=== PATIENT | female | born 1945 | race Hispanic/Latino ===

== ENCOUNTER 2017-09-03 11:21 | Outpatient (CLI) | payer MEDICARE, MEDICAID ==
[2017-09-03 13:32] LABS: Prothrombin Time 16.5 SEC (12.0-14.7)
[2017-09-03 13:33] LABS: Mean Platelet Volume 8.9 fL (7.4-10.4); PTT 37.1 SEC (22.9-36.1); Red Blood Cell (RBC) Count 3.74 mill/uL (4.20-5.40); White Blood Cell (WBC) Count 2.6 thou/uL (4.8-10.8)
[2017-09-03 13:56] LABS: ALT (SGPT) 23 U/L (8-55); AST (SGOT) 38 U/L (5-34); Alkaline Phosphatase 136 U/L (40-150); Anion Gap 8 mmol/L (10-20); BUN (Urea Nitrogen) 19 mg/dL (9.8-20.1); Calc. Creatinine Clearance 0 mL/min (70-130); Calcium 9.1 mg/dL (7.8-10.44); Carbon Dioxide 26 mmol/L (23-31); Chloride 106 mmol/L (98-107); Estimated GFR-MDRD 61; Globulin 4.2 g/dL (2.4-3.5); Protein, Total 7.2 g/dL (6.0-8.3)
== END 2017-09-03 11:22 | disposition home or self-care (01) ==
LOC: LABBT 11:21
PROVIDERS: ATTEND Internal Medicine Cardiovascular Disease
DX: Z01.818 Encounter for other preprocedural examination (principal); R94.39 Abnormal result of other cardiovascular function study
CPT/HCPCS: 80053; 85027; 85610; 85730

== ENCOUNTER 2017-09-06 05:46 | Day surgery (SDC) | payer MEDICARE, MEDICAID ==
[2017-09-03 12:04] VITALS: BMI 40.6
[2017-09-06] MEDS ORDERED: Heparin 1000 UNIT/NS 500ML(OR) 1,000 ML ONE (07:07)
[2017-09-06] MEDS ORDERED: Fentanyl 100 MCG/2 ML VIAL ONE (07:37)
[2017-09-06] MEDS ORDERED: Midazolam HCl 2 mg/2 ml Vial ONE (07:37)
--- NOTE | 2017-09-06 13:09 | CON ---
DATE OF CONSULTATION: 09/06/2017 REASON FOR CONSULTATION: Evaluation for coronary artery bypass surgery. PERTINENT HISTORY: The patient is a 72-year-old female who underwent cardiology evaluation following detection of a heart murmur. Transthoracic echo demonstrated preserved left ventricular function with ejection fraction of 60-65% and mild with peak and mean aortic valve gradients of 21 and 12 mmHg, respectively. Stress test, however, was abnormal with evidence of inferior ischemia. Based on this and complaints of exertional shortness of breath, cardiac catheterization was performed today which demonstrated left main and three-vessel coronary artery disease. At catheterization, ejection fraction was 60% with LVEDP of 16. The patient was subsequently referred for coronary artery bypass surgery. PAST MEDICAL HISTORY: 1. Obesity. 2. Hypertension. 3. Diabetes. 4. Dyslipidemia. 5. Primary biliary sclerosis/cirrhosis. 6. Profound thrombocytopenia. 7. Hypothyroidism. PAST SURGICAL HISTORY: C-sections x5. ALLERGIES: HYDROCODONE. SOCIAL HISTORY: Non-smoker. Nondrinker. FAMILY HISTORY: Noncontributory for premature coronary artery disease. REVIEW OF SYSTEMS: No history of stroke, kidney disease, or claudication. CURRENT MEDICATIONS: Tirosint 25 mcg daily, Ursodiol 300 mg q.i.d., metformin ER 500 mg daily, Lipitor 20 mg daily. LABORATORY AND X-RAY: Hemoglobin 12.0, platelet count 63,000. INR 1.3. Creatinine 0.86. PHYSICAL EXAMINATION: VITAL SIGNS: Height 4 feet 11 inches, weight 203 to 208 pounds. Blood pressure 121/53, heart rate 70. GENERAL: Obese female in no acute distress. She is fully oriented. HEENT: Grossly unremarkable. NECK: Without JVD or adenopathy. LUNGS: Clear with good inspiratory effort. HEART: Regular rate and rhythm with prominent systolic ejection murmur best heard right upper sternal border with transmission to each carotid area. ABDOMEN: Soft and nontender, without palpable mass. EXTREMITIES: Without edema. VASCULAR: Palpable radial, femoral, and dorsalis pedis pulses bilaterally. No distinct carotid bruits were heard. Abdominal aorta is nonpalpable. NEUROLOGIC: No focal deficits. IMPRESSION: Left main and three-vessel coronary artery disease with preserved left ventricular function. RECOMMENDATIONS: Coronary artery bypass surgery to which the patient is in agreement following discussion with her referring hand cutter apprentice and myself. The indications, benefits, alternatives, and risks were explained in detail to the patient and her accompanying family members. All questions were answered. The patient agrees to proceed without reservations. The case will be scheduled for next week allowing time for discussion with the patient's tailor garment fitter in reference to her liver condition. MICKEYD
[2017-09-06] MEDS ORDERED: Iopamidol 370 76% 100 ML VIAL ONE (15:32)
[2017-09-06] MEDS ORDERED: Iopamidol 370 76% 50 ML VIAL FS ONE (15:32)
== END 2017-09-06 13:30 | disposition home or self-care (01) ==
LOC: CCL 05:46
PROVIDERS: ATTEND Internal Medicine Cardiovascular Disease
DX: I25.10 Atherosclerotic heart disease of native coronary artery without angina pectoris (principal); E66.9 Obesity, unspecified; I10 Essential (primary) hypertension; E11.9 Type 2 diabetes mellitus without complications; E78.5 Hyperlipidemia, unspecified; K74.3 Primary biliary cirrhosis; E03.9 Hypothyroidism, unspecified; M19.90 Unspecified osteoarthritis, unspecified site; K21.9 Gastro-esophageal reflux disease without esophagitis; M48.00 Spinal stenosis, site unspecified; Z68.41 Body mass index [BMI] 40.0-44.9, adult; Z79.84 Long term (current) use of oral hypoglycemic drugs; Z79.899 Other long term (current) drug therapy; Z88.5 Allergy status to narcotic agent; Z88.6 Allergy status to analgesic agent; Z91.018 Allergy to other foods; Z98.42 Cataract extraction status, left eye; Z98.41 Cataract extraction status, right eye; Z96.1 Presence of intraocular lens; Z90.49 Acquired absence of other specified parts of digestive tract; Z98.890 Other specified postprocedural states
CPT/HCPCS: 80061; 82962; 93005; 93458; C1760; C1769; 36416; 93010; 99152; 99153; J1644; J2250; J3010

== ENCOUNTER 2017-09-10 08:05 | Inpatient (IN) | payer MEDICARE, MEDICAID ==
[2017-09-10] MEDS ORDERED: Heparin 10,000 UNITS/1 ML VIAL 30,000 UNITS in Sodium Chloride 0.9% 1,000 ML FS SCH (08:15)
--- NOTE | 2017-09-10 08:57 | RAD ---
2 VIEWS CHEST: Date: 09/10/17 HISTORY: Preoperative chest radiograph, 72-year-old female. FINDINGS: PA and lateral views of chest obtained. There is calcification of the aorta. The lungs are well aerat ed. No evidence of active intrathoracic disease seen. No evidence of effusions, pneumonia, or pneumot horax seen. IMPRESSION: Normal 2 views chest. POS: [facility]
[2017-09-10] MEDS ORDERED: CEFAZOLIN/Water 2 GM/20 ML SYRINGE ONE (09:54)
[2017-09-10] MEDS ORDERED: DOPamine 400 MG/D5W 250 ML 0 ML ONE (10:22)
[2017-09-10] MEDS ORDERED: Albumin 5% 0 ML ONE (10:22)
[2017-09-10] MEDS ORDERED: Midazolam HCl 5 mg/5 ml Vial ONE (10:24)
[2017-09-10] MEDS ORDERED: Fentanyl 250 MCG/5 ML VIAL ONE (10:25)
[2017-09-10] MEDS ORDERED: Norepinephrine 8 MG/0.9% NS 250 ML ONE (10:25)
[2017-09-10] MEDS ORDERED: Vecuronium 10 MG VIAL ONE ×2 (10:25→16:11)
[2017-09-10] MEDS ORDERED: Albumin 5% 500 ML ONE (13:24)
[2017-09-10] MEDS ORDERED: Bisacodyl 5 MG TAB PO PRN (15:31)
[2017-09-10] MEDS ORDERED: Nitroglycerin 50 MG/250 ML BOT 250 ML IVPB PRN (15:31)
[2017-09-10] MEDS ORDERED: Fentanyl 100 MCG/2 ML VIAL SLOW IVP PRN ×2 (15:31)
[2017-09-10] MEDS ORDERED: Morphine 2 mg/2ml in 0.9% NaCl PF SYRINGE SLOW IVP PRN (15:31)
[2017-09-10] MEDS ORDERED: Phenylephrine 10 MG/NS 250 ML 250 ML IVPB PRN (15:31)
[2017-09-10] MEDS ORDERED: Ondansetron HCl/PF 4 MG/2 ML Vial IVP PRN (15:31)
[2017-09-10] MEDS ORDERED: niCARdipine HCl 25 MG in Sodium Chloride 0.9% 250 ML 240 ML IVPB PRN (15:31)
[2017-09-10] MEDS ORDERED: Guaifenesin DM 100-10/5 ML UDCUP PO PRN (15:31)
[2017-09-10] MEDS ORDERED: Bisacodyl 10 MG SUPP PR PRN (15:31)
[2017-09-10] MEDS ORDERED: Promethazine HCl 25 MG/ML VIAL IM PRN (15:31)
[2017-09-10] MEDS ORDERED: Mag-Al 1200 mg/1200 mg/30 ML UDCUP PO PRN (15:31)
[2017-09-10] MEDS ORDERED: DOPamine 400 MG/D5W 250 ML 250 ML IVPB PRN (15:31)
[2017-09-10] MEDS ORDERED: Post-Op Insulin Drip Protocol IVPB ONE (15:31)
[2017-09-10] MEDS ORDERED: hydrALAZINE 20 MG/ML VIAL SLOW IVP PRN (15:31)
[2017-09-10] MEDS ORDERED: Dextrose 50% Abboject 50 ML SYRINGE SLOW IVP PRN (15:39)
[2017-09-10] MEDS ORDERED: Dextrose 5% in Water 1,000 ML IV PRN (15:39)
[2017-09-10] MEDS: Sodium Chloride 0.9% 1,000 ML IV SCH (15:45)
[2017-09-10 15:49] LABS: #Eosinphils 0.1 thou/uL (0.0-0.7); #Lymphocytes 0.6 thou/uL (1.20-3.40); #Monocytes 0.3 thou/uL (0.11-0.59); #Neutrophils 2.9 thou/uL (1.40-6.50); %Eosinophils 1.6 % (0.0-10.0); %Lymphocytes 14.9 % (21.0-51.0); %Monocytes 6.6 % (0.0-10.0); Hematocrit 25.1 % (36.0-47.0); Mean Platelet Volume 7.1 fL (7.4-10.4); White Blood Cell (WBC) Count 3.8 thou/uL (4.8-10.8)
[2017-09-10 15:54] LABS: PTT 41.1 SEC (22.9-36.1); Prothrombin Time 18.8 SEC (12.0-14.7)
[2017-09-10 16:05] LABS: Mechanical Tidal Volume 500 ml; Mode SIMV.PSV; Modified Allen's Test NOT DONE; Oxyhemoglobin 95.6 % (94.0-97.0); Pressure Support 10 cmH2O; Sodium 139 mmol/L (135-148); Vent YES
[2017-09-10 16:11] LABS: Anion Gap 13 mmol/L (10-20); BUN (Urea Nitrogen) 16 mg/dL (9.8-20.1); Calc. Creatinine Clearance 107 mL/min (70-130); Calcium 8.5 mg/dL (7.8-10.44); Carbon Dioxide 18 mmol/L (23-31); Chloride 108 mmol/L (98-107); Estimated GFR-MDRD 82
[2017-09-10] MEDS ORDERED: Lidocaine 1% PF 5 ML VIAL ONE (16:11)
[2017-09-10] MEDS ORDERED: Protamine Sulfate 250 MG/25 ML VIAL ONE (16:11)
[2017-09-10] MEDS ORDERED: Heparin 10,000 UNITS/ 10 ML VIAL ONE (16:11)
[2017-09-10] MEDS ORDERED: Aminocaproic Acid 5 GM/20 ML VIAL ONE (16:11)
[2017-09-10] MEDS ORDERED: Propofol 200 MG/20 ML VIAL ONE (16:11)
[2017-09-10] MEDS ORDERED: Sodium Bicarb 50 MEQ/50 ML Abboject 8.4% SYRINGE ONE (16:13)
[2017-09-10] MEDS: Potassium Chloride 20 MEQ/100 ML PREMIX BAG IVPB PRN ×2 (16:39→23:26)
--- NOTE | 2017-09-10 17:03 | OP ---
DATE OF SERVICE: 09/10/2017 PREOPERATIVE DIAGNOSES: Left main and three-vessel coronary artery disease with preserved left ventricular function. POSTOPERATIVE DIAGNOSES: Left main and three-vessel coronary artery disease with preserved left ventricular function. SURGEON: Jaxon Wade M.D. STATEMENT CLERK: Capo Gillette M.D. SPONGE AND NEEDLE COUNTS: Correct. ANESTHESIA: General. OPERATION PERFORMED: Coronary artery bypass grafting x2 with left internal mammary artery to LAD and reversed greater saphenous vein to OM. FINDINGS AT OPERATION: Essentially normal sized heart with no obvious LV scarring. Nothing suitable was found to graft in the RCA/PDA distribution. At the sites of distal anastomosis the LAD and OM were 1.5-1.75 mm vessels. Left internal mammary artery and greater saphenous vein were excellent conduits. DESCRIPTION OF OPERATION: The patient was taken to the operating room. Following the induction of general endotracheal anesthesia, the patient was prepped and draped in the usual sterile fashion. Sternotomy was performed. Thorough search revealed nothing suitable found to graft in the RCA/PDA system. A segment of left distal thigh greater saphenous vein was harvested. Left internal mammary artery was dissected in extrapleural fashion. An obvious bleeding diathesis was quite evident. This was presumed due to her cirrhosis and profound thrombocytopenia. Heparin dose was given achieving an ACT greater than 350. The operation was performed off pump using the Guidant system and mister-blower. The vein graft was anastomosed in end-to-side fashion to the OM using a continuous 7-0 Prolene suture. Partial clamp was applied to the ascending aorta and the proximal vein graft anastomosis performed to a punch hole using a continuous 6-0 Prolene suture. Partial clamp was removed and vein graft deaired. Left internal mammary artery was now anastomosed in end-to-side fashion to the LAD using a continuous 7-0 Prolene suture. Mammary artery pedicle was tacked to the epicardium using 6-0 Prolene sutures. Heparin was reversed with protamine. To assist with the obvious coagulopathy, 2 single donor packs of platelets and 2 units of FFP were given. Adequate hemostasis was now observed. Pericardium was not closed. Floyd drains were positioned within the pericardial well and left pleural cavity. Sternum was reapproximated with interrupted #5 stainless steel wires. Linea alba and fascia were closed with running #1 Vicryl sutures followed by closure of the subcutaneous tissues with a running 2-0 Vicryl suture. Skin was closed with a 3 -0 Vicryl subcuticular stitch. Prior to closure, vancomycin paste had been applied to the sternal halves. Platelet-enriched and platelet-poor plasma had also been applied to the sternal wound. The patient was taken to the ICU. GERMÁN
[2017-09-10] MEDS: Ketorolac Tromethamine 30 MG/ML VIAL IVP SCH ×2 (17:59→23:25)
[2017-09-10] MEDS: CEFAZOLIN/Water 2 GM/20 ML SYRINGE SLOW IVP SCH (18:01)
--- NOTE | 2017-09-10 18:03 | RAD ---
AP CHEST: Date: 09-10-17 History: Post-operative chest radiograph, open heart surgery. Comparison: 09-10-17 earlier in the day. FINDINGS: AP chest demonstrates sternotomy wires seen. Pericardial drain is in place. The patient has been intu bated. Endotracheal tube is in good position. Mediastinal drain is also in place. There has been plac ement of a right subclavian central line. Areas of atelectasis or patchy density developed in the left midlung, possibly representing atelectas is or patchy pneumonia. No evidence of effusion seen. IMPRESSION: 1. Lines and tubes in good position. 2. Mid left lung areas of atelectasis or pneumonia. POS: [facility]
--- NOTE | 2017-09-10 18:06 | EKG ---
Test Reason : POST CABG Blood Pressure : / mmHG Vent. Rate : 069 BPM Atrial Rate : 069 BPM P-R Int : 156 ms QRS Dur : 086 ms QT Int : 480 ms P-R-T Axes : 062 046 043 degrees QTc Int : 514 ms Normal sinus rhythm Prolonged QT Abnormal ECG When compared with ECG of 06-SEP-2017 06:29, (Unconfirmed) More ST sagging noted anterolaterally which may suggest ischemia. Non-specific change in ST segment in Anterior leads T wave inversion now evident in Anterior leads Confirmed by RANDY TILLEY ([id number]) on 09/10/2017 6:06:31 PM Referred By: CONSTANCE Confirmed By:RANDY TILLEY
[2017-09-10] MEDS: Famotidine/PF 20 mg/2ml Vial SLOW IVP SCH (20:58)
[2017-09-10] MEDS: Ursodiol 300 MG CAP PO SCH (21:00)
[2017-09-10 21:34] LABS: Oxyhemoglobin 97.6 % (94.0-97.0); Sodium 140 mmol/L (135-148)
[2017-09-10 21:39] LABS: Modified Allen's Test NOT DONE
[2017-09-10 21:40] LABS: Mode PSV/CPAP; Pressure Support 10 cmH2O; Vent YES
[2017-09-10 21:45] LABS: Hematocrit 24.2 % (36.0-47.0)
--- NOTE | 2017-09-10 22:22 | CON ---
DATE OF CONSULTATION: 09/10/2017 PRIMARY LEARNING SUPPORT ASSISTANT: Edmond Perez MD REASON FOR CONSULTATION: Status post bypass surgery. HISTORY OF PRESENT ILLNESS: Ms. Hamilton is a very pleasant 72-year-old female who comes to [facility] for planned bypass surgery. She had a stress test done recently that showed inferior isc hemia and in the setting of being short of breath with exertion, so she was taken to the medical lab director whe re she was found to have severe left main disease as well as an occluded RCA. She was referred for b ypass surgery. Dr. Wade performed surgery earlier today. She had a LEBRON to her LAD secondary to s evere left main disease and she also had a vein graft to OM. There was no reasonable target on the R CA, so this was not bypassed. On my evaluation, she is currently sedated and intubated, but starting to wake up and is following commands. PAST MEDICAL HISTORY: 1. Primary biliary cirrhosis. 2. Hyperlipidemia. 3. Type 2 diabetes. 4. Gastroesophageal reflux disease. 5. Hypertension. 6. Spinal stenosis. 7. Hypothyroidism. PAST SURGICAL HISTORY: 1. Appendectomy. 2. . 3. CABG x2 as above. OUTPATIENT MEDICATIONS: Include, 1. Flaxseed oil. 2. Levothyroxine 25 mcg a day. 3. Ursodiol. 4. Metformin 500 mg b.i.d. 5. Losartan 25 mg daily. 6. Vitamin C. ALLERGIES: To HYDROCODONE. FAMILY HISTORY: Mother with heart disease. Sister with lung cancer, brother with type 2 diabetes. SOCIAL HISTORY: No alcohol, tobacco or drugs. REVIEW OF SYSTEMS: Unobtainable as the patient is sedated and intubated. PHYSICAL EXAMINATION: VITAL SIGNS: Temperature 92.6 on arrival, she was on off pump procedure. Heart rate of 75, satting 100% on 50% FiO2. Blood pressure 105/37. GENERAL: Sedated and intubated. LUNGS: Have coarse breath sounds anteriorly. CARDIOVASCULAR: S1, S2. There is a 2 component rub. ABDOMEN: Soft, positive bowel sounds. EXTREMITIES: No edema. SKIN: Warm and dry. LABORATORY WORK: Reviewed. CBC, ABGs, Coags, CMP, and BNP. ASSESSMENT: 1. Status post 2-vessel bypass. 2. Multivessel coronary artery disease. 3. Hypertension. 4. Primary biliary cirrhosis with chronic thrombocytopenia. PLAN: 1. Continue supportive care. 2. Statin for life. 3. Beta luis and LUDY inhibitor once blood pressure allows. 4. PT once extubated and ready for it. Thank you for allowing us to participate in the care of your patient.
[2017-09-11] MEDS: CEFAZOLIN/Water 2 GM/20 ML SYRINGE SLOW IVP SCH ×2 (02:27→10:04)
[2017-09-11] MEDS: Sodium Chloride 0.9% 1,000 ML IV SCH (02:40)
[2017-09-11 05:10] LABS: #Lymphocytes 0.4 thou/uL (1.20-3.40); #Monocytes 0.3 thou/uL (0.11-0.59); #Neutrophils 2.9 thou/uL (1.40-6.50); %Eosinophils 0.1 % (0.0-10.0); %Lymphocytes 11.6 % (21.0-51.0); %Monocytes 8.9 % (0.0-10.0); Hematocrit 25.5 % (36.0-47.0); Mean Platelet Volume 7.7 fL (7.4-10.4); Red Blood Cell (RBC) Count 2.65 mill/uL (4.20-5.40); White Blood Cell (WBC) Count 3.7 thou/uL (4.8-10.8)
[2017-09-11 05:25] LABS: Anion Gap 9 mmol/L (10-20); BUN (Urea Nitrogen) 22 mg/dL (9.8-20.1); Calc. Creatinine Clearance 89 mL/min (70-130); Carbon Dioxide 23 mmol/L (23-31); Chloride 110 mmol/L (98-107); Estimated GFR-MDRD 66
[2017-09-11] MEDS: Ketorolac Tromethamine 30 MG/ML VIAL IVP SCH ×3 (05:56→17:13)
[2017-09-11] MEDS: Levothyroxine Sodium 25 MCG TAB PO SCH (05:58)
--- NOTE | 2017-09-11 06:30 | CON ---
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 Patient just underwent CABG. HISTORY OF PRESENT ILLNESS: Ms. Hamilton is a 72-year-old female who I have seen for several years wit h regard to primary biliary cirrhosis. She has been on ursodiol. She had biopsy proven of cirrhosis in 05/2014. She has been fairly well compensated. We saw her when she has had endoscopies in 2013 with polyps removed for screening purposes and had grade I to II varices with no stigmata of bleeding . She has had issues with thrombocytopenia and mild encephalopathy, for which she has been on lactul ose. She was actually going to have a followup endoscopy for varices screening this week when Dr. Lauren ken contacted me regarding the impending bypass surgery for 80% left main occlusion which is covered on cath, which was positive by abnormal stress test was prompted for easy fatigability being worked up by her cafe operator, Dr. Perez. Presently she is intubated in the ICU. There were no major comp lications during surgery. She did receive some FFP and platelets, but no transfusions. She was done off pump. On talking with the nurse, she needs to have good urine output here. MEDICATIONS AT HOME: Metformin, ursodiol, lisinopril, levothyroxine, lactulose, flax seed, atorvasta tin. PRESENT MEDICATIONS: P.r.n. Maalox, albumin p.r.n., aspirin 325 daily, , p.r.n. dopamine, Pepci d 20 IV q.12, p.r.n. fentanyl, hydralazine, Toradol 15 IV q.6 for 24 hours p.r.n. for pain, morphine p.r.n. for pain, levothyroxine, nicotine, nitroglycerin, Zofran, Actigall 300 mg p.o. t.i.d. PAST MEDICAL HISTORY: 1. Primary biliary cholangitis with cirrhosis diagnosed in 2013. 2. Morbid obesity. 3. Diabetes. 4. Coronary artery disease. 5. Dyslipidemia. 6. Thrombocytopenia secondary to portal hypertension. 7. Hypothyroidism. PAST SURGICAL HISTORY: x5, liver biopsy, upper and lower endoscopies, coronary artery bypa ss grafting today. ALLERGIES: HYDROCODONE and TYLENOL per patient. SOCIAL HISTORY: She is nonsmoker, nondrinker. FAMILY HISTORY: Noncontributory. REVIEW OF SYSTEMS: Unable to be obtained, as she is intubated presently. PHYSICAL EXAMINATION: VITAL SIGNS: Temperature is 98, pulse 70, blood pressure 113/45. Urine output 500 mL on arrival to the ICU, (04:54). LUNGS: Clear. HEART: Regular rate and rhythm. ABDOMEN: Nontender. EXTREMITIES: No clubbing, cyanosis or edema. LABORATORY STUDIES: White count 3.8, hemoglobin 8.5, it was 11 to 12 prior to the surgery on 09/03, platelet count 75,000. INR 1.5, 1.3. Sodium 135, potassium 3.9, BUN and creatinine are 16 and 0.7 w ith recent liver function tests AST 38, ALT 23, alkaline phosphatase 136, albumin 3, protein 4.2. ASSESSMENT: 1. Cirrhosis, primary biliary cirrhosis, Ana class A/B . 2. Mild encephalopathy and thrombocytopenia issues. 3. Morbid obesity. 4. Coronary artery disease, status post bypass surgery today. RECOMMENDATIONS: 1. We will need to continue lactulose when she can start p.o. Even with an NG tube if she is extuba mary carmen tomorrow, we could start it then, this would not exceed 24 hours with using the low-dose of Torad ol secondary to worsening renal dysfunction, which is already probably mild significant cirrhos is. 2. Agree with PPI or H2 luis for ulcer prophylaxis. 3. We will follow along during his hospitalization. 4. Problems with renal output. Could consider albumin 25 mg IV every 8 hours along with octreotide drip, which is going to help for the hepatorenal failure if there are no signs of sepsis or bleeding to explain prerenal perfusion issues.
--- NOTE | 2017-09-11 07:57 | RAD ---
PORTABLE UPRIGHT FRONTAL CHEST RADIOGRAPH: Date: 09-11-17 Comparison: 09-10-17 History: Evaluate chest following open heart surgery. FINDINGS: The endotracheal tube has been removed. Post-surgical drain overlies mid left hemithorax and mediasti num. Stable midline sternotomy wires and right sided vascular catheter. There is dense opacity in the left base suggesting left lower lobe consolidation/collapse. Midline sternotomy wires and mediastinal clips are present. IMPRESSION: Volume loss in the left lower lobe. Post-operative changes as above. POS: [facility]
[2017-09-11] MEDS ORDERED: FLU VACC TS2017-18 (>65YR) 0.5 ML SYRINGE IM ONE (09:00)
[2017-09-11] MEDS: Aspirin 325 MG TAB PO SCH (10:03)
[2017-09-11] MEDS: Ursodiol 300 MG CAP PO SCH ×3 (10:03→20:57)
[2017-09-11] MEDS: Famotidine/PF 20 mg/2ml Vial SLOW IVP SCH ×2 (10:04→20:57)
[2017-09-11] MEDS: Atorvastatin Calcium 20 MG TAB PO SCH (10:04)
[2017-09-11] MEDS ORDERED: Insulin Detemir 100 UNITS/ML 6 UNITS in Pre-Filled Syringe 1 EACH SC SCH (15:45)
[2017-09-11] MEDS ORDERED: Furosemide 40 MG/4 ML VIAL SLOW IVP SCH (17:45)
--- NOTE | 2017-09-11 18:50 | PDOC.CTH ---
Cardiology Progress Note - Subjective She is doing better today. Was extubated yesterday. - Objective Vital Signs Temp Pulse Resp Pulse Ox 09/11/17 15:00 98.4 F 09/11/17 11:00 98.2 F 09/11/17 08:26 100 09/11/17 08:00 98.7 F 76 16 Admit Weight 216 lb 8 oz Weight 216 lb 8 oz 09/10/17 09/11/17 09/12/17 06:59 06:59 06:59 Intake Total 1368 1699.3 Output Total 1495 1150 Balance -127 549.3 - Physical Examination General/Neuro: alert & oriented x3, NAD Neck: no JVD present Lungs: unlabored respirations Heart: RRR Abdomen: NT/ND Extremities: + edema B (1+) - Telemetry Telemetry Rhythm: NSR - Labs Result Diagrams: 09/11/17 03:45 09/11/17 03:45 - Assessment/Plan 1. Multivessel CAD 2. S/P CABG 3. Mild 4. Primary billiary cirrhosis. 5. 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 PLAN: - Aspirin and statin for life - BB and ACEI once BP allows. - PT once tolerated. - GI following for PBC.
[2017-09-11] MEDS ORDERED: Insulin Regular 300 UNITS/3 ML VIAL ONE (20:49)
[2017-09-11] MEDS: Insulin Regular 300 UNITS/3 ML VIAL SC PRN (20:58)
--- NOTE | 2017-09-11 22:24 | PRG ---
DATE OF SERVICE: 09/11/2017 SUBJECTIVE: Ms. Hamilton is postop day #1 from heart bypass surgery. She is mentating clearly. She h as been extubated. She is voiding and she started to eat. MEDICATIONS: Include Maalox, DuoNeb, Lipitor, Pepcid, sliding scale insulin, lactulose 20 grams b.i. d., Zofran p.r.n., Phenergan p.r.n., and ursodiol 300 mg p.o. t.i.d. OBJECTIVE: VITAL SIGNS: Temperature is 98, heart rate is 80 and blood pressure 119/25. LUNGS: Clear. HEART: Regular rate and rhythm. ABDOMEN: Nontender. EXTREMITIES: No clubbing, cyanosis or edema. LABORATORY STUDIES: White count 3.7 and hemoglobin 8.5, this has been stable since the postoperative setting. Her base hemoglobin is usually between 11 and 12, platelet count is 87,000. BUN and creat inine are 22 and 0.84 today. ASSESSMENT: 1. Status post off pump bypass for coronary artery disease. 2. Cirrhosis Ana A from primary biliary cholangitis. 3. History of mild hepatic encephalopathy, responsive to lactulose. 4. No prior varices, but the patient was due for followup EGD this year. This has been held on seco ndary to her need for bypass surgery. PLAN: We will continue to follow along with you, try to avoid NSAIDs, watch fluid status and we will go ahead and check her LFTs and INR again tomorrow to make sure liver did not suffer any shock with the surgery.
[2017-09-12] MEDS: traMADol HCl 50 MG TAB PO PRN ×3 (00:34→16:24)
[2017-09-12] MEDS: Insulin Regular 300 UNITS/3 ML VIAL SC PRN ×6 (00:43→20:18)
[2017-09-12 04:30] LABS: Anion Gap 7 mmol/L (10-20); BUN (Urea Nitrogen) 28 mg/dL (9.8-20.1); Calc. Creatinine Clearance 75 mL/min (70-130); Calcium 7.8 mg/dL (7.8-10.44); Carbon Dioxide 24 mmol/L (23-31); Chloride 108 mmol/L (98-107); Estimated GFR-MDRD 52
[2017-09-12 04:31] LABS: ALT (SGPT) 10 U/L (8-55); AST (SGOT) 36 U/L (5-34); Alkaline Phosphatase 82 U/L (40-150); Bilirubin, Direct 0.6 mg/dL (0.1-0.3); Protein, Total 5.4 g/dL (6.0-8.3)
[2017-09-12 04:34] LABS: #Lymphocytes 0.9 thou/uL (1.20-3.40); #Monocytes 0.5 thou/uL (0.11-0.59); #Neutrophils 3.3 thou/uL (1.40-6.50); %Eosinophils 0.8 % (0.0-10.0); %Lymphocytes 18.1 % (21.0-51.0); %Monocytes 10.8 % (0.0-10.0); Hematocrit 26.7 % (36.0-47.0); Mean Platelet Volume 8.5 fL (7.4-10.4); Red Blood Cell (RBC) Count 2.75 mill/uL (4.20-5.40); White Blood Cell (WBC) Count 4.7 thou/uL (4.8-10.8)
[2017-09-12 04:36] LABS: Prothrombin Time 18.7 SEC (12.0-14.7)
[2017-09-12] MEDS: Levothyroxine Sodium 25 MCG TAB PO SCH (06:27)
[2017-09-12 07:39] LABS: Oxyhemoglobin 97.8 % (94.0-97.0); Sodium 139 mmol/L (135-148)
[2017-09-12 07:40] LABS: Oxyhemoglobin 97.6 % (94.0-97.0); Sodium 138 mmol/L (135-148)
[2017-09-12 07:40] LABS: Oxyhemoglobin 97.8 % (94.0-97.0); Sodium 140 mmol/L (135-148)
[2017-09-12 07:40] LABS: Oxyhemoglobin 97.7 % (94.0-97.0); Sodium 139 mmol/L (135-148)
--- NOTE | 2017-09-12 08:06 | RAD ---
PORTABLE CHEST: COMPARISON: Prior day's exam. HISTORY: Respiratory distress. FINDINGS: Heart size appears slightly enlarged. There is postop sternotomy change. A right-sided subclavian l ine is present. Chest tubes remain in place. Atelectatic changes were seen in the lung bases. IMPRESSION: Stable exam. POS: [facility]
--- NOTE | 2017-09-12 08:54 | PDOC.CTH ---
Cardiology Progress Note - Subjective She is doing well. Only complaint is pain. She still has chest tubes in as they continue to drain. - Objective Vital Signs Temp Pulse Resp Pulse Ox 09/12/17 08:32 98 09/12/17 08:00 99.0 F 88 22 H 09/12/17 04:00 99.1 F 09/12/17 03:28 97 09/12/17 00:00 98.5 F Admit Weight 216 lb 8 oz Weight 218 lb 11.177 oz 09/11/17 09/12/17 09/13/17 06:59 06:59 06:59 Intake Total 1368 1974.3 400 Output Total 1495 1989 70 Balance -127 -15.7 330 - Physical Examination General/Neuro: alert & oriented x3, NAD Neck: no JVD present Lungs: CTA, unlabored respirations Heart: RRR Abdomen: NT/ND Extremities: + edema B (2+) - Telemetry Telemetry Rhythm: NSR - Labs Result Diagrams: 09/12/17 03:50 09/12/17 03:50 - Assessment/Plan 1. Multivessel CAD 2. S/P CABG 3. Mild 4. Primary billiary cirrhosis. 5. 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 PLAN: - Aspirin and statin for life - Will start low dose coreg. - ACEI once BP allows. - PT once tolerated. - GI following for PBC.
[2017-09-12] MEDS: Ursodiol 300 MG CAP PO SCH ×3 (09:00→20:15)
[2017-09-12] MEDS: Atorvastatin Calcium 20 MG TAB PO SCH (09:00)
[2017-09-12] MEDS: Aspirin 325 MG TAB PO SCH (09:01)
[2017-09-12] MEDS: Famotidine 20 MG TAB PO SCH ×2 (09:01→20:15)
[2017-09-12 09:06] LABS: Mode OR ABG; Vent YES
[2017-09-12 09:07] LABS: Mode OR ABG; Vent YES
[2017-09-12 09:08] LABS: Vent YES
[2017-09-12 09:08] LABS: Mode OR ABG; Vent YES
[2017-09-12 09:09] LABS: Mode OR ABG
[2017-09-12] MEDS ORDERED: Carvedilol 3.125 MG TAB PO SCH ×2 (17:00→18:30)
--- NOTE | 2017-09-12 21:47 | PRG ---
DATE OF SERVICE: 09/12/2017 HISTORY OF PRESENT ILLNESS: Ms. Hamilton is postoperative day #2 from her coronary bypass grafting. S he is doing well. She states he has been tired. PHYSICAL EXAMINATION: VITAL SIGNS: Temperature is 98. She is afebrile, blood pressure 131/47, pulse 71. She has had one bowel movement today she states. Ins and outs, 1973 and 1989. LUNGS: Clear. HEART: Regular rhythm. ABDOMEN: Nontender. EXTREMITIES: Without overt edema. PSYCHIATRIC: She is alert and oriented. She has no asterixis. LABORATORY STUDIES: White count 4.7, hemoglobin 9, platelet count 84,000. INR 1.5. Sodium 135, BUN and creatinine are 28 and 1.04. Liver function tests, bilirubin is 1. AST and ALT of 36 and 10. A lbumin is 2.5. ASSESSMENT: 1. Status post bypass grafting day 2. 2. Cirrhosis from primary biliary cholangitis, Ana A, stable. 3. Slight increase in creatinine. We will watch renal function closely. If she has issues with poo r renal output, we can consider albumin and octreotide to stable setting of hepatorenal syndrome. At home, she was not using diuretics on a regular basis. We will continue to follow.
--- NOTE | 2017-09-12 22:18 | CON ---
DATE OF CONSULTATION: 09/12/2017 HISTORY OF PRESENT ILLNESS: Ms. Hamilton is a very pleasant 72-year-old female who has undergone coron trena bypass grafting. I was consulted because of her presence in the Critical Care Unit. She had a stress test done as an outpatient showing inferior ischemia. She was complaining of shortn ess of breath with exertion at that time. She had left main disease as well as an occluded right cor onary. She has had a LEBRON to her LAD and vein graft to her OM. The right coronary was not bypassabl e. She has been extubated and doing well, comfortable in bed. She had no complaints when I saw her and said her chest did not really hurt very much surprisingly. PAST MEDICAL HISTORY: Remarkable for; 1. Primary biliary cirrhosis. 2. Lipid disorder. 3. Diabetes. 4. Hypertension. 5. Spinal stenosis. 6. Hypothyroidism. 7. Reflux disease. 8. History of an appendectomy. 9. History of . MEDICATIONS: Prior to admission she is on Synthroid, ursodiol, metformin and losartan. ALLERGIES: She reports intolerance to the HYDROCODONE. FAMILY HISTORY: Positive for heart disease, cancer and diabetes. SOCIAL HISTORY: She is a nonsmoker and nondrinker. REVIEW OF SYSTEMS: Otherwise negative. PHYSICAL EXAMINATION: GENERAL: She is in no distress, very pleasant and cooperative. VITAL SIGNS: Blood pressure 121/49, heart rate 86, respiratory rate is 14 and oximetry is 99%. HEENT: Pupils are equal. Sclerae is anicteric. NECK: Supple. LUNGS: Clear. HEART: Regular rhythm. S1 and S2 are normal. ABDOMEN: Soft and nontender. EXTREMITIES: Without clubbing, cyanosis or edema. LABORATORY DATA: White count 4.7, hemoglobin 9.0 and platelets 84,000. Sodium 135, potassium 4.2, chloride 108, bicarb 24, BUN 28, creatinine 1.04 and albumin was 2.5. IMPRESSION: Status post coronary bypass grafting, doing well postoperatively. We will be happy to ron eli along with the other physicians caring for her.
[2017-09-13] MEDS: Insulin Regular 300 UNITS/3 ML VIAL SC PRN ×5 (00:13→21:03)
[2017-09-13] MEDS: traMADol HCl 50 MG TAB PO PRN ×2 (04:03→21:07)
[2017-09-13] MEDS: Levothyroxine Sodium 25 MCG TAB PO SCH (04:07)
[2017-09-13 04:53] LABS: #Eosinphils 0.1 thou/uL (0.0-0.7); #Lymphocytes 1.1 thou/uL (1.20-3.40); #Monocytes 0.5 thou/uL (0.11-0.59); #Neutrophils 3.3 thou/uL (1.40-6.50); %Basophils 0.8 % (0.0-1.0); %Eosinophils 2.2 % (0.0-10.0); %Lymphocytes 21.1 % (21.0-51.0); %Monocytes 10.5 % (0.0-10.0); Hematocrit 25.5 % (36.0-47.0); Mean Platelet Volume 8.5 fL (7.4-10.4); Red Blood Cell (RBC) Count 2.63 mill/uL (4.20-5.40)
[2017-09-13 05:08] LABS: Anion Gap 6 mmol/L (10-20); BUN (Urea Nitrogen) 33 mg/dL (9.8-20.1); Calc. Creatinine Clearance 74 mL/min (70-130); Calcium 7.5 mg/dL (7.8-10.44); Carbon Dioxide 24 mmol/L (23-31); Chloride 105 mmol/L (98-107); Estimated GFR-MDRD 51
[2017-09-13 06:16] VITALS: BMI 42.5
[2017-09-13] MEDS ORDERED: Furosemide 40 MG TAB PO SCH (07:30)
[2017-09-13] MEDS ORDERED: Potassium Chloride 10 MEQ TAB PO SCH (08:00)
[2017-09-13] MEDS ORDERED: Carvedilol 3.125 MG TAB PO SCH (08:00)
[2017-09-13] MEDS: Famotidine 20 MG TAB PO SCH ×2 (08:14→21:02)
[2017-09-13] MEDS: Atorvastatin Calcium 20 MG TAB PO SCH (08:14)
[2017-09-13] MEDS: Ursodiol 300 MG CAP PO SCH ×3 (08:14→21:02)
[2017-09-13] MEDS: metFORMIN 500 MG TAB PO SCH (08:14)
[2017-09-13] MEDS: Aspirin 325 MG TAB PO SCH (08:15)
[2017-09-13] MEDS ORDERED: Mag-Al 1200 mg/1200 mg/30 ML UDCUP PO PRN (11:05)
[2017-09-13] MEDS ORDERED: Zolpidem Tartrate 5 MG TAB PO PRN (11:05)
[2017-09-13] MEDS ORDERED: Artificial Tear Sol 15 ML BOT EA EYE PRN (11:05)
[2017-09-13] MEDS ORDERED: Ondansetron HCl/PF 4 MG/2 ML Vial IVP PRN (11:05)
[2017-09-13] MEDS ORDERED: Bisacodyl 10 MG SUPP PR PRN (11:05)
[2017-09-13] MEDS ORDERED: Promethazine HCl 25 MG/ML VIAL IM PRN (11:05)
[2017-09-13] MEDS ORDERED: Nitroglycerin 0.4 MG TAB 1 EACH SL PRN (11:05)
[2017-09-13] MEDS ORDERED: Fentanyl 100 MCG/2 ML VIAL SLOW IVP PRN ×2 (11:05)
[2017-09-13] MEDS ORDERED: Bisacodyl 5 MG TAB PO PRN (11:05)
[2017-09-13] MEDS ORDERED: Guaifenesin DM 100-10/5 ML UDCUP PO PRN (11:05)
[2017-09-13] MEDS ORDERED: diphenhydrAMINE 25 MG CAP PO PRN (11:05)
[2017-09-13] MEDS ORDERED: Mineral Oil ENEMA PR PRN (11:05)
[2017-09-13] MEDS ORDERED: Milk Of Magnesia 30 ML UDCUP PO PRN (11:05)
--- NOTE | 2017-09-13 12:58 | PDOC.CTH ---
Cardiology Progress Note - Subjective She is feeling much better. She had her CT taken out and is more comfortable. - Objective Vital Signs Temp Pulse Resp 09/13/17 11:00 98.4 F 09/13/17 07:51 98.3 F 79 17 09/13/17 07:00 98.3 F 09/13/17 04:00 98.7 F Admit Weight 216 lb 8 oz Weight 218 lb 0.595 oz 09/12/17 09/13/17 09/14/17 06:59 06:59 06:59 Intake Total 1974.3 1575 700 Output Total 1989 525 10 Balance -15.7 1050 690 - Physical Examination General/Neuro: alert & oriented x3, NAD Neck: no JVD present Lungs: CTA, unlabored respirations Heart: RRR Abdomen: NT/ND Extremities: + edema B (1+) - Telemetry Telemetry Rhythm: NSR - Labs Result Diagrams: 09/13/17 03:55 09/13/17 03:55 - Assessment/Plan 1. Multivessel CAD 2. S/P CABG 3. Mild 4. Primary billiary cirrhosis. 5. 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 PLAN: - Aspirin and statin for life - Continue low dose coreg. - ACEI once BP allows. - Advance PT as tolerated. - GI following for PBC.
--- NOTE | 2017-09-13 16:25 | PRG ---
DATE OF SERVICE: 09/13/2017 SUBJECTIVE: Ms. Hamilton has done well with no new complaints. PHYSICAL EXAMINATION: Oximetry is 94%. She is afebrile. Heart rate is in 70s, blood pressure 105/4 5. No new exam findings. She has been transferred out of the critical care environment after multivessel CABG. She is under o ther problems of primary biliary cirrhosis and chronic thrombocytopenia. She appears stable and no acute pulmonary issues. We will sign off.
[2017-09-14] MEDS: Levothyroxine Sodium 25 MCG TAB PO SCH (05:03)
--- NOTE | 2017-09-14 06:15 | PRG ---
DATE OF SERVICE: 09/13/2017 SUBJECTIVE: Ms. Hamilton is doing well. She states the lactulose makes her nauseated, tolerates that well at home, but appears to make a little bit nauseated. She is voiding. She has had bowel movemen ts. OBJECTIVE: VITAL SIGNS: Temperature is 99, pulse 76, blood pressure 119/55. LUNGS: Clear. ABDOMEN: Soft. EXTREMITIES: Reveal no edema. LABORATORY STUDIES: White count 5, hemoglobin 8.7, platelet count 83,000. Sodium 131, potassium 4.2 , BUN and creatinine are 33 and 1.06, up from 28 on BUN and up from 1.04 on creatinine. ASSESEMENT: Prior biliary cirrhosis, well compensated. She has minimal problems with fluid overload , but does not take diuretics at home. She is on Ursodiol at home. She has been on some lactulose f or borderline mild encephalopathy at home. Here, it is making her nauseated. PLAN: Watch her renal function and will stop the lactulose and put her on some Xifaxan, which should work for the encephalopathy and give her relief from nausea that way she can do her physical therapy and rehabilitation.
[2017-09-14] MEDS: metFORMIN 500 MG TAB PO SCH (08:54)
[2017-09-14] MEDS: Famotidine 20 MG TAB PO SCH ×2 (08:54→20:57)
[2017-09-14] MEDS: Aspirin 325 MG TAB PO SCH (08:54)
[2017-09-14] MEDS: Atorvastatin Calcium 20 MG TAB PO SCH (08:55)
[2017-09-14] MEDS: Ursodiol 300 MG CAP PO SCH ×3 (08:55→20:57)
[2017-09-14] MEDS: Rifaximin 550 MG TAB PO SCH ×2 (10:17→20:57)
[2017-09-14 12:14] LABS: Anion Gap 8 mmol/L (10-20); BUN (Urea Nitrogen) 39 mg/dL (9.8-20.1); Calc. Creatinine Clearance 67 mL/min (70-130); Calcium 7.6 mg/dL (7.8-10.44); Carbon Dioxide 23 mmol/L (23-31); Chloride 101 mmol/L (98-107); Estimated GFR-MDRD 44
--- NOTE | 2017-09-14 13:55 | PDOC.CTH ---
Cardiology Progress Note - Subjective She is feeling well. Better every day. She has been walking with PT. - Objective Vital Signs Temp Pulse Pulse Pulse Resp BP BP 09/14/17 11:11 98.4 F 79 20 09/14/17 08:40 98.7 F 82 18 09/14/17 08:17 91 90 149/67 H 138/63 09/14/17 08:09 98.4 F 79 20 09/14/17 04:00 99.5 F 87 18 BP Pulse Ox Pulse Ox Pulse Ox 09/14/17 11:11 126/60 94 L 09/14/17 08:40 128/58 L 95 09/14/17 08:17 96 96 09/14/17 08:09 09/14/17 04:00 158/67 H 94 L Admit Weight 216 lb 8 oz Weight 222 lb 4.8 oz 09/13/17 09/14/17 09/15/17 06:59 06:59 06:59 Intake Total 1575 1180 Output Total 525 10 Balance 1050 1170 - Physical Examination General/Neuro: alert & oriented x3, NAD Neck: no JVD present Lungs: unlabored respirations Heart: RRR Abdomen: NT/ND Extremities: + edema B (1+) - Telemetry Telemetry Rhythm: NSR - Labs Result Diagrams: 09/13/17 03:55 09/14/17 11:35 - Assessment/Plan 1. Multivessel CAD 2. S/P CABG 3. Mild 4. Primary billiary cirrhosis. 5. 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 PLAN: - Aspirin and statin for life - Continue low dose coreg. - No ACEI for now due to slight bump in creatinine and BUN. - Advance PT as tolerated. - GI following for PBC.
[2017-09-14] MEDS: traMADol HCl 50 MG TAB PO PRN (20:57)
--- NOTE | 2017-09-14 21:50 | PRG ---
DATE OF SERVICE: 09/14/2017 SUBJECTIVE: Ms. Hamilton feels better, less nausea. She has been walking with PT. OBJECTIVE: VITAL SIGNS: Temperature 98, pulse 79, respirations 20 and blood pressure 149/69. LUNGS: Clear. HEART: Regular rate and rhythm. ABDOMEN: Nontender. 1+ edema in the lower extremities. LABORATORY DATA: Hemoglobin is 8.7 and platelet count 83,000. BUN and creatinine have increased to 39 and 1.19. ASSESSMENT: 1. Multiple vessel coronary artery disease, status post bypass, mild aortic stenosis. 2. Mild biliary cholangitis with cirrhosis, Ana A. 3. Thrombocytopenia secondary to portal hypertension. PLAN: Aspirin and statin, continue. Avoid diuretics at this point in time. She has a slightly elev ated BUN and creatinine. I think she did not have any decompensation of the hepatic function. She m ay be having little bit of renal dysfunction after bypass, but at this time, still voiding well. We will monitor her BUN and creatinine. If she would have worsening function, again involve [facility] in her care, place on octreotide and albumin for possible hepatorenal syndrome, although I think t hat is premature at this point in time. Dr. Ricks will be consumer marketing manager this weekend and will check on her.
[2017-09-15] MEDS: traMADol HCl 50 MG TAB PO PRN ×3 (04:04→18:44)
[2017-09-15] MEDS: Levothyroxine Sodium 25 MCG TAB PO SCH (06:03)
[2017-09-15 07:09] LABS: ALT (SGPT) 10 U/L (8-55); AST (SGOT) 29 U/L (5-34); Alkaline Phosphatase 94 U/L (40-150); Anion Gap 9 mmol/L (10-20); BUN (Urea Nitrogen) 42 mg/dL (9.8-20.1); Bilirubin, Total 1.2 mg/dL (0.2-1.2); Calc. Creatinine Clearance 74 mL/min (70-130); Calcium 7.6 mg/dL (7.8-10.44); Carbon Dioxide 22 mmol/L (23-31); Chloride 101 mmol/L (98-107); Estimated GFR-MDRD 50; Globulin 3.1 g/dL (2.4-3.5); Protein, Total 5.5 g/dL (6.0-8.3)
[2017-09-15] MEDS: Atorvastatin Calcium 20 MG TAB PO SCH (09:42)
[2017-09-15] MEDS: Aspirin 325 MG TAB PO SCH (09:42)
[2017-09-15] MEDS: Famotidine 20 MG TAB PO SCH ×2 (09:42→21:59)
[2017-09-15] MEDS: Ursodiol 300 MG CAP PO SCH ×3 (09:43→21:59)
[2017-09-15] MEDS: Rifaximin 550 MG TAB PO SCH ×2 (09:43→21:59)
[2017-09-15] MEDS: metFORMIN 500 MG TAB PO SCH (10:24)
--- NOTE | 2017-09-15 15:21 | PDOC.CTH ---
Cardiology Progress Note - Subjective Doing well. No new issues or concerns. Continues to walk around but only with PT. - Objective Vital Signs Temp Pulse Resp BP BP Pulse Ox 09/15/17 11:50 98.1 F 74 18 96 09/15/17 08:00 98.3 F 78 18 96 09/15/17 07:50 98.3 F 78 18 113/54 L 96 09/15/17 04:05 98.7 F 84 18 180/77 H 93 L Admit Weight 216 lb 8 oz Weight 221 lb 14.4 oz 09/14/17 09/15/17 09/16/17 06:59 06:59 06:59 Intake Total 1180 780 Output Total 10 880 Balance 1170 -100 - Physical Examination General/Neuro: alert & oriented x3, NAD Neck: no JVD present Lungs: CTA, unlabored respirations Heart: RRR Abdomen: NT/ND Extremities: + edema B (1+) - Telemetry Telemetry Rhythm: NSR - Labs Result Diagrams: 09/13/17 03:55 09/15/17 05:27 - Assessment/Plan 1. Multivessel CAD 2. S/P CABG 3. Mild 4. Primary billiary cirrhosis. 5. 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 PLAN: - Aspirin and statin for life - Continue low dose coreg. - No ACEI until her creatinine stabilizes. - Advance PT as tolerated. - GI following for PBC. - Home any time from cardiac standpoint.
--- NOTE | 2017-09-15 20:41 | PRG ---
DATE OF SERVICE: 09/15/2017 This is a cross coverage for Dr. Omero Evans. SUBJECTIVE: Ms. Alana Hamilton is a very pleasant 72-year-old [place] female with liver cirrhosi s, recent bypass surgery. Her blood urea nitrogen and serum levels were going up. Dr. Omero dubon felt it could be most likely due to diuresis. He advised the patient not to take anymore diure tics. She was also advised to increase her fluid intake. She actually has no symptoms. She is tole rating diet. No abdominal pain, nausea, vomiting, etc. OBJECTIVE: GENERAL: She is awake, alert and communicative. Afebrile. Pulse is 74 and blood pressure is 162/70 . CARDIOVASCULAR SYSTEM: First and second heart sounds are normal. LUNGS: Clear to auscultation. ABDOMEN: Soft and nontender. LABORATORY DATA: From today, sodium 128, potassium 4.3, chloride 101, bicarbonate 22, BUN is 42, but creatinine has come down from 1.19-1.08. Glucose is 126. ASSESSMENT AND PLAN: I have encouraged the patient to drink plenty of fluids today. We will repeat labs again tomorrow and watch that for the time being. If the numbers fail to come down, may conside r Nephrology consult.
[2017-09-16] MEDS: Levothyroxine Sodium 25 MCG TAB PO SCH (05:49)
[2017-09-16 06:26] LABS: Anion Gap 9 mmol/L (10-20); BUN (Urea Nitrogen) 35 mg/dL (9.8-20.1); Calc. Creatinine Clearance 83 mL/min (70-130); Calcium 7.6 mg/dL (7.8-10.44); Carbon Dioxide 22 mmol/L (23-31); Chloride 98 mmol/L (98-107); Estimated GFR-MDRD 58
[2017-09-16] MEDS: Aspirin 325 MG TAB PO SCH (09:16)
[2017-09-16] MEDS: Famotidine 20 MG TAB PO SCH (09:16)
[2017-09-16] MEDS: Rifaximin 550 MG TAB PO SCH (09:16)
[2017-09-16] MEDS: Atorvastatin Calcium 20 MG TAB PO SCH (09:16)
[2017-09-16] MEDS: metFORMIN 500 MG TAB PO SCH (09:17)
[2017-09-16] MEDS: Ursodiol 300 MG CAP PO SCH (09:17)
--- NOTE | 2017-09-16 11:41 | PRG ---
DATE OF SERVICE: 09/16/2017 SUBJECTIVE: Ms. Alana Hamilton is a 72-year-old female who had a gastric bypass surgery a few days ago. She is doing well from a cardiac standpoint. She has no chest pain, no palpitation, no dyspnea. She is tolerating diet. She does have liver cirrhosis and is being seen by Dr. Rene Evans. Her BUN and creatinine are slightly high over the weekend and was kept, because of the above reasons. Her diet is being withheld. She drinks plenty of fluids. She now offers no complain ts. PHYSICAL EXAMINATION: VITAL SIGNS: Afebrile, pulse is 79, blood pressure 137/62. CARDIOVASCULAR: Lungs within normal limits. ABDOMEN: Soft to palpate. No organomegaly. No tenderness. No masses. LABORATORY DATA: Shows a drop in serum creatinine level back to normal at 0.95, BUN is slightly high at 35. Her sodium is still low at 125 and chloride is normal at 98. Her blood sugar is 123. RECOMMENDATION: I encouraged the patient to drink plenty of free water and hopefully her BUN should come down back to baseline. From a GI standpoint, no more further recommendations.
[2017-09-16] MEDS: Insulin Regular 300 UNITS/3 ML VIAL SC PRN (12:29)
[2017-09-16 12:38] VITALS: TEMP 98.3
[2017-09-16 13:08] VITALS: BP 144/73
--- NOTE | 2017-09-17 14:42 | DIS ---
REASON FOR ADMISSION: Coronary artery bypass surgery. CLINICAL RESUME: The patient is a 72-year-old female found to have left main and severe 3-vessel cor onary artery disease with preserved left ventricular function following cardiac catheterization perfo rmed for an abnormal stress test. She was referred for coronary artery bypass surgery and on 017 underwent coronary artery bypass grafting x2 with left internal mammary artery to LAD and reverse d greater saphenous vein to OM. The operation was performed off pump. See operative report for laurie salgado. Her postoperative course was essentially unremarkable. She was discharged in stable condition on 09/16/2017. Follow up will be arranged in my office in 2 weeks or sooner p.r.n. Activity light with restrictions on driving and heavy lifting at this time. DIET: 1800 calorie ADA. DISCHARGE MEDICATIONS: She is to resume her complete home regimen without change. NEW MEDICATION: Coated aspirin 325 mg daily and Tramadol 50 mg q.6h. p.r.n.
== END 2017-09-16 14:15 | disposition home or self-care (01) | DRG 235 ==
LOC: SURG A 08:05 → CCU 12:20 → 2NO 09-13 14:06
PROVIDERS: ADMIT Thoracic Surgery (Cardiothoracic Vascular Surgery); ATTEND Thoracic Surgery (Cardiothoracic Vascular Surgery)
PROC: 021 Heart and Great Vessels, Bypass (ICD-10-PCS; principal; 2017-09-10)
PROC: 06BP3ZZ Excision of Right Saphenous Vein, Percutaneous Approach (ICD-10-PCS; 2017-09-10)
PROC: 30233K1 Transfusion of Nonautologous Frozen Plasma into Peripheral Vein, Percutaneous Approach (ICD-10-PCS; 2017-09-10)
PROC: 30233R1 Transfusion of Nonautologous Platelets into Peripheral Vein, Percutaneous Approach (ICD-10-PCS; 2017-09-10)
DX: I25.10 Atherosclerotic heart disease of native coronary artery without angina pectoris (principal); G93.40 Encephalopathy, unspecified; K76.7 Hepatorenal syndrome; K83.0 Cholangitis; Z68.41 Body mass index [BMI] 40.0-44.9, adult; K76.6 Portal hypertension; D69.59 Other secondary thrombocytopenia; E87.70 Fluid overload, unspecified; E66.01 Morbid (severe) obesity due to excess calories; K74.5 Biliary cirrhosis, unspecified; I10 Essential (primary) hypertension; E78.5 Hyperlipidemia, unspecified; Z98.84 Bariatric surgery status; Z88.5 Allergy status to narcotic agent; Z83.3 Family history of diabetes mellitus; Z82.49 Family history of ischemic heart disease and other diseases of the circulatory system; Z80.9 Family history of malignant neoplasm, unspecified; E11.9 Type 2 diabetes mellitus without complications
CPT/HCPCS: 36415; 36416; 36430; 71010; 71020; 80048; 80053; 80076; 82805; 85025; 85610; 85730; 86850; 86900; 86901; 93005; 93010; 93798; 94002; 94150; A4216; C1769; J1265; J1642; J1644; J1815; J1885; J1940; J2001; J2250; J2704; J2720; J3010; J3370; J3480; J7050; P9035; P9045; P9059; S0017; S0028

== ENCOUNTER 2017-09-25 09:10 | Inpatient (IN) | payer MEDICARE, MEDICAID ==
[2017-09-25 10:19] LABS: #Eosinphils 0.1 thou/uL (0.0-0.7); #Lymphocytes 0.9 thou/uL (1.20-3.40); #Monocytes 0.9 thou/uL (0.11-0.59); #Neutrophils 4.8 thou/uL (1.40-6.50); %Basophils 0.6 % (0.0-1.0); %Eosinophils 1.3 % (0.0-10.0); %Lymphocytes 12.7 % (21.0-51.0); Hematocrit 32.3 % (36.0-47.0); Mean Platelet Volume 7.7 fL (7.4-10.4); Red Blood Cell (RBC) Count 3.47 mill/uL (4.20-5.40); White Blood Cell (WBC) Count 6.7 thou/uL (4.8-10.8)
[2017-09-25 10:37] LABS: Lactic Acid - Sepsis 1.5 mmol/L (0.5-2.2)
[2017-09-25] MEDS ORDERED: Aspirin 325 MG TAB ONE (10:38)
[2017-09-25 10:42] LABS: ALT (SGPT) 18 U/L (8-55); AST (SGOT) 41 U/L (5-34); Alkaline Phosphatase 196 U/L (40-150); Anion Gap 9 mmol/L (10-20); BUN (Urea Nitrogen) 22 mg/dL (9.8-20.1); Bilirubin, Total 1.7 mg/dL (0.2-1.2); Calc. Creatinine Clearance 0 mL/min (70-130); Calcium 7.9 mg/dL (7.8-10.44); Carbon Dioxide 22 mmol/L (23-31); Chloride 91 mmol/L (98-107); Estimated GFR-MDRD 60; Globulin 3.7 g/dL (2.4-3.5)
[2017-09-25 10:46] LABS: Troponin I 0.017 ng/mL (< 0.028)
[2017-09-25] MEDS ORDERED: ISOVUE-370 76%-LOCM 1 ML ONE (11:48)
[2017-09-25 11:57] LABS: Bilirubin Small (Negative); Blood, Urine Negative (Negative); Glucose, Urine (Dipstick) Negative (Negative); Ketone, Urine Negative (Negative); Nitrite Negative (Negative); Protein, Urine (Dipstick) 30 mg/dL (Neg-Trace)
[2017-09-25 11:58] LABS: Bacteria/HPF None Seen HPF (None Seen); Hyaline Casts/LPF 4-6 HYALINE CAST LPF (0-3 Hyaline)
[2017-09-25] MEDS ORDERED: Furosemide 40 MG/4 ML VIAL ONE (12:06)
[2017-09-25] MEDS ORDERED: Furosemide 20 MG/2 ML VIAL ONE (12:06)
[2017-09-25 12:08] LABS: Renal Epithelial 0-3 HPF (0-3); Transitional Epithelial 0-3 HPF (0-3)
[2017-09-25 12:09] LABS: Yeast-All Forms None Seen HPF (None Seen)
--- NOTE | 2017-09-25 13:15 | CT ---
CT PULMONARY ANGIOGRAM WITH IV CONTRAST AND 3D POSTPROCESSING: Date: 09/25/17 HISTORY: Dyspnea. Recent CABG on 09/10/17. FINDINGS: There is good contrast opacification of the pulmonary arterial vasculature without filling defects to suggest pulmonary embolism. The thoracic aorta is well opacified without aneurysm or dissection. No filling defects are seen in the well opacified pulmonary vasculature to suggest pulmonary embolism. There are moderate size bilateral pleural effusions with adjacent infiltrates/atelectatic changes. A pericardial effusion is present. No pneumothoraces are seen. There are changes of median sternotomy. Degenerative changes are present in the spine. There is suggestion of a left adrenal mass which would be better evaluated with dedicated CT scan of the abdomen. IMPRESSION: 1. No CT evidence of pulmonary embolism. 2. Pericardial effusion. 3. Bilateral pleural effusions. POS: C
[2017-09-25 14:41] LABS: Anion Gap 10 mmol/L (10-20); BUN (Urea Nitrogen) 23 mg/dL (9.8-20.1); Calc. Creatinine Clearance 0 mL/min (70-130); Carbon Dioxide 21 mmol/L (23-31); Chloride 89 mmol/L (98-107); Estimated GFR-MDRD 60
[2017-09-25 14:43] LABS: Troponin I 0.023 ng/mL (< 0.028)
[2017-09-25 16:36] LABS: Troponin I 0.026 ng/mL (< 0.028)
[2017-09-25] MEDS ORDERED: Ondansetron ODT 4 MG TAB SL PRN (18:44)
[2017-09-25] MEDS ORDERED: Ondansetron HCl/PF 4 MG/2 ML Vial IVP PRN (18:44)
[2017-09-25] MEDS ORDERED: Dextrose 5% in Water 1,000 ML IV PRN (19:45)
[2017-09-25] MEDS ORDERED: Dextrose 50% Abboject 50 ML SYRINGE SLOW IVP PRN (19:45)
[2017-09-25] MEDS ORDERED: hydrALAZINE 20 MG/ML VIAL SLOW IVP PRN (19:45)
[2017-09-25] MEDS ORDERED: Furosemide 40 MG/4 ML VIAL SLOW IVP SCH (20:15)
[2017-09-25 20:28] LABS: Anion Gap 10 mmol/L (10-20); BUN (Urea Nitrogen) 24 mg/dL (9.8-20.1); Calc. Creatinine Clearance 0 mL/min (70-130); Calcium 7.8 mg/dL (7.8-10.44); Carbon Dioxide 22 mmol/L (23-31); Chloride 92 mmol/L (98-107); Estimated GFR-MDRD 55
[2017-09-25 20:35] LABS: Troponin I 0.032 ng/mL (< 0.028)
--- NOTE | 2017-09-25 20:41 | CON ---
DATE OF CONSULTATION: 09/25/2017 REASON FOR CONSULTATION: Pericardial effusion, hyponatremia, shortness of breath, recent bypass surg chalo. HISTORY OF PRESENT ILLNESS: Ms. Hamilton is a very pleasant patient of Dr. Perez. The patient underw ent coronary artery bypass grafting here recently done by Dr. Wade. The patient underwent coronary artery bypass grafting on 09/10 with internal mammary to the LAD and a vein graft to the marginal br anch up to the obtuse marginal branch. Patient was sent to [facility]. She said she has been doing o edmundo there, but did not have much energy or appetite. She feels short of breath with exertion and has not had much appetite. She feels lightheaded when she gets up. Serum sodium level was drawn and wa s very low at 116. She has been sent here for further evaluation. MEDICATIONS AT DISCHARGE: Aspirin and tramadol if needed. OTHER MEDICATIONS: 1. Metformin. 2. Levothyroxine. 3. Actigall 4. Lactulose. 5. Lisinopril 2.5 mg daily. 6. Atorvastatin 20 mg a day. There is no mention of a diuretic. PAST MEDICAL HISTORY: As mentioned, recent bypass surgery. REVIEW OF SYSTEMS: Constitutional: Positive for lack of energy and lack of appetite. Vision: No changes. Hearing: N o changes. Pulmonary: Positive for shortness of breath with exertion. Gastrointestinal: No nausea , vomiting, diarrhea, but she has got no appetite. Skin: No rashes. Neurologic: No unilateral wea kness or numbness. Psychiatric: No unusual depression or anxiety. PHYSICAL EXAMINATION: GENERAL: This is a pleasant elderly woman resting comfortably in no distress. VITAL SIGNS: Her blood pressure is 115/52, pulse is 92 regular. HEENT: Eyes, sclerae nonicteric. Mouth, mucous membranes moist. NECK: Supple, no lymphadenopathy. LUNGS: Clear, no wheezing, rales or rhonchi. CARDIAC: Normal S1, normal S2. I do not hear a murmur, rub or gallop. ABDOMEN: Obese, nontender, no hepatosplenomegaly. EXTREMITIES: Moderate peripheral edema. SKIN: Cool, but not cold. LABORATORY: EKG sinus rhythm, relatively low voltage in the limb leads. PERTINENT LABORATORIES: Sodium is 116, 128 at the time of discharge. Echocardiogram was done, eject ion fraction is normal. There is a moderate pericardial effusion with no evidence of tamponade. ASSESSMENT: 1. Recent bypass surgery. 2. Moderate pericardial effusion that did not appear to be tamponade. 3. Hyponatremia. PLAN: 1. I will need to hold diuretics. 2. Free water intake. 3. Hold lisinopril, it is relatively low blood pressure at this time. Dr. Perez will reevaluate e patient tomorrow.
--- NOTE | 2017-09-25 20:53 | HP ---
CHIEF COMPLAINT: Dizziness and shortness of breath. HISTORY OF PRESENT ILLNESS: This is a 72-year-old pleasant lady who had a CABG in our hospital 09/10 and was sent home and went and saw her medical doctor who sent her to the rehab about 5-6 days back. The patient was doing a little better at rehab, but then she became more and more short of jamaal ath over the last 4 or 5 days and became lightheaded on and off. They did check lab work in the reha b and found her sodium to be 118 and hence she was sent to our hospital for further evaluation and tr eatment. A CT scan was done in the emergency room which did not show PE, but showed pericardial effu annette, bilateral pleural effusion. Also, the sodium was 118. The patient also had a BNP of 432. Nancy leigh has been admitted for further evaluation and treatment of that. Denies any fever, chills, nause a, vomiting, diarrhea or dysuria. The patient says that her appetite has been poor too. PAST MEDICAL HISTORY: Significant for coronary artery disease, status post CABG, hypothyroidism, [facility] biliary cirrhosis, diabetes mellitus type 2, hypertension, history of congestive heart failure i n the past and hyperlipidemia. PAST SURGICAL HISTORY: Gallbladder surgery and CABG. ALLERGIES: TYLENOL, CHOCOLATE and HYDROCODONE. MEDICATIONS: Please see MAR. FAMILY HISTORY: Negative for diabetes and hypertension. SOCIAL HISTORY: Does not smoke, drink or do any recreational drugs. REVIEW OF SYSTEMS: Significant for shortness of breath, dizziness. There is no fever, no chills, no headache, no appetite, no latencies. No cough, no chest pain, diarrhea, dysuria, or polyuria. No m derrek or mood changes. No neck pain. PHYSICAL EXAMINATION: VITAL SIGNS: Blood pressure is 140/100, pulse is 96, afebrile, satting 94% on room air. GENERAL: Patient is lying in bed right now in no apparent distress. HEENT: Atraumatic and normocephalic. Pupils equally round, react to light. Extraocular movements i ntact. Mucous membranes moist. NECK: No JVD. LUNGS: Chest bibasilar rales heard, a midline scar seen. HEART: S1, S2 normal. No murmurs or gallops. ABDOMEN: Soft, obese. EXTREMITIES: No cyanosis or clubbing. Right side has +3 edema. Left side is bandaged at the site o f surgery present. NEUROLOGIC: Alert, awake, oriented. No cranial deficits. No sensorimotor deficits. LABORATORY DATA: CT as mentioned above, no PE, pericardial effusion, bilateral pleural effusion. WB C count is 6.7, hemoglobin is 10. UA shows proteinuria 4-6 wbcs. Serum osmolality is 261. BNP is 4 32. Troponin is 0.017, potassium is 4.4. Sodium is 118. Creatinine 0.9, albumin is 2.3. ASSESSMENT AND PLAN: 1. Hyponatremia. We will check her thyroid level. We will check TSH. Consult Nephrology and do ur ine osmolality. 2. Congestive heart failure and aggressive shortness of breath, we will do IV Lasix and echocardiogr am. 3. Pericardial effusion. We will do echocardiogram. Follow Cardiology consult. 4. Moderate protein malnutrition. We will encourage p.o. intake. 5. Anemia. We will monitor H&H this hospital stay. 6. Thrombocytopenia. We will monitor that this hospital stay. 7. Diabetes mellitus. We will do insulin sliding scale. 8. Hyperlipidemia, stable. 9. Coronary artery disease, status post coronary artery bypass graft. Follow Cardiology plan. 10. Sequential compressive devices for deep venous thrombosis prophylaxis. I will work with consult ants and further caring for the patient.
--- NOTE | 2017-09-25 21:46 | CON ---
DATE OF CONSULTATION: 09/25/2017 REASON FOR CONSULTATION: Hyponatremia. HISTORY OF PRESENT ILLNESS: This is a 72-year-old female with a history of recent CABG, presented to the hospital for shortness of breath started a couple of days ago. The patient was noted to have a low sodium and was given Lasix with sodium and decreasing down to 119. The patient denies no headache, numbness, tingling or weakness. Denies any nausea, vomiting, or chest pain. PAST MEDICAL HISTORY: Significant for CABG, primary biliary cirrhosis, lipid disorder, hypertension, spinal stenosis, hypothyroidism, reflux, appendectomy, C -section. HOME MEDICATIONS: List reviewed. ALLERGIES: Reviewed. REVIEW OF SYSTEMS: Fifteen point review of systems was performed and negative except positives noted above. GENERAL: Weakness- HEAD: Headache- NECK: No swelling or lumps. NOSE: No epistaxis or discharge. EYES: No diplopia or pain. RESPIRATORY: Dyspnea- CARDIOVASCULAR: Chest pain- GASTROINTESTINAL: Nausea- /[employer]: Hematuria- MUSCULOSKELETAL: No joint pain. NEUROPSYCHIATIC SYSTEMS: No suicidal ideation. No ideation. SKIN: Denies any rash or ulcer. CONSTITUTIONAL: No fever or chills. PHYSICAL EXAMINATION: GENERAL: Patient is awake, alert. VITAL SIGNS: Afebrile, pulse 75, breathing at 16, blood pressure was 127/60. GENERAL APPEARANCE AND MENTAL STATUS: Fair. HEAD/NECK: Normocephalic, atraumatic. EYES: EOMI. No deformity. EARS: Clear. No ulcers. NOSE: Intact. No lesions. MOUTH: Clear. No discharge. THROAT: Clear. No exudate. LUNGS: Clear. No crackles. CARDIAC: S1, S2. No rub. ABDOMEN: Benign. BS+. GENITALIA/RECTUM: Bull absent. BACK/EXTREMITIES: Edema 0+ Ulcer- NEUROLOGICAL: Alert and motor intact. SKIN: Rash- Bruise- LYMPHATICS: Edema- Ulcer- LABORATORY DATA: Sodium 116, potassium 4.3, creatinine 0.9. ASSESSMENT AND RECOMMENDATIONS: 1. Hyponatremia, most likely because of syndrome of inappropriate antidiuretic hormone secretion as well as excessive fluid intake. I would recommend fluid restriction. Avoid normal saline. 2. Anemia, stable. 3. Metabolic acidosis, stable. No indication for hypertonic saline. We will recheck sodium again in a few hours. [facility]
[2017-09-25 22:13] VITALS: BMI 46.4
[2017-09-26] MEDS ORDERED: Digoxin 0.5 MG/2 ML AMP ONE (05:35)
[2017-09-26 05:50] LABS: #Basophils 0.1 thou/uL (0.0-0.2); #Eosinphils 0.1 thou/uL (0.0-0.7); #Lymphocytes 1.1 thou/uL (1.20-3.40); #Monocytes 0.9 thou/uL (0.11-0.59); #Neutrophils 4.8 thou/uL (1.40-6.50); %Basophils 0.7 % (0.0-1.0); %Lymphocytes 15.6 % (21.0-51.0); %Monocytes 12.5 % (0.0-10.0); Hematocrit 35.5 % (36.0-47.0); Mean Platelet Volume 7.7 fL (7.4-10.4); Red Blood Cell (RBC) Count 3.79 mill/uL (4.20-5.40); White Blood Cell (WBC) Count 6.9 thou/uL (4.8-10.8)
[2017-09-26] MEDS ORDERED: Furosemide 40 MG/4 ML VIAL SLOW IVP SCH (06:00)
[2017-09-26 06:10] LABS: Anion Gap 14 mmol/L (10-20); BUN (Urea Nitrogen) 25 mg/dL (9.8-20.1); Calc. Creatinine Clearance 79 mL/min (70-130); Calcium 8.4 mg/dL (7.8-10.44); Carbon Dioxide 20 mmol/L (23-31); Chloride 91 mmol/L (98-107); Estimated GFR-MDRD 52
[2017-09-26 06:15] LABS: Troponin I 0.024 ng/mL (< 0.028)
[2017-09-26] MEDS ORDERED: Sodium Chloride 0.9% 1,000 ML IV SCH (06:15)
[2017-09-26] MEDS: Levothyroxine Sodium 25 MCG TAB PO SCH (06:29)
[2017-09-26] MEDS: traMADol HCl 50 MG TAB PO PRN (08:56)
--- NOTE | 2017-09-26 12:38 | EKG ---
Test Reason : STAT Blood Pressure : / mmHG Vent. Rate : 151 BPM Atrial Rate : 052 BPM P-R Int : 000 ms QRS Dur : 076 ms QT Int : 288 ms P-R-T Axes : 000 061 022 degrees QTc Int : 456 ms Supraventricular tachycardia Abnormal ECG Confirmed by KARINE PALM ([id number]) on 09/26/2017 12:38:31 PM Referred By: JOSE G Confirmed By:KARINE PALM
--- NOTE | 2017-09-26 13:13 | EKG ---
Test Reason : Blood Pressure : / mmHG Vent. Rate : 133 BPM Atrial Rate : 293 BPM P-R Int : 000 ms QRS Dur : 070 ms QT Int : 290 ms P-R-T Axes : 000 068 021 degrees QTc Int : 431 ms Atrial flutter with variable A-V block Nonspecific ST abnormality Abnormal ECG Confirmed by KARINE PALM ([id number]) on 09/26/2017 1:12:32 PM Referred By: SHANDA Confirmed By:KARINE PALM
[2017-09-26 13:32] LABS: Anion Gap 11 mmol/L (10-20); BUN (Urea Nitrogen) 28 mg/dL (9.8-20.1); Calc. Creatinine Clearance 74 mL/min (70-130); Carbon Dioxide 24 mmol/L (23-31); Chloride 92 mmol/L (98-107); Estimated GFR-MDRD 48
[2017-09-26] MEDS: Furosemide 40 MG/4 ML VIAL SLOW IVP SCH (14:06)
[2017-09-26] MEDS: Atorvastatin Calcium 20 MG TAB PO SCH (14:07)
[2017-09-26] MEDS: Aspirin 325 MG TAB PO SCH (14:07)
[2017-09-26] MEDS: Lisinopril 2.5 MG TAB PO SCH (14:07)
--- NOTE | 2017-09-26 14:12 | PRG ---
DATE OF SERVICE: 09/26/2017 SUBJECTIVE: This is a 72-year-old female being seen for hyponatremia. The patient denies any nausea , vomiting or chest pain. OBJECTIVE: GENERAL: Patient is awake and alert. VITAL SIGNS: Afebrile, pulse 85, breathing at 16 and blood pressure 102/70. HEAD/NECK: Normocephalic. Atraumatic. EYES: EOMI. No deformity. EARS: Clear. No ulcers. NOSE: Intact. No lesions. MOUTH: Clear. No discharge. THROAT: Clear. No exudate. LUNGS: Clear. No crackles. CARDIAC: S1, S2. No rub. ABDOMEN: Benign. BS+. GENITALIA/RECTUM: Bull absent. BACK/EXTREMITIES: Edema 0+. Ulcer-. NEUROLOGICAL: Alert and motor intact. SKIN: Rash-. Bruise-. LYMPHATICS: Edema-. Ulcer-. LABORATORY DATA: Showed a hemoglobin of 12.1. Sodium of 122. ASSESSMENT AND RECOMMENDATIONS: 1. Acute kidney injury with chronic kidney disease, stable. 2. Hyponatremia, multifactorial, most likely because of volume overload. We will follow sodium ever y 4 hours. 3. Metabolic acidosis, stable. No urgent indication for hypertonic saline or vaptan therapy.
--- NOTE | 2017-09-26 14:23 | PDOC.PN ---
- Subjective Encounter Start Date: 09/26/17 Encounter Start Time: 14:21 Patient seen and examined. No new complaints. No overnight events - Objective MAR Reviewed: Yes Vital Signs & Weight: Vital Signs (12 hours) Temp Pulse Resp BP BP BP Pulse Ox 09/26/17 14:07 96 102/70 09/26/17 10:48 97.8 F 136 H 20 102/70 94 L 09/26/17 08:00 98.2 F 85 17 155/60 H 94 L 09/26/17 06:29 96 09/26/17 04:00 97.8 F 96 18 119/58 L 92 L Weight Weight 228 lb 14.4 oz I&O: 09/25/17 09/26/17 09/27/17 06:59 06:59 06:59 Intake Total 370 Output Total 950 Balance -580 Result Diagrams: 09/26/17 05:02 09/26/17 12:47 Additional Labs: Accuchecks 09/26/17 09/25/17 10:51 22:20 POC Glucose 103 118 H Phys Exam - Physical Examination Constitutional: NAD HEENT: PERRLA Neck: no nodes bibasilar rales Cardiovascular: RRR, no significant murmur Gastrointestinal: soft, non-tender Musculoskeletal: pulses present Neurological: moves all 4 limbs Psychiatric: A&O x 3 Dx/Plan (1) Acute on chronic diastolic CHF (congestive heart failure) Code(s): I50.33 - ACUTE ON CHRONIC DIASTOLIC (CONGESTIVE) HEART FAILURE Status : Acute Comment: ef- 55% (2) Hyponatremia Code(s): E87.1 - HYPO-OSMOLALITY AND HYPONATREMIA Status: Acute (3) Pericardial effusion Code(s): I31.3 - PERICARDIAL EFFUSION (NONINFLAMMATORY) Status: Acute (4) Pleural effusion Code(s): J90 - PLEURAL EFFUSION, NOT ELSEWHERE CLASSIFIED Status: Acute (5) Diabetes Code(s): E11.9 - TYPE 2 DIABETES MELLITUS WITHOUT COMPLICATIONS Status: Acute (6) HTN (hypertension) Code(s): I10 - ESSENTIAL (PRIMARY) HYPERTENSION Status: Acute (7) Hyperlipidemia Code(s): E78.5 - HYPERLIPIDEMIA, UNSPECIFIED Status: Acute (8) Primary biliary cirrhosis Code(s): K74.3 - PRIMARY BILIARY CIRRHOSIS Status: Acute - Plan * cont current care * f/u dr andre and dr olmos rec's
--- NOTE | 2017-09-26 17:15 | PDOC.CTH ---
Cardiology Progress Note - Subjective Since starting diuresis her breathing is much better. still unable to lay flat. Her leg edema is significantly worse as compared to when she was discharged home just recently. She denies any chest pain, tightness, pressure. - Objective Vital Signs Temp Pulse Resp BP BP BP Pulse Ox 09/26/17 15:05 97.6 F 95 20 136/54 L 94 L 09/26/17 14:07 96 102/70 09/26/17 10:48 97.8 F 136 H 20 102/70 94 L 09/26/17 08:00 98.2 F 85 17 155/60 H 94 L 09/26/17 06:29 96 Weight 228 lb 14.4 oz 09/25/17 09/26/17 09/27/17 06:59 06:59 06:59 Intake Total 370 Output Total 950 Balance -580 - Physical Examination General/Neuro: alert & oriented x3, NAD Neck: no JVD present Lungs: unlabored respirations Heart: RRR Abdomen: NT/ND Extremities: + edema B (2+) - Telemetry Telemetry Rhythm: NSR - Labs Result Diagrams: 09/26/17 05:02 09/26/17 12:47 Troponin/CKMB CK-MB (CK-2) 3.5 ng/mL (0-6.6) 09/25/17 10:16 Troponin I 0.024 ng/mL (< 0.028) 09/26/17 05:02 - Assessment/Plan 1. Hyponatremia 2. Fluid overload 3. Primary Billiary Cirrhosis. 4. Pericardial effusion, moderate no tamponade. 5. Multivessel CAD s/p CABG 6. Mild . 7. Acute on chronic diastolic heart failure. PLAN: - Continue gentle diuresis. already feeling better from this standpoint. - Sodium already improving with diuresis and fluid restriction. - Will repeat echocardiogram tomorrow to assess extent of effusion. If worse may need drainage. - Consider getting GI involved due to her PBC and her increasing creatinine concern for Hepatorenal syndrome.
[2017-09-26] MEDS ORDERED: Clopidogrel Bisulfate 75 MG TAB ONE (17:36)
[2017-09-26 19:39] LABS: Anion Gap 9 mmol/L (10-20); BUN (Urea Nitrogen) 31 mg/dL (9.8-20.1); Calc. Creatinine Clearance 70 mL/min (70-130); Carbon Dioxide 24 mmol/L (23-31); Chloride 93 mmol/L (98-107); Estimated GFR-MDRD 45
[2017-09-27] MEDS: traMADol HCl 50 MG TAB PO PRN (00:52)
[2017-09-27 05:52] LABS: Anion Gap 12 mmol/L (10-20); BUN (Urea Nitrogen) 32 mg/dL (9.8-20.1); Calc. Creatinine Clearance 69 mL/min (70-130); Calcium 7.9 mg/dL (7.8-10.44); Carbon Dioxide 20 mmol/L (23-31); Chloride 93 mmol/L (98-107); Estimated GFR-MDRD 44
[2017-09-27] MEDS: Furosemide 40 MG/4 ML VIAL SLOW IVP SCH ×2 (05:57→13:59)
[2017-09-27] MEDS: Levothyroxine Sodium 25 MCG TAB PO SCH (05:57)
[2017-09-27] MEDS: Aspirin 325 MG TAB PO SCH (08:47)
[2017-09-27] MEDS: Lisinopril 2.5 MG TAB PO SCH (08:48)
[2017-09-27] MEDS: Atorvastatin Calcium 20 MG TAB PO SCH (08:48)
[2017-09-27] MEDS ORDERED: Preparation H HC 1% Cream 26 GM TUBE TOP PRN (10:31)
--- NOTE | 2017-09-27 10:52 | PRG ---
DATE OF SERVICE: 09/27/2017 SUBJECTIVE: This 72-year-old lady being seen for hyponatremia. The patient denies any nausea, vomit ing, or chest pain. PHYSICAL EXAMINATION: GENERAL: Patient is awake, alert. VITAL SIGNS: Afebrile, pulse 92, breathing at 16, blood pressure 125/60. OBJECTIVE: See above. Awake, alert, in no acute distress. GENERAL APPEARANCE AND MENTAL STATUS: Fair. HEAD/NECK: Normocephalic. Atraumatic. EYES: EOMI. No deformity. EARS: Clear. No ulcers. NOSE: Intact. No lesions. MOUTH: Clear. No discharge. THROAT: Clear. No exudate. LUNGS: Clear. No crackles. CARDIAC: S1, S2. No rub. ABDOMEN: Benign. BS+. GENITALIA/RECTUM: Bull absent. BACK/EXTREMITIES: Edema 0+ Ulcer- NEUROLOGICAL: Alert and motor intact. SKIN: Rash- Bruise- LYMPHATICS: Edema- Ulcer- LABORATORY DATA: Sodium 121. IMPRESSION AND PLAN: 1. Hyponatremia, multifactorial. Continue Lasix for volume overload. 2. Metabolic acidosis, stable. 3. Chronic kidney disease stage 3, stable. No indication for dialysis. I would recommend 800 mL fluid restriction. I will recheck sodium again at 2 p.m.
--- NOTE | 2017-09-27 13:16 | PDOC.PN ---
- Subjective Encounter Start Date: 09/27/17 Encounter Start Time: 13:15 Patient seen and examined. No new complaints. No overnight events sob better - Objective MAR Reviewed: Yes Vital Signs & Weight: Vital Signs (12 hours) Temp Pulse Resp BP BP Pulse Ox 09/27/17 11:25 97.8 F 90 14 133/60 95 09/27/17 08:48 92 09/27/17 08:42 97.9 F 92 18 125/60 94 L 09/27/17 08:00 97.9 F 92 18 94 L 09/27/17 04:10 98.1 F 88 24 H 136/97 H 92 L Weight Weight 228 lb 1.6 oz I&O: 09/26/17 09/27/17 09/28/17 06:59 06:59 06:59 Intake Total 370 1080 Output Total 950 1250 Balance -580 -170 Result Diagrams: 09/26/17 05:02 09/27/17 04:48 Additional Labs: Accuchecks 09/27/17 09/27/17 09/26/17 12:08 05:49 20:55 POC Glucose 157 H 159 H 136 H 09/26/17 16:41 POC Glucose 125 H Phys Exam - Physical Examination Constitutional: NAD HEENT: PERRLA Neck: no JVD Respiratory: no wheezing bibasilar rales Cardiovascular: no significant murmur Gastrointestinal: non-tender Musculoskeletal: pulses present Neurological: moves all 4 limbs Psychiatric: A&O x 3 Dx/Plan (1) Acute on chronic diastolic CHF (congestive heart failure) Code(s): I50.33 - ACUTE ON CHRONIC DIASTOLIC (CONGESTIVE) HEART FAILURE Status : Acute Comment: ef- 55% (2) Hyponatremia Code(s): E87.1 - HYPO-OSMOLALITY AND HYPONATREMIA Status: Acute (3) Pericardial effusion Code(s): I31.3 - PERICARDIAL EFFUSION (NONINFLAMMATORY) Status: Acute (4) Pleural effusion Code(s): J90 - PLEURAL EFFUSION, NOT ELSEWHERE CLASSIFIED Status: Acute (5) Diabetes Code(s): E11.9 - TYPE 2 DIABETES MELLITUS WITHOUT COMPLICATIONS Status: Acute (6) HTN (hypertension) Code(s): I10 - ESSENTIAL (PRIMARY) HYPERTENSION Status: Acute (7) Hyperlipidemia Code(s): E78.5 - HYPERLIPIDEMIA, UNSPECIFIED Status: Acute (8) Primary biliary cirrhosis Code(s): K74.3 - PRIMARY BILIARY CIRRHOSIS Status: Acute - Plan * doing well * f/u card and renal rec's
[2017-09-27 16:03] LABS: BUN (Urea Nitrogen) 34 mg/dL (9.8-20.1); Calc. Creatinine Clearance 68 mL/min (70-130); Calcium 7.8 mg/dL (7.8-10.44); Estimated GFR-MDRD 44
[2017-09-27 16:12] LABS: Anion Gap 13 mmol/L (10-20); Carbon Dioxide 20 mmol/L (23-31); Chloride 94 mmol/L (98-107)
--- NOTE | 2017-09-27 19:07 | PDOC.CTH ---
Cardiology Progress Note - Subjective Still volume up, mild diuresis since yesterday. Slight improvement in her symptoms. Denies any increase in SOB. - Objective Vital Signs Temp Pulse Pulse Pulse Resp BP BP 09/27/17 16:00 98.2 F 90 16 09/27/17 13:44 89 97 112/53 L 170/72 H 09/27/17 11:25 97.8 F 90 14 09/27/17 08:48 92 09/27/17 08:42 97.9 F 92 18 09/27/17 08:00 97.9 F 92 18 BP BP Pulse Ox Pulse Ox 09/27/17 16:00 125/56 L 97 09/27/17 13:44 95 09/27/17 11:25 133/60 95 09/27/17 08:48 09/27/17 08:42 125/60 94 L 09/27/17 08:00 94 L Weight 228 lb 1.6 oz 09/26/17 09/27/17 09/28/17 06:59 06:59 06:59 Intake Total 370 1080 320 Output Total 950 1250 550 Balance -580 -170 -230 - Physical Examination General/Neuro: alert & oriented x3, NAD Neck: other: (JVP up to 12 cm H2O) Lungs: unlabored respirations Heart: RRR Abdomen: NT/ND Extremities: + edema B (3+) - Telemetry Telemetry Rhythm: NSR - Labs Result Diagrams: 09/26/17 05:02 09/27/17 15:24 Troponin/CKMB CK-MB (CK-2) 3.5 ng/mL (0-6.6) 09/25/17 10:16 Troponin I 0.024 ng/mL (< 0.028) 09/26/17 05:02 - Assessment/Plan 1. Hyponatremia 2. Fluid overload 3. Primary Billiary Cirrhosis. 4. Pericardial effusion, moderate no tamponade. 5. Multivessel CAD s/p CABG 6. Mild . 7. Acute on chronic diastolic heart failure. PLAN: - Continue gentle diuresis. - Sodium continues to improve. - Will repeat echocardiogram to assess extent of effusion. If worse may need drainage.
[2017-09-28] MEDS: traMADol HCl 50 MG TAB PO PRN (00:03)
[2017-09-28 05:48] LABS: Anion Gap 10 mmol/L (10-20); BUN (Urea Nitrogen) 33 mg/dL (9.8-20.1); Calc. Creatinine Clearance 83 mL/min (70-130); Calcium 7.9 mg/dL (7.8-10.44); Carbon Dioxide 25 mmol/L (23-31); Chloride 94 mmol/L (98-107); Estimated GFR-MDRD 49
[2017-09-28] MEDS: Levothyroxine Sodium 25 MCG TAB PO SCH (05:52)
[2017-09-28] MEDS: Furosemide 40 MG/4 ML VIAL SLOW IVP SCH ×2 (05:52→13:50)
[2017-09-28] MEDS: Lisinopril 2.5 MG TAB PO SCH (09:30)
[2017-09-28] MEDS: Aspirin 325 MG TAB PO SCH (09:30)
[2017-09-28] MEDS: Atorvastatin Calcium 20 MG TAB PO SCH (09:30)
--- NOTE | 2017-09-28 10:11 | PRG ---
DATE OF SERVICE: 09/28/2017 SUBJECTIVE: This is a 72-year-old female being seen for hyponatremia. The patient denies any nausea , vomiting and chest pain. PHYSICAL EXAMINATION: GENERAL: Patient is awake, alert. VITAL SIGNS: Afebrile, pulse 75, respirations 16, blood pressure 137/60. HEAD/NECK: Normocephalic. Atraumatic. EYES: EOMI. No deformity. EARS: Clear. No ulcers. NOSE: Intact. No lesions. MOUTH: Clear. No discharge. THROAT: Clear. No exudate. LUNGS: Clear. No crackles. CARDIAC: S1, S2. No rub. ABDOMEN: Benign. BS+. GENITALIA/RECTUM: Bull absent. BACK/EXTREMITIES: Edema 4+. NEUROLOGICAL: Alert and motor intact. SKIN: Rash- Bruise- LYMPHATICS: Edema- Ulcer- LABORATORY DATA: Hemoglobin 12.1, creatinine 1.0. ASSESSMENT AND RECOMMENDATIONS: 1. Acute kidney injury with chronic kidney disease, stable. 2. Hyponatremia, improving. 3. Metabolic acidosis, stable. No indication for dialysis. Continue gentle diuresis.
--- NOTE | 2017-09-28 13:25 | PDOC.CTH ---
Cardiology Progress Note - Subjective She is doing better. Her edema is unchanged but her breathing is better. - Objective Vital Signs Temp Pulse Resp BP Pulse Ox 09/28/17 11:30 97.9 F 88 27 H 112/55 L 96 09/28/17 09:30 95 09/28/17 08:00 97.7 F 95 17 137/60 95 09/28/17 03:55 97.8 F 86 25 H 144/60 H 94 L Weight 250 lb 14.4 oz 09/27/17 09/28/17 09/29/17 06:59 06:59 06:59 Intake Total 1080 680 Output Total 1250 1350 Balance -170 -670 - Physical Examination General/Neuro: alert & oriented x3, NAD Neck: no JVD present Lungs: CTA, unlabored respirations Heart: RRR Abdomen: NT/ND Extremities: other: (no edema.) - Telemetry Telemetry Rhythm: NSR - Labs Result Diagrams: 09/26/17 05:02 09/28/17 04:46 Troponin/CKMB CK-MB (CK-2) 3.5 ng/mL (0-6.6) 09/25/17 10:16 Troponin I 0.024 ng/mL (< 0.028) 09/26/17 05:02 - Assessment/Plan 1. Hyponatremia 2. Fluid overload 3. Primary Billiary Cirrhosis. 4. Pericardial effusion, moderate no tamponade. 5. Multivessel CAD s/p CABG 6. Mild . 7. Acute on chronic diastolic heart failure. PLAN: - Continue gentle diuresis. - Sodium continues to improve. - Repeat echocardiogram pending.
--- NOTE | 2017-09-28 13:54 | PDOC.PN ---
- Subjective Encounter Start Date: 09/28/17 Encounter Start Time: 13:54 Patient seen and examined. No new complaints. No overnight events - Objective MAR Reviewed: Yes Vital Signs & Weight: Vital Signs (12 hours) Temp Pulse Resp BP Pulse Ox 09/28/17 11:30 97.9 F 88 27 H 112/55 L 96 09/28/17 09:30 95 09/28/17 08:00 97.7 F 95 17 137/60 95 09/28/17 03:55 97.8 F 86 25 H 144/60 H 94 L Weight Weight 250 lb 14.4 oz I&O: 09/27/17 09/28/17 09/29/17 06:59 06:59 06:59 Intake Total 1080 680 Output Total 1250 1350 Balance -170 -670 Result Diagrams: 09/26/17 05:02 09/28/17 04:46 Additional Labs: Accuchecks 09/28/17 09/28/17 09/27/17 11:53 05:52 20:27 POC Glucose 166 H 135 H 192 H 09/27/17 17:13 POC Glucose 169 H Phys Exam - Physical Examination Constitutional: NAD HEENT: PERRLA, moist MMs Neck: no JVD Respiratory: no wheezing Cardiovascular: no significant murmur Gastrointestinal: non-tender Musculoskeletal: edema present Neurological: moves all 4 limbs Psychiatric: A&O x 3 Dx/Plan (1) Acute on chronic diastolic CHF (congestive heart failure) Code(s): I50.33 - ACUTE ON CHRONIC DIASTOLIC (CONGESTIVE) HEART FAILURE Status : Acute Comment: ef- 55% (2) Hyponatremia Code(s): E87.1 - HYPO-OSMOLALITY AND HYPONATREMIA Status: Acute (3) Pericardial effusion Code(s): I31.3 - PERICARDIAL EFFUSION (NONINFLAMMATORY) Status: Acute (4) Pleural effusion Code(s): J90 - PLEURAL EFFUSION, NOT ELSEWHERE CLASSIFIED Status: Acute (5) Diabetes Code(s): E11.9 - TYPE 2 DIABETES MELLITUS WITHOUT COMPLICATIONS Status: Acute (6) HTN (hypertension) Code(s): I10 - ESSENTIAL (PRIMARY) HYPERTENSION Status: Acute (7) Hyperlipidemia Code(s): E78.5 - HYPERLIPIDEMIA, UNSPECIFIED Status: Acute (8) Primary biliary cirrhosis Code(s): K74.3 - PRIMARY BILIARY CIRRHOSIS Status: Acute - Plan * - Continue gentle diuresis. - Sodium continues to improve. - Repeat echocardiogram pending.
[2017-09-28] MEDS: HumaLOG 300 UNITS/3 ML VIAL SC PRN (17:54)
[2017-09-29] MEDS: traMADol HCl 50 MG TAB PO PRN ×2 (00:10→21:39)
[2017-09-29] MEDS: Levothyroxine Sodium 25 MCG TAB PO SCH (06:01)
[2017-09-29] MEDS: Furosemide 40 MG/4 ML VIAL SLOW IVP SCH ×2 (06:01→13:26)
[2017-09-29] MEDS: Atorvastatin Calcium 20 MG TAB PO SCH (09:06)
[2017-09-29] MEDS: Aspirin 325 MG TAB PO SCH (09:06)
[2017-09-29] MEDS: Lisinopril 2.5 MG TAB PO SCH (09:06)
[2017-09-29 10:06] LABS: Anion Gap 11 mmol/L (10-20); BUN (Urea Nitrogen) 34 mg/dL (9.8-20.1); Calc. Creatinine Clearance 74 mL/min (70-130); Calcium 7.8 mg/dL (7.8-10.44); Carbon Dioxide 24 mmol/L (23-31); Chloride 93 mmol/L (98-107); Estimated GFR-MDRD 45
--- NOTE | 2017-09-29 12:59 | PDOC.PN ---
- Subjective Encounter Start Date: 09/29/17 Encounter Start Time: 12:59 Patient seen and examined. No new complaints. No overnight events - Objective MAR Reviewed: Yes Vital Signs & Weight: Vital Signs (12 hours) Temp Pulse Resp BP BP BP Pulse Ox 09/29/17 10:50 98.9 F 87 18 125/58 L 95 09/29/17 09:06 91 107/72 09/29/17 07:40 98.2 F 91 18 107/72 96 09/29/17 07:20 98.2 F 91 18 96 09/29/17 04:00 98.4 F 88 19 124/58 L 93 L Weight Weight 243 lb 8 oz I&O: 09/28/17 09/29/17 09/30/17 06:59 06:59 06:59 Intake Total 680 614 Output Total 1350 1400 Balance -670 -786 Result Diagrams: 09/26/17 05:02 09/29/17 09:19 Additional Labs: Accuchecks 09/29/17 09/28/17 09/28/17 05:55 20:23 16:45 POC Glucose 129 H 184 H 188 H 09/28/17 11:53 POC Glucose 166 H Phys Exam - Physical Examination Constitutional: NAD HEENT: PERRLA Neck: no JVD Respiratory: no wheezing Cardiovascular: no significant murmur Gastrointestinal: non-tender Musculoskeletal: pulses present Neurological: moves all 4 limbs Psychiatric: A&O x 3 Dx/Plan (1) Acute on chronic diastolic CHF (congestive heart failure) Code(s): I50.33 - ACUTE ON CHRONIC DIASTOLIC (CONGESTIVE) HEART FAILURE Status : Acute Comment: ef- 55% (2) Hyponatremia Code(s): E87.1 - HYPO-OSMOLALITY AND HYPONATREMIA Status: Acute (3) Pericardial effusion Code(s): I31.3 - PERICARDIAL EFFUSION (NONINFLAMMATORY) Status: Acute (4) Pleural effusion Code(s): J90 - PLEURAL EFFUSION, NOT ELSEWHERE CLASSIFIED Status: Acute (5) Diabetes Code(s): E11.9 - TYPE 2 DIABETES MELLITUS WITHOUT COMPLICATIONS Status: Acute (6) HTN (hypertension) Code(s): I10 - ESSENTIAL (PRIMARY) HYPERTENSION Status: Acute (7) Hyperlipidemia Code(s): E78.5 - HYPERLIPIDEMIA, UNSPECIFIED Status: Acute (8) Primary biliary cirrhosis Code(s): K74.3 - PRIMARY BILIARY CIRRHOSIS Status: Acute - Plan * sodium improving * f/u card and renal plan
[2017-09-29] MEDS: HumaLOG 300 UNITS/3 ML VIAL SC PRN (13:27)
--- NOTE | 2017-09-29 21:22 | PRG ---
DATE OF SERVICE: 09/29/2017 SUBJECTIVE: Patient was seen and examined at bedside and overnight events noted. Patient denies any shortness of breath or chest pain or palpitation. No history of nausea or vomiting or diarrhea or f ever or chills or cramps. OBJECTIVE: GENERAL: This is well built female in no apparent distress. VITAL SIGNS: Temperature 97.9, pulse 80, respiratory 20, blood pressure 123/53. HEENT: Atraumatic, normocephalic. Oral mucosa is moist. NECK: Supple. CARDIOVASCULAR: S1, S2 heard. Rate and rhythm regular. RESPIRATORY: Clear to auscultation. GASTROINTESTINAL: Abdomen is soft. MUSCULOSKELETAL: No tenderness. No edema. DERMATOLOGIC: No skin rash. NEUROLOGIC: Alert and awake and oriented x3. No focal neurologic deficits. Moving all the extremit ies. PSYCHIATRIC: Mood and affect normal. LABORATORY DATA: Sodium 124, BUN 34, creatinine was 1.1. ASSESSMENT AND PLAN: 1. Acute kidney injury on chronic kidney disease, stable. 2. Hyponatremia, most likely from fluid overload. 3. Fluid overload. 4. Edema. 5. Hypertension. 6. Acidosis. 7. Continue on Lasix as tolerated and monitor one more day, seems like she has chronic hyponatremia. .
[2017-09-30] MEDS: Furosemide 40 MG/4 ML VIAL SLOW IVP SCH (06:08)
[2017-09-30] MEDS: Levothyroxine Sodium 25 MCG TAB PO SCH (06:09)
[2017-09-30 06:21] LABS: Anion Gap 10 mmol/L (10-20); BUN (Urea Nitrogen) 33 mg/dL (9.8-20.1); Calc. Creatinine Clearance 81 mL/min (70-130); Calcium 7.8 mg/dL (7.8-10.44); Carbon Dioxide 26 mmol/L (23-31); Chloride 97 mmol/L (98-107); Estimated GFR-MDRD 51
[2017-09-30] MEDS: Lisinopril 2.5 MG TAB PO SCH (09:17)
[2017-09-30] MEDS: Aspirin 325 MG TAB PO SCH (09:17)
[2017-09-30] MEDS: Atorvastatin Calcium 20 MG TAB PO SCH (09:17)
--- NOTE | 2017-09-30 11:53 | PDOC.PN ---
- Subjective Encounter Start Date: 09/30/17 Encounter Start Time: 11:52 Patient seen and examined. No new complaints. No overnight events - Objective MAR Reviewed: Yes Vital Signs & Weight: Vital Signs (12 hours) Temp Pulse Resp BP BP Pulse Ox 09/30/17 09:17 94 132/58 L 09/30/17 07:25 98.6 F 94 18 132/58 L 95 09/30/17 04:00 97.4 F L 88 18 117/56 L 94 L Weight Weight 238 lb 3.2 oz I&O: 09/29/17 09/30/17 10/01/17 06:59 06:59 06:59 Intake Total 614 674 Output Total 1400 1100 Balance -786 -426 Result Diagrams: 09/26/17 05:02 09/30/17 05:31 Additional Labs: Accuchecks 09/30/17 09/29/17 09/29/17 06:18 20:20 17:39 POC Glucose 125 H 150 H 144 H 09/29/17 10:50 POC Glucose 233 H Phys Exam - Physical Examination Constitutional: NAD HEENT: moist MMs Neck: no nodes Respiratory: no rales Cardiovascular: no significant murmur Gastrointestinal: non-tender Musculoskeletal: pulses present Neurological: normal sensation, moves all 4 limbs Psychiatric: A&O x 3 Dx/Plan (1) Acute on chronic diastolic CHF (congestive heart failure) Code(s): I50.33 - ACUTE ON CHRONIC DIASTOLIC (CONGESTIVE) HEART FAILURE Status : Acute Comment: ef- 55% (2) Hyponatremia Code(s): E87.1 - HYPO-OSMOLALITY AND HYPONATREMIA Status: Acute (3) Pericardial effusion Code(s): I31.3 - PERICARDIAL EFFUSION (NONINFLAMMATORY) Status: Acute (4) Pleural effusion Code(s): J90 - PLEURAL EFFUSION, NOT ELSEWHERE CLASSIFIED Status: Acute (5) Diabetes Code(s): E11.9 - TYPE 2 DIABETES MELLITUS WITHOUT COMPLICATIONS Status: Acute (6) HTN (hypertension) Code(s): I10 - ESSENTIAL (PRIMARY) HYPERTENSION Status: Acute (7) Hyperlipidemia Code(s): E78.5 - HYPERLIPIDEMIA, UNSPECIFIED Status: Acute (8) Primary biliary cirrhosis Code(s): K74.3 - PRIMARY BILIARY CIRRHOSIS Status: Acute - Plan * doing well * [facility] * out pt f/u with renal and card
[2017-09-30 12:31] VITALS: TEMP 98.9
[2017-09-30] MEDS ORDERED: Furosemide 40 MG TAB PO SCH (14:00)
[2017-09-30 14:37] VITALS: BP 155/68
--- NOTE | 2017-09-30 19:58 | PRG ---
DATE OF SERVICE: 10/01/2017 SUBJECTIVE: Patient was seen and examined at bedside and overnight events noted. Patient denies any shortness of breath or chest pain or palpitation. No history of nausea or vomiting or diarrhea or f ever or chills or cramps. OBJECTIVE: GENERAL: This is a well-built female in no apparent distress. VITAL SIGNS: Temperature 98.9, pulse 95, respiratory rate 18, blood pressure 125/57. HEENT: Atraumatic, normocephalic. Oral mucosa is moist. NECK: Supple. CARDIOVASCULAR: S1, S2 heard. Rate and rhythm regular. RESPIRATORY: Clear to auscultation. GASTROINTESTINAL: Abdomen is soft. MUSCULOSKELETAL: 2+ edema. DERMATOLOGIC: No skin rash. NEUROLOGIC: Alert and awake and oriented x3. No focal neurologic deficits. Moving all the extremiti es. PSYCHIATRIC: Mood and affect normal. LABORATORY DATA: Sodium is 129, BUN 33, creatinine is 1.05. ASSESSMENT AND PLAN: 1. Acute kidney injury on chronic kidney disease. Renal function is better. 2. Hyponatremia secondary to fluid overload. Continue on Lasix, we will recommend Lasix 40 p.o. b.i .d. 3. Fluid overload. Continue on Lasix. 4. Edema. 5. Hypertension. Continue Lasix 40 p.o. b.i.d. Advised to follow up in the clinic in 1 week. Evelyn blanchard and patient understand and patient was advised to call my clinic. She will make appointment.
--- NOTE | 2017-09-30 21:29 | DIS ---
DATE OF ADMISSION: 09/25/2017 DATE OF DISCHARGE: 09/30/2017 DIAGNOSES ON DISCHARGE: 1. Acute on chronic diastolic congestive heart failure. 2. Hyponatremia secondary to fluid overload, resolved. 3. Acute kidney injury on chronic kidney disease, stable. 4. Coronary artery disease status post recent catheterization, 09/10/2017. 5. Hypertension, stable. 6. Diabetes, stable. 7. Primary biliary cirrhosis, stable. 8. Pericardial effusion, moderate. No need for medical management. 9. Pleural effusion, stable. CONSULTANTS: Renal and Cardiology. DISCHARGE MEDICATIONS: Patient's discharge medications are the same as admit medications plus Lasix 40 mg p.o. b.i.d. BRIEF HOSPITAL COURSE: A 72-year-old pleasant lady came into the hospital with dizziness and shortne ss of breath. Please refer to my H&P for further details on initial evaluation. CT scan of the ches t did not show any PE. Sodium was 118. Renal was consulted, they gently diuresis the patient's sodi um improved with this hospital stay. The patient also had an echocardiogram, which showed further ev aluation of pericardial effusion which showed no evidence of tamponade and showed pericardial effusio n was moderate in nature. Cardiology was consulted. They wanted to medically manage it and follow h er. They agreed with the diuresis for the acute on chronic diastolic congestive heart failure. Nell ent improved with this treatment. She diuresed well this hospital stay, sodium come up. She did wel l with physical therapy right now, she is medically stable to be sent back to the [facility] for cardiac r ehabilitation. She is asked to come back to the emergency room in case symptoms recur. She is asked to follow up with Nephrology and Cardiology in a week. Total time for this discharge took 35 minutes.
--- NOTE | 2017-10-06 12:52 | EKG ---
Test Reason : SOB Blood Pressure : / mmHG Vent. Rate : 094 BPM Atrial Rate : 094 BPM P-R Int : 144 ms QRS Dur : 072 ms QT Int : 358 ms P-R-T Axes : 027 028 029 degrees QTc Int : 447 ms Normal sinus rhythm Cannot rule out Anterior infarct , age undetermined Nospecific ST-T segment abnormalities Abnormal ECG Confirmed by ENRIKE FREEMAN ([id number]), advertising editor RHODA BELLA ([id number]) on 10/06/2017 12:51:55 PM Referred By: Confirmed By:ENRIKE FREEMAN
== END 2017-09-30 14:25 | DRG 291 ==
LOC: ERS 09:10 → 2NO 13:51 → ERS 17:30
PROVIDERS: ADMIT Internal Medicine; ATTEND Internal Medicine
DX: I13.0 Hypertensive heart and chronic kidney disease with heart failure and stage 1 through stage 4 chronic kidney disease, or unspecified chronic kidney disease (principal); I50.33 Acute on chronic diastolic (congestive) heart failure; N17.9 Acute kidney failure, unspecified; E44.0 Moderate protein-calorie malnutrition; I30.9 Acute pericarditis, unspecified; D69.6 Thrombocytopenia, unspecified; E87.2 Acidosis; E87.1 Hypo-osmolality and hyponatremia; E11.22 Type 2 diabetes mellitus with diabetic chronic kidney disease; N18.3 Chronic kidney disease, stage 3 (moderate); Z68.42 Body mass index [BMI] 45.0-49.9, adult; I25.10 Atherosclerotic heart disease of native coronary artery without angina pectoris; K74.3 Primary biliary cirrhosis; Z95.1 Presence of aortocoronary bypass graft; E03.9 Hypothyroidism, unspecified; E78.5 Hyperlipidemia, unspecified; D64.9 Anemia, unspecified
CPT/HCPCS: 36415; 36416; 71275; 80048; 81003; 81015; 82140; 82553; 83605; 83880; 83930; 83935; 84100; 84300; 84443; 84484; 85025; 93005; 93010; 93306; 93798; 94760; 96374; J1160; J1940

== ENCOUNTER 2017-10-15 11:30 | Inpatient (IN) | payer MEDICARE, MEDICAID ==
[2017-10-15 12:22] LABS: #Eosinphils 0.1 thou/uL (0.0-0.7); #Lymphocytes 1.1 thou/uL (1.20-3.40); #Monocytes 0.5 thou/uL (0.11-0.59); #Neutrophils 4.9 thou/uL (1.40-6.50); %Basophils 0.5 % (0.0-1.0); %Eosinophils 1.3 % (0.0-10.0); %Lymphocytes 16.5 % (21.0-51.0); %Monocytes 8.2 % (0.0-10.0); %Neutrophils 73.6 % (42.0-75.0); Hemoglobin 10.8 g/dL (12.0-16.0); Mean Corpuscular HGB CONC 32.9 g/dL (32.0-36.0); Mean Corpuscular Hemoglobin 31.4 pg (27.0-31.0); Mean Corpuscular Volume 95.5 fl (81.0-99.0); Mean Platelet Volume 9.5 fL (7.4-10.4); Platelet Count 104 thou/uL (130-400); RBC Distribution Width 14.5 % (11.5-14.5); Red Blood Cell (RBC) Count 3.45 mill/uL (4.20-5.40); White Blood Cell (WBC) Count 6.6 thou/uL (4.8-10.8)
[2017-10-15 12:40] LABS: ALT (SGPT) 99 U/L (8-55); AST (SGOT) 224 U/L (5-34); Albumin 2.2 g/dL (3.4-4.8); Alkaline Phosphatase 211 U/L (40-150); Anion Gap 17 mmol/L (10-20); BUN (Urea Nitrogen) 58 mg/dL (9.8-20.1); Bilirubin, Total 1.6 mg/dL (0.2-1.2); Calc. Creatinine Clearance 0 mL/min (70-130); Calcium 8.9 mg/dL (7.8-10.44); Carbon Dioxide 25 mmol/L (23-31); Chloride 97 mmol/L (98-107); Estimated GFR-MDRD 13; Globulin 4.4 g/dL (2.4-3.5); Glucose 142 mg/dL (83-110); Lipase 45 U/L (8-78); Potassium 3.9 mmol/L (3.5-5.1); Protein, Total 6.6 g/dL (6.0-8.3); Sodium 135 mmol/L (136-145)
[2017-10-15 12:44] LABS: Troponin I 0.118 ng/mL (< 0.028)
[2017-10-15 12:45] LABS: CKMB 22.6 ng/mL (0-6.6)
--- NOTE | 2017-10-15 14:13 | RAD ---
PORTABLE CHEST: Date: 10-15-17 Provided Clinical History: Epigastric pain. FINDINGS: Comparison 09-12-17. Cardiac and mediastinal silhouette is unchanged in appearance. Median sternotomy changes are again se en. Evaluation is limited by patient body habitus. Pleural and left parenchymal opacity at the left l kathryn base cannot be excluded. The right lung is free of significant opacity. Atherosclerosis is re-dem onstrated. IMPRESSION: Left basilar pleural and/or parenchymal opacity. Follow up is recommended. POS: [facility]
[2017-10-15 14:25] LABS: Bilirubin Negative (Negative); Blood, Urine Large (Negative); Clarity CLOUDY (Clear); Glucose, Urine (Dipstick) Negative (Negative); Leukocyte Moderate (Negative); Nitrite Negative (Negative); Protein, Urine (Dipstick) 30 mg/dL (Neg-Trace); Specific Gravity, Urine 1.019 (1.002-1.036)
[2017-10-15 14:33] LABS: Bacteria/HPF 4+ HPF (None Seen); Pathc Cast-AUWi Flag 2.16 (0-2.49); Squamous Epithelial 0-3 HPF (0-3); WBC/HPF 21-50 HPF (0-3)
[2017-10-15 14:35] LABS: Hyaline Casts/LPF 0-3 HYALINE CAST LPF (0-3 Hyaline)
[2017-10-15 15:34] LABS: Troponin I 0.146 ng/mL (< 0.028)
[2017-10-15 15:38] LABS: CKMB 24.1 ng/mL (0-6.6)
[2017-10-15] MEDS ORDERED: Zolpidem Tartrate 5 MG TAB PO PRN (16:52)
--- NOTE | 2017-10-15 17:09 | PDOC.PN ---
- Subjective Encounter Start Date: 10/15/17 Encounter Start Time: 17:06 - Objective Resuscitation Status: Resuscitation Status FULL:Full Resuscitation MAR Reviewed: Yes Result Diagrams: 10/15/17 12:03 10/15/17 12:03 Radiology Reviewed by me: Yes (cxr-R pleural effusion) EKG Reviewed by me: Yes (RSR nonspecific ST-T abn) Phys Exam - Physical Examination Constitutional: NAD Neck: no JVD Respiratory: clear to auscultation bilateral Cardiovascular: RRR, no significant murmur Gastrointestinal: soft, non-tender, positive bowel sounds Musculoskeletal: edema present Dx/Plan (1) Acute renal failure Status: Acute Qualifiers: Acute renal failure type: unspecified Qualified Code(s): N17.9 - Acute kidney failure, unspecified (2) NSTEMI (non-ST elevated myocardial infarction) Code(s): I21.4 - NON-ST ELEVATION (NSTEMI) MYOCARDIAL INFARCTION Status: Acute (3) CAD (coronary artery disease) Code(s): I25.10 - ATHSCL HEART DISEASE OF [place] CORONARY ARTERY W/O ANG PCTRS Status: Chronic Qualifiers: Coronary Disease-Associated Artery/Lesion type: [place] artery [place] vs. transplanted heart: [place] heart Associated angina: without angina Qualified Code(s): I25.10 - Atherosclerotic heart disease of [place] coronary artery without angina pectoris (4) Diabetes Code(s): E11.9 - TYPE 2 DIABETES MELLITUS WITHOUT COMPLICATIONS Status: Acute Qualifiers: Diabetes mellitus type: type 2 Diabetes mellitus complication status: with kidney complications (5) HTN (hypertension) Code(s): I10 - ESSENTIAL (PRIMARY) HYPERTENSION Status: Acute Qualifiers: Hypertension type: essential hypertension Qualified Code(s): I10 - Essential (primary) hypertension (6) Pericardial effusion Code(s): I31.3 - PERICARDIAL EFFUSION (NONINFLAMMATORY) Status: Acute (7) Pleural effusion Code(s): J90 - PLEURAL EFFUSION, NOT ELSEWHERE CLASSIFIED Status: Chronic (8) Primary biliary cirrhosis Code(s): K74.3 - PRIMARY BILIARY CIRRHOSIS Status: Acute - Plan DVT proph w/heparin hold lasix, iv ns 100 ml/hr -: accu /ss -: heparin 5000 sc tid * .
[2017-10-15] MEDS ORDERED: HumaLOG 300 UNITS/3 ML VIAL SC PRN (17:20)
[2017-10-15] MEDS ORDERED: Dextrose 50% Abboject 50 ML SYRINGE SLOW IVP PRN (17:20)
[2017-10-15] MEDS ORDERED: Dextrose 5% in Water 1,000 ML IV PRN (17:20)
[2017-10-15 19:12] LABS: Troponin I 0.156 ng/mL (< 0.028)
[2017-10-15 20:16] VITALS: BMI 38.7
[2017-10-15] MEDS: Sodium Chloride 0.9% 1,000 ML IV SCH (20:40)
[2017-10-15] MEDS: Heparin 5,000 UNITS/ML VIAL SC SCH (20:40)
[2017-10-15 22:20] LABS: Troponin I 0.146 ng/mL (< 0.028)
--- NOTE | 2017-10-16 00:16 | HP ---
PRIMARY CARE PROVIDER: Dr. Santacruz. HISTORY OF PRESENT ILLNESS: The patient developed nausea and vomiting today, some abdominal pain, no diarrhea. She states she is constipated, it is worse with her daily dose of lactulose. She states she has had dizziness and near syncope trying to arise. She noticed decreased urine output, which is dark. PAST MEDICAL HISTORY: Pertinent for coronary artery bypass graft in 09/10/2017; primary biliary cirr hosis; hypothyroidism; diabetes mellitus, type 2; hypertension; history of heart failure; and dyslipi demia. PAST SURGICAL HISTORY: Gallbladder surgery and coronary artery bypass graft. ALLERGIES: TYLENOL and HYDROCODONE. MEDICATIONS: Aspirin 325 mg a day, Lipitor 20 mg a day, Lasix 40 mg twice a day, levothyroxine 25 mc g a day, lisinopril 2.5 mg a day, lactulose 20 grams twice a day, Actigall 300 mg 3 times a day, tram adol 50 mg p.o. q.6 hours, metformin 250 mg a day, Pepcid 20 mg twice a daily, potassium chloride 10 mEq a day, Zofran oral dissolving tablet 4 mg every 6 hours p.r.n. SOCIAL HISTORY: No tobacco, alcohol, or recreational drugs. CODE STATUS: FULL CODE status. Next of kin not identified on this study. FAMILY HISTORY: Negative for diabetes, hypertension or other inherited diseases. REVIEW OF SYSTEMS: As mentioned earlier. General: She has had dizziness with near syncope arising. No fevers, sweats or chills. Eyes: No double vision, blurred vision, flashing lights. Ears, nose and throat: No ear pain or drainage. No nasal bleeding. No trouble swallowing. Cardiac: No ches t pain, orthopnea or paroxysmal nocturnal dyspnea. Respirations: No cough, wheezing or asthma. Gas trointestinal: See present illness. Genitourinary: Decreased urine output and dark urine. Musculo skeletal: Swelling in her legs, chronic pain in her knees and ankles. Neurologic: No strokes, seiz ures or focal weakness. Psychiatric: No anxiety or depression. Skin: Easy bruising. Heme/Lymph: No tender or swollen lymph nodes in axilla, inguinal or cervical area. PHYSICAL EXAMINATION: GENERAL: She is an alert, pleasant, cooperative lady, in no distress at the present time. VITAL SIGNS: Blood pressure 110/54, pulse 89, respirations 16, temperature 98.5, O2 sat 95% to 96% o n room air. HEENT: Examination of her head, eyes, ears, nose and throat reveal pupils are equal, round, and reac tive to light. Extraocular movements are intact. Sclerae white. Tympanic membranes clear. Nose cl ear. Oral mucous membranes are dry. NECK: No jugular venous distention, adenopathy or thyromegaly. CHEST: Dull in the left base. No focal findings or rales or wheezes heard. HEART: Regular rate and rhythm. No appreciated murmurs or gallops. ABDOMEN: Soft, bowel sounds normal. No hepatosplenomegaly, no mass, no rebound. EXTREMITIES: Reveal 2+ edema with no cyanosis or clubbing. PULSES: Carotid, radial, femoral pulses intact. Pedal pulses diminished by edema. SKIN: Reveals bruises on her forearms. No rash. HEME/LYMPH: No tender or swollen lymph nodes in axilla, inguinal or cervical area. NEUROLOGICAL: Cranial nerves II-XII are intact. Deep tendon reflexes symmetric. Moves all extremit ies. X-RAY FINDINGS: EKG: Regular sinus rhythm, nonspecific T-wave changes, reviewed by me. Chest x-ray : No cardiomegaly, no infiltrate, evidence of effusion in the left lower lobe, reviewed by me. LABORATORY DATA: White count 6.6, hemoglobin 10.8, platelet count of 104,000. CK-MB 23 and 24, trop onin 0.12 and 0.15, bilirubin 1.6, AST 224, ALT 99, creatinine 3.44 with previous normal of 1, BUN 58 . Sodium 135. ADMITTING DIAGNOSES: 1. Acute renal failure. 2. Non-ST elevation myocardial infarction. 3. Primary biliary cirrhosis. 4. Coronary artery disease, post coronary artery bypass graft. 5. Pericardial effusion. 6. Diabetes mellitus, type 2. 7. Hypertension. PLAN: 1. Hold diuretics and lactulose. Start normal saline at 100 mL an hour. Serial basic metabolic pro file. 2. Continue serial enzymes. I am reluctant to start Lovenox in a patient with creatinine of 2.43. We will simply start subcutaneous heparin 3 times a day per deep venous thrombosis protocol since she has no chest pain or shortness of breath. 3. Selected home medicines. 4. Hyperglycemia protocol with Accu-Cheks a.c. and at bedtime.
[2017-10-16] MEDS: Levothyroxine Sodium 25 MCG TAB PO SCH (05:36)
[2017-10-16] MEDS: Sodium Chloride 0.9% 1,000 ML IV SCH ×2 (05:37→14:55)
[2017-10-16 05:57] LABS: #Eosinphils 0.1 thou/uL (0.0-0.7); #Lymphocytes 1.1 thou/uL (1.20-3.40); #Monocytes 0.4 thou/uL (0.11-0.59); #Neutrophils 2.7 thou/uL (1.40-6.50); %Basophils 0.5 % (0.0-1.0); %Eosinophils 2.6 % (0.0-10.0); %Lymphocytes 25.7 % (21.0-51.0); %Monocytes 9.2 % (0.0-10.0); %Neutrophils 61.9 % (42.0-75.0); Hemoglobin 9.3 g/dL (12.0-16.0); Mean Corpuscular HGB CONC 32.4 g/dL (32.0-36.0); Mean Corpuscular Volume 95.8 fl (81.0-99.0); Mean Platelet Volume 9.1 fL (7.4-10.4); Platelet Count 81 thou/uL (130-400); RBC Distribution Width 14.6 % (11.5-14.5); Red Blood Cell (RBC) Count 3.01 mill/uL (4.20-5.40); White Blood Cell (WBC) Count 4.4 thou/uL (4.8-10.8)
--- NOTE | 2017-10-16 06:08 | CON ---
DATE OF CONSULTATION: 10/15/2017 CONSULTING PHYSICIAN: Dr. Shearer. REASON FOR CONSULTATION: Acute kidney injury. REASON FOR ADMISSION: Abnormal labs, nausea and vomiting. HISTORY OF PRESENT ILLNESS: This is a 72-year-old female with history of coronary artery disease, hy pothyroidism, chronic kidney disease, hyponatremia, hypertension, cirrhosis, who came to the hospital with not feeling well, nausea, vomiting, and was found to have elevated creatinine. Nephrology was consulted for acute kidney injury. The patient is feeling slightly better today. She was on Lasix a nd she was on fluid restriction and she was having nausea, vomiting, and also diarrhea with lactulose for cirrhosis and she was seen in the hospital because of worsening labs. No chest pain, palpitatio n, no fever or chills reported. PAST MEDICAL HISTORY: Positive for primary biliary cirrhosis, coronary artery disease, hypothyroidis m, type 2 diabetes, hypertension, congestive heart failure, hyperlipidemia. PAST SURGICAL HISTORY: Cholecystectomy and CABG. HOME MEDICATIONS: Tramadol, metformin, Zestril, levothyroxine, Lasix, aspirin, and Paxil. ALLERGIES: TYLENOL, CHOCOLATE and HYDROCODONE. SOCIAL HISTORY: No smoking, alcohol or illicit drug abuse. FAMILY HISTORY: No history of any kidney disease. REVIEW OF SYSTEMS: The following complete review of systems was negative, unless otherwise mentioned in the HPI or below: Constitutional: Weight loss or gain, ability to conduct usual activities. Skin: Rash, itching. Eyes: Double vision, pain. ENT/Mouth: Nose bleeding, neck stiffness, pain, tenderness. Cardiovascular: Palpitations, dyspnea on exertion, orthopnea. Respiratory: Shortness of breath, wheezing, cough, hemoptysis, fever or night sweats. Gastrointestinal: Poor appetite, abdominal pain, heartburn, nausea, vomiting, constipation, or diarr hea. Genitourinary: Urgency, frequency, dysuria, nocturia. Musculoskeletal: Pain, swelling. Neurologic/Psychiatric: Anxiety, depression. Allergy/Immunologic: Skin rash, bleeding tendency. PHYSICAL EXAMINATION: GENERAL: This is an obese female, in mild distress. VITAL SIGNS: Temperature 98.4, pulse 80, respiratory rate 16, blood pressure 117/47. HEENT: Atraumatic, normocephalic. Oral mucosa is dry. NECK: Supple, no masses. CARDIOVASCULAR: S1, S2 heard. Rate and rhythm regular. RESPIRATORY: Clear. GASTROINTESTINAL: Abdomen is soft, obese, distended. MUSCULOSKELETAL: 2+ edema. DERMATOLOGIC: No skin rash. NEUROLOGIC: Alert and awake. PSYCHIATRIC: Mood and affect normal. LABORATORY DATA: Hemoglobin is 10.8. Potassium is 3.9, BUN is 58, creatinine 3.4 and was 1.05 on . Sodium is 135. ASSESSMENT AND PLAN: 1. Acute kidney injury on chronic kidney disease, stage 3. Renal function seems to be secondary to hydration as tolerated . 2. History of cirrhosis. 3. Hyponatremia, better. 4. Edema, chronic. 5. Hypoalbuminemia. 6. Hypertension. 7. Anemia, rule out bleed. 8. Pyuria, rule out infection. Rule out infection, continue hydration as tolerated, consider albumin. We will follow. Avoid nephro toxins. Thank you for the consultation.
[2017-10-16 06:50] LABS: Anion Gap 12 mmol/L (10-20); BUN (Urea Nitrogen) 59 mg/dL (9.8-20.1); Calc. Creatinine Clearance 23 mL/min (70-130); Calcium 8.3 mg/dL (7.8-10.44); Carbon Dioxide 26 mmol/L (23-31); Chloride 104 mmol/L (98-107); Estimated GFR-MDRD 15; Glucose 78 mg/dL (83-110); Potassium 3.5 mmol/L (3.5-5.1); Sodium 138 mmol/L (136-145)
--- NOTE | 2017-10-16 09:09 | PDOC.PN ---
- Subjective Encounter Start Date: 10/16/17 Encounter Start Time: :09 Subjective: no sob, less dizziness - Objective MAR Reviewed: Yes Vital Signs & Weight: Vital Signs (12 hours) Temp Pulse Resp BP Pulse Ox 10/16/17 07:56 97.6 F 82 18 132/60 95 10/16/17 04:00 98.0 F 78 18 131/63 98 10/16/17 00:53 98.2 F 81 18 103/49 L 94 L I&O: 10/15/17 10/16/17 10/17/17 06:59 06:59 06:59 Intake Total 957 Output Total 500 Balance 457 Result Diagrams: 10/16/17 05:07 10/16/17 05:07 Additional Labs: Accuchecks 10/16/17 10/15/17 05:44 20:40 POC Glucose 85 133 H Phys Exam - Physical Examination Constitutional: NAD Neck: no JVD Respiratory: clear to auscultation bilateral Cardiovascular: RRR, no significant murmur Gastrointestinal: soft, positive bowel sounds Musculoskeletal: edema present Dx/Plan (1) Acute renal failure Status: Acute Qualifiers: Acute renal failure type: unspecified Qualified Code(s): N17.9 - Acute kidney failure, unspecified (2) NSTEMI (non-ST elevated myocardial infarction) Code(s): I21.4 - NON-ST ELEVATION (NSTEMI) MYOCARDIAL INFARCTION Status: Acute (3) CAD (coronary artery disease) Code(s): I25.10 - ATHSCL HEART DISEASE OF [place] CORONARY ARTERY W/O ANG PCTRS Status: Chronic Qualifiers: Coronary Disease-Associated Artery/Lesion type: [place] artery [place] vs. transplanted heart: [place] heart Associated angina: without angina Qualified Code(s): I25.10 - Atherosclerotic heart disease of [place] coronary artery without angina pectoris (4) Diabetes Code(s): E11.9 - TYPE 2 DIABETES MELLITUS WITHOUT COMPLICATIONS Status: Acute Qualifiers: Diabetes mellitus type: type 2 Diabetes mellitus complication status: with kidney complications (5) HTN (hypertension) Code(s): I10 - ESSENTIAL (PRIMARY) HYPERTENSION Status: Acute Qualifiers: Hypertension type: essential hypertension Qualified Code(s): I10 - Essential (primary) hypertension (6) Pericardial effusion Code(s): I31.3 - PERICARDIAL EFFUSION (NONINFLAMMATORY) Status: Acute (7) Pleural effusion Code(s): J90 - PLEURAL EFFUSION, NOT ELSEWHERE CLASSIFIED Status: Chronic (8) Primary biliary cirrhosis Code(s): K74.3 - PRIMARY BILIARY CIRRHOSIS Status: Acute - Plan creat decreased , cont gentle iv fluids, serial BMP -: accu/ ss/ hold metformin * .
[2017-10-16] MEDS: Heparin 5,000 UNITS/ML VIAL SC SCH ×3 (10:23→21:09)
[2017-10-16] MEDS: Aspirin 325 MG TAB PO SCH (10:23)
[2017-10-16] MEDS: Atorvastatin Calcium 20 MG TAB PO SCH (10:23)
--- NOTE | 2017-10-16 11:07 | PRG ---
DATE OF SERVICE: 10/16/2017 SUBJECTIVE: Patient was seen and examined at bedside and overnight events noted. Patient denies any shortness of breath or chest pain or palpitation. No history of nausea or vomiting or diarrhea or f ever or chills or cramps. OBJECTIVE: GENERAL: This is an elderly female in no apparent distress. VITAL SIGNS: Temperature 97.6, pulse 82, respiratory rate 18 and blood pressure 132/60. HEENT: Atraumatic and normocephalic. Oral mucosa is moist. NECK: Supple. CARDIOVASCULAR: S1 and S2 heard. Rate and rhythm regular. RESPIRATORY: Clear to auscultation. GASTROINTESTINAL: Abdomen is soft. MUSCULOSKELETAL: No tenderness. No edema. DERMATOLOGIC: No skin rash. NEUROLOGIC: Alert, awake and oriented x3. No focal neurologic deficits. Moving all the extremities . PSYCHIATRIC: Mood and affect normal. LABORATORY DATA: Potassium is 3.5, BUN is 15 and creatinine is 3.03. ASSESSMENT AND PLAN: 1. Acute kidney injury on chronic kidney disease stage 3. Renal function is slightly improving with IV hydration. Patient continues to have edema. 2. History of cirrhosis. 3. Hyponatremia, better. 4. Edema, which is chronic. We will monitor respiratory status. 5. Hypoalbuminemia secondary to cirrhosis 6. Hypertension. 7. Anemia. Renal function seems to be stable with hydration. We will monitor respiratory and fluid status close ly. We will follow.
[2017-10-16] MEDS: traMADol HCl 50 MG TAB PO PRN (21:10)
[2017-10-17] MEDS: Sodium Chloride 0.9% 1,000 ML IV SCH ×3 (00:40→21:21)
[2017-10-17] MEDS: Levothyroxine Sodium 25 MCG TAB PO SCH (05:37)
[2017-10-17 06:01] LABS: Anion Gap 11 mmol/L (10-20); BUN (Urea Nitrogen) 51 mg/dL (9.8-20.1); Calc. Creatinine Clearance 31 mL/min (70-130); Carbon Dioxide 23 mmol/L (23-31); Chloride 108 mmol/L (98-107); Estimated GFR-MDRD 21; Potassium 3.3 mmol/L (3.5-5.1); Sodium 139 mmol/L (136-145)
[2017-10-17 06:02] LABS: Calcium 8.4 mg/dL (7.8-10.44); Glucose 76 mg/dL (83-110)
--- NOTE | 2017-10-17 08:42 | PDOC.PN ---
- Subjective Encounter Start Date: 10/17/17 Encounter Start Time: 08:41 Subjective: feels better, no BM - Objective MAR Reviewed: Yes Vital Signs & Weight: Vital Signs (12 hours) Temp Pulse Resp BP Pulse Ox 10/17/17 04:00 97.9 F 91 18 123/58 L 94 L I&O: 10/16/17 10/17/17 10/18/17 06:59 06:59 06:59 Intake Total 957 2672 Output Total 500 1000 Balance 457 1602 Result Diagrams: 10/16/17 05:07 10/17/17 04:55 Additional Labs: Accuchecks 10/17/17 10/16/17 10/16/17 06:10 20:22 16:28 POC Glucose 81 98 111 H 10/16/17 12:41 POC Glucose 103 Phys Exam - Physical Examination Constitutional: NAD Neck: no JVD Respiratory: clear to auscultation bilateral Cardiovascular: RRR, no significant murmur Gastrointestinal: soft, non-tender, positive bowel sounds Musculoskeletal: edema present Dx/Plan (1) Acute renal failure Status: Acute Qualifiers: Acute renal failure type: unspecified Qualified Code(s): N17.9 - Acute kidney failure, unspecified (2) NSTEMI (non-ST elevated myocardial infarction) Code(s): I21.4 - NON-ST ELEVATION (NSTEMI) MYOCARDIAL INFARCTION Status: Resolved (3) CAD (coronary artery disease) Code(s): I25.10 - ATHSCL HEART DISEASE OF [place] CORONARY ARTERY W/O ANG PCTRS Status: Chronic Qualifiers: Coronary Disease-Associated Artery/Lesion type: [place] artery [place] vs. transplanted heart: [place] heart Associated angina: without angina Qualified Code(s): I25.10 - Atherosclerotic heart disease of [place] coronary artery without angina pectoris (4) Diabetes Code(s): E11.9 - TYPE 2 DIABETES MELLITUS WITHOUT COMPLICATIONS Status: Acute Qualifiers: Diabetes mellitus type: type 2 Diabetes mellitus complication status: with kidney complications (5) HTN (hypertension) Code(s): I10 - ESSENTIAL (PRIMARY) HYPERTENSION Status: Acute Qualifiers: Hypertension type: essential hypertension Qualified Code(s): I10 - Essential (primary) hypertension (6) Pericardial effusion Code(s): I31.3 - PERICARDIAL EFFUSION (NONINFLAMMATORY) Status: Acute (7) Pleural effusion Code(s): J90 - PLEURAL EFFUSION, NOT ELSEWHERE CLASSIFIED Status: Chronic (8) Primary biliary cirrhosis Code(s): K74.3 - PRIMARY BILIARY CIRRHOSIS Status: Acute (9) Demand ischemia Code(s): I24.8 - OTHER FORMS OF ACUTE ISCHEMIC HEART DISEASE Status: Acute - Plan cont off diuretics, creat improved, cont iv saline -: reinstitute lactulose bid -: serial BMP -: selected home meds, still off LUDY, metformin * .
[2017-10-17] MEDS: Atorvastatin Calcium 20 MG TAB PO SCH (09:26)
[2017-10-17] MEDS: Famotidine 20 MG TAB PO SCH (09:26)
[2017-10-17] MEDS: Aspirin 325 MG TAB PO SCH (09:26)
[2017-10-17] MEDS: Heparin 5,000 UNITS/ML VIAL SC SCH ×3 (09:26→21:17)
[2017-10-17] MEDS: Ondansetron HCl/PF 4 MG/2 ML Vial IVP PRN (09:32)
[2017-10-17] MEDS ORDERED: Potassium Chloride 20 MEQ TAB PO SCH (15:45)
--- NOTE | 2017-10-17 21:29 | PRG ---
DATE OF SERVICE: 10/17/2017 SUBJECTIVE: Patient was seen and examined at bedside and overnight events noted. Patient denies any shortness of breath or chest pain or palpitation. No history of nausea or vomiting or diarrhea or f ever or chills or cramps. OBJECTIVE: General: Obese female in no apparent distress. Vital Signs: Temperature 97, pulse 92, respiratory rate 20, and blood pressure 142/62. HEENT: Atraumatic, normocephalic. Oral mucosa is moist. Neck: Supple. Cardiovascular: S1 and S2 heard. Rate and rhythm regular. Respiratory: Clear to auscultation. Gastrointestinal: Abdomen is soft. Musculoskeletal: No tenderness. No edema. Dermatologic: No skin rash. Neurologic: Alert and awake and oriented X3. No focal neurologic deficits. Moving all the extremiti es. Psychiatric: Mood and affect normal. LABORATORY DATA: Potassium is 3.3, BUN is 51, creatinine is 2.2. ASSESSMENT AND PLAN: 1. Acute kidney injury on chronic kidney disease. Renal function is slowly getting better. Give hy dration and monitor respiratory status. 2. History of cirrhosis. 3. Hyperkalemia, replaced. 4. Edema. 5. Hypoalbuminemia secondary to cirrhosis. 6. Hypertension. 7. Anemia. Plan is to monitor renal function closely.
[2017-10-18] MEDS: traMADol HCl 50 MG TAB PO PRN ×2 (00:31→23:08)
[2017-10-18] MEDS: Levothyroxine Sodium 25 MCG TAB PO SCH (05:55)
[2017-10-18] MEDS: Sodium Chloride 0.9% 1,000 ML IV SCH (05:55)
[2017-10-18 05:59] LABS: Anion Gap 11 mmol/L (10-20); BUN (Urea Nitrogen) 43 mg/dL (9.8-20.1); Calc. Creatinine Clearance 38 mL/min (70-130); Calcium 8.4 mg/dL (7.8-10.44); Carbon Dioxide 22 mmol/L (23-31); Chloride 112 mmol/L (98-107); Estimated GFR-MDRD 28; Glucose 84 mg/dL (83-110); Potassium 3.7 mmol/L (3.5-5.1); Sodium 141 mmol/L (136-145)
[2017-10-18] MEDS: Aspirin 325 MG TAB PO SCH (07:44)
[2017-10-18] MEDS: Famotidine 20 MG TAB PO SCH (07:44)
[2017-10-18] MEDS: Heparin 5,000 UNITS/ML VIAL SC SCH ×3 (07:45→21:23)
[2017-10-18] MEDS: Atorvastatin Calcium 20 MG TAB PO SCH (07:45)
[2017-10-18] MEDS: Ondansetron HCl/PF 4 MG/2 ML Vial IVP PRN ×2 (07:49→22:11)
--- NOTE | 2017-10-18 10:45 | PDOC.PN ---
- Subjective Encounter Start Date: 10/18/17 Encounter Start Time: 10:43 Subjective: feels well - Objective MAR Reviewed: Yes Vital Signs & Weight: Vital Signs (12 hours) Temp Pulse Resp BP Pulse Ox 10/18/17 08:00 98.0 F 95 16 94 L 10/18/17 07:00 98.0 F 95 16 123/58 L 95 10/18/17 03:36 97.9 F 89 16 141/65 H 95 10/17/17 23:25 98.1 F 96 20 136/62 94 L I&O: 10/17/17 10/18/17 10/19/17 06:59 06:59 06:59 Intake Total 2672 960 120 Output Total 1000 Balance 1672 960 120 Result Diagrams: 10/16/17 05:07 10/18/17 05:12 Additional Labs: Accuchecks 10/18/17 10/17/17 10/17/17 05:28 19:42 16:15 POC Glucose 93 96 88 10/17/17 10/17/17 12:21 11:36 POC Glucose 92 107 Phys Exam - Physical Examination Constitutional: NAD Respiratory: clear to auscultation bilateral Cardiovascular: RRR, no significant murmur Gastrointestinal: soft, positive bowel sounds Musculoskeletal: edema present Dx/Plan (1) Acute renal failure Status: Acute Qualifiers: Acute renal failure type: unspecified Qualified Code(s): N17.9 - Acute kidney failure, unspecified (2) NSTEMI (non-ST elevated myocardial infarction) Code(s): I21.4 - NON-ST ELEVATION (NSTEMI) MYOCARDIAL INFARCTION Status: Resolved (3) CAD (coronary artery disease) Code(s): I25.10 - ATHSCL HEART DISEASE OF [place] CORONARY ARTERY W/O ANG PCTRS Status: Chronic Qualifiers: Coronary Disease-Associated Artery/Lesion type: [place] artery [place] vs. transplanted heart: [place] heart Associated angina: without angina Qualified Code(s): I25.10 - Atherosclerotic heart disease of [place] coronary artery without angina pectoris (4) Diabetes Code(s): E11.9 - TYPE 2 DIABETES MELLITUS WITHOUT COMPLICATIONS Status: Acute Qualifiers: Diabetes mellitus type: type 2 Diabetes mellitus complication status: with kidney complications (5) HTN (hypertension) Code(s): I10 - ESSENTIAL (PRIMARY) HYPERTENSION Status: Acute Qualifiers: Hypertension type: essential hypertension Qualified Code(s): I10 - Essential (primary) hypertension (6) Pericardial effusion Code(s): I31.3 - PERICARDIAL EFFUSION (NONINFLAMMATORY) Status: Acute (7) Pleural effusion Code(s): J90 - PLEURAL EFFUSION, NOT ELSEWHERE CLASSIFIED Status: Chronic (8) Primary biliary cirrhosis Code(s): K74.3 - PRIMARY BILIARY CIRRHOSIS Status: Acute (9) Demand ischemia Code(s): I24.8 - OTHER FORMS OF ACUTE ISCHEMIC HEART DISEASE Status: Acute - Plan creat < 2, 1 more day iv fluids, rpt BMP in am -: cont lactulose, asa, statin, l-thyroxine * .
--- NOTE | 2017-10-18 19:05 | PRG ---
DATE OF SERVICE: 10/18/2017 SUBJECTIVE: Patient was seen and examined at bedside and overnight events noted. Patient denies any shortness of breath or chest pain or palpitation. No history of nausea or vomiting or diarrhea or f ever or chills or cramps. OBJECTIVE: GENERAL: This is a well-built female in no apparent distress. VITAL SIGNS: Temperature 97.9, pulse 80, respiratory rate 18, blood pressure 198/56. HEENT: Atraumatic, normocephalic. Oral mucosa is moist. NECK: Supple. CARDIOVASCULAR: S1, S2 heard. Rate and rhythm regular. RESPIRATORY: Clear to auscultation. GASTROINTESTINAL: Abdomen is soft. MUSCULOSKELETAL: 2+ edema. DERMATOLOGIC: No skin rash. NEUROLOGIC: Alert and awake and oriented x3. No focal neurologic deficits. Moving all the extremiti es. PSYCHIATRIC: Mood and affect normal. LABORATORY DATA: Potassium 3.7, BUN is 43, creatinine 1.7. ASSESSMENT AND PLAN: 1. Acute kidney injury on chronic kidney disease stage 3. Renal function with much improvement. We will stop IV fluids. Seems like her edema is getting worse and monitor respiratory status 2. History of cirrhosis. 3. Hypoalbuminemia. 4. Edema. 5. Hyperkalemia. 6. Hypertension. Overall renal function is stable. We will stop IV fluids, monitor renal function. Follow up with pr imary team.
[2017-10-19] MEDS: Levothyroxine Sodium 25 MCG TAB PO SCH (06:34)
[2017-10-19 06:47] LABS: Anion Gap 15 mmol/L (10-20); BUN (Urea Nitrogen) 28 mg/dL (9.8-20.1); Calc. Creatinine Clearance 44 mL/min (70-130); Carbon Dioxide 14 mmol/L (23-31); Chloride 115 mmol/L (98-107); Estimated GFR-MDRD 33; Glucose 91 mg/dL (83-110); Potassium 4.1 mmol/L (3.5-5.1); Sodium 140 mmol/L (136-145)
[2017-10-19] MEDS ORDERED: Lisinopril 2.5 MG TAB PO SCH (09:00)
[2017-10-19] MEDS ORDERED: metFORMIN 500 MG TAB PO SCH (09:00)
[2017-10-19] MEDS: Famotidine 20 MG TAB PO SCH (10:32)
[2017-10-19] MEDS: Aspirin 325 MG TAB PO SCH (10:32)
[2017-10-19] MEDS: Atorvastatin Calcium 20 MG TAB PO SCH (10:32)
--- NOTE | 2017-10-19 11:23 | DIS ---
DATE OF ADMISSION: 10/15/2017 DATE OF DISCHARGE: 10/19/2017 PRIMARY CARE PROVIDER: Jo Santacruz M.D. DISPOSITION: Discharged back to the [facility]. FINAL DIAGNOSES: Acute renal failure, [id number] myocardial infarction, coronary artery diseas e, diabetes mellitus type 2, primary biliary cirrhosis, hypothyroidism, and hypertension. DISCHARGE MEDICATIONS: Pepcid 20 mg a day, metformin 500 mg a day, lisinopril 2.5 mg a day, levothyr oxine 25 mcg a day, Kristalose 20 grams b.i.d., Lipitor 20 mg at bedtime, Actigall 300 mg p.o. t.i.d. , aspirin 325 mg a day, Lasix 20 mg a day, nadolol 20 mg p.o. daily. ALLERGIES: ACETAMINOPHEN and HYDROCODONE. CODE STATUS: FULL. PENDING AT THE TIME OF DISCHARGE: Nothing. HOSPITAL COURSE: The patient referred to [facility] by [facility] after transfer from [facility]. Patient with some abdominal pain, nausea and vomiting. The patient was found to have a creatinine of 3.44 with previous normal of 1 and BUN of 58. She had troponins o f 0.118, 0.146, 0.156. The patient was started on gentle IV fluids because of her history of primary biliary cirrhosis. She was seen in consultation by Dr. Raven Singh, who agreed with acute kidne y failure secondary to overaggressive diuresis. The patient was on fluid restriction, lactulose, and Lasix 40 mg twice a day. Her clinical condition improved rapidly. LABORATORY DATA: Initial electrolytes; sodium 135, potassium 3.9, BUN 58, creatinine 3.43 with GFR o f 30. Liver function test; bilirubin 1.6, AST 224, ALT 99 consistent with her primary biliary cirrho sis. She was given IV fluids at 100 mL an hour, Accu-Cheks were followed. On 10/16/2017, creatinine was 3.03; on 10/17/2017, 2.24; on 10/18/2017 1.79; today 1.56. No culture or specimens were done. PHYSICAL EXAMINATION: CURRENT VITAL SIGNS: Temperature 98, pulse 90, blood pressure 125/56, respirations 16. CARDIORESPIRATORY: Exam is normal. MUSCULOSKELETAL: She has her usual 1-2+ edema. She is being transferred back to the senior care unit at [facility] for continuing PT, OT. CONSULTATION: Dr. Raven Singh. PROCEDURES: None. FOLLOWUP: Will be at [facility] and eventually with Dr. Santacruz after she leaves rehabilitation. The patient needs to have a basic metabolic profile repeated in 1 week.
[2017-10-19 11:59] VITALS: BP 152/118; TEMP 97.7
[2017-10-19] MEDS: Heparin 5,000 UNITS/ML VIAL SC SCH (13:01)
--- NOTE | 2017-10-19 13:59 | PRG ---
DATE OF SERVICE: 10/19/2017 SUBJECTIVE: Patient was seen and examined at bedside and overnight events noted. Patient denies any shortness of breath or chest pain or palpitation. No history of nausea or vomiting or diarrhea or f ever or chills or cramps. OBJECTIVE: General: This is a well-built female in no acute distress. VITAL SIGNS: Temperature 98.0, pulse 92, respiration 16, blood pressure 124/56. HEENT: Atraumatic, normocephalic. Oral mucosa is moist. NECK: Supple. CARDIOVASCULAR: S1, S2 heard. Rate and rhythm regular. RESPIRATORY: Clear to auscultation. GASTROINTESTINAL: Abdomen is soft. MUSCULOSKELETAL: No tenderness, no edema. DERMATOLOGIC: No skin rash. NEUROLOGIC: Alert and awake and oriented x3. No focal neurologic deficits. Moving all the extremit ies. PSYCHIATRIC: Mood and affect normal. LABORATORY DATA: Potassium 4.1, BUN is 28, creatinine is 1.5. ASSESSMENT AND PLAN: 1. Acute kidney injury on chronic kidney disease stage 3. Renal function much better. 2. Edema. Agree with Lasix. 3. History of cirrhosis. 4. Hypoalbuminemia. 5. Hypokalemia. 6. Hypertension, stable. 7. Follow up with the clinic in 1-2 weeks, follow up with Dr. Hernandez.
== END 2017-10-19 14:10 | DRG 682 ==
LOC: ERS 11:30 → ERHOLD 17:40 → 2NO 19:47 → ONC 10-17 11:48
PROVIDERS: ADMIT Internal Medicine; ATTEND Internal Medicine
DX: N17.9 Acute kidney failure, unspecified (principal); I21.4 Non-ST elevation (NSTEMI) myocardial infarction; J90 Pleural effusion, not elsewhere classified; E11.22 Type 2 diabetes mellitus with diabetic chronic kidney disease; E88.09 Other disorders of plasma-protein metabolism, not elsewhere classified; I24.8 Other forms of acute ischemic heart disease; I31.3 Pericardial effusion (noninflammatory); E87.1 Hypo-osmolality and hyponatremia; I13.0 Hypertensive heart and chronic kidney disease with heart failure and stage 1 through stage 4 chronic kidney disease, or unspecified chronic kidney disease; K74.3 Primary biliary cirrhosis; E03.9 Hypothyroidism, unspecified; I25.10 Atherosclerotic heart disease of native coronary artery without angina pectoris; Z95.1 Presence of aortocoronary bypass graft; E78.5 Hyperlipidemia, unspecified; Z88.6 Allergy status to analgesic agent; Z88.5 Allergy status to narcotic agent; Z79.84 Long term (current) use of oral hypoglycemic drugs; Z79.82 Long term (current) use of aspirin; N18.3 Chronic kidney disease, stage 3 (moderate); E87.6 Hypokalemia; D64.9 Anemia, unspecified; I50.9 Heart failure, unspecified
CPT/HCPCS: 36415; 36416; 71045; 80048; 80053; 81003; 81015; 82553; 83690; 84484; 85025; 93005; 93306; 94760; 96374; G8978-GP-CL; G8979-GP-CK; G8987-GO-CK; G8988-GO-CJ; J0696; J1644; J2405

== ENCOUNTER 2017-10-28 09:53 | Inpatient (IN) | payer MEDICARE, MEDICAID ==
[2017-10-28 10:49] LABS: INR-International Normal Ratio 1.6
[2017-10-28 10:50] LABS: PTT 37.1 SEC (22.9-36.1)
[2017-10-28 11:09] LABS: Troponin I 0.048 ng/mL (< 0.028)
[2017-10-28 11:15] LABS: CKMB 6.9 ng/mL (0-6.6)
[2017-10-28 11:16] LABS: Band 3 % (5-11); Eosinophils 3 % (0-10); Hemoglobin 10.6 g/dL (12.0-16.0); Lymphocytes 40 % (21-51); MDiff Complete? YES; Mean Corpuscular HGB CONC 31.9 g/dL (32.0-36.0); Mean Corpuscular Hemoglobin 30.4 pg (27.0-31.0); Mean Corpuscular Volume 95.2 fl (81.0-99.0); Mean Platelet Volume 9.4 fL (7.4-10.4); Neutrophil 54 % (42-75); PLT Morphology Comment Appears Decreased; Platelet Count 80 thou/uL (130-400); RBC Distribution Width 15.9 % (11.5-14.5); White Blood Cell (WBC) Count 3.2 thou/uL (4.8-10.8)
--- NOTE | 2017-10-28 11:17 | RAD ---
SINGLE VIEW OF THE CHEST: COMPARISON: 10/15/17. HISTORY: Dyspnea and shortness of breath. FINDINGS: A single view of the chest shows a normal-size cardiomediastinal silhouette. The patient is status p ost CABG. There are moderate bilateral pleural effusions. IMPRESSION: Moderate bilateral pleural effusions. POS: [facility]
[2017-10-28 11:26] LABS: Bilirubin Negative (Negative); Blood, Urine Moderate (Negative); Clarity TURBID (Clear); Glucose, Urine (Dipstick) Negative (Negative); Leukocyte Moderate (Negative); Nitrite Negative (Negative); Protein, Urine (Dipstick) 30 mg/dL (Neg-Trace); Specific Gravity, Urine 1.021 (1.002-1.036)
[2017-10-28 11:28] LABS: ALT (SGPT) 63 U/L (8-55); AST (SGOT) 96 U/L (5-34); Albumin 2.2 g/dL (3.4-4.8); Alkaline Phosphatase 135 U/L (40-150); Anion Gap 10 mmol/L (10-20); BUN (Urea Nitrogen) 36 mg/dL (9.8-20.1); Bilirubin, Total 1.2 mg/dL (0.2-1.2); CK (CPK) 283 U/L (29-168); Calc. Creatinine Clearance 0 mL/min (70-130); Calcium 8.3 mg/dL (7.8-10.44); Carbon Dioxide 23 mmol/L (23-31); Chloride 104 mmol/L (98-107); Estimated GFR-MDRD 27; Globulin 4.5 g/dL (2.4-3.5); Glucose 127 mg/dL (83-110); Lipase 72 U/L (8-78); Magnesium 2.3 mg/dL (1.6-2.6); Potassium 3.9 mmol/L (3.5-5.1); Protein, Total 6.4 g/dL (6.0-8.3); Sodium 137 mmol/L (136-145)
[2017-10-28 11:31] LABS: Bacteria/HPF 1+ HPF (None Seen)
[2017-10-28 11:32] LABS: Pathc Cast-AUWi Flag 2.71 (0-2.49); Yeast-AUWi Flag 537.9 (0-25.0)
[2017-10-28 11:44] LABS: Hyaline Casts/LPF NONE SEEN LPF (0-3 Hyaline); Other Casts/LPF None Seen LPF (0-3 Hyaline)
[2017-10-28 11:45] LABS: Yeast-All Forms None Seen HPF (None Seen)
[2017-10-28] MEDS ORDERED: Furosemide 20 MG/2 ML VIAL ONE (12:34)
[2017-10-28 14:24] LABS: Troponin I 0.049 ng/mL (< 0.028)
[2017-10-28 17:05] LABS: Troponin I 0.049 ng/mL (< 0.028)
[2017-10-28] MEDS: Heparin 5,000 UNITS/ML VIAL SC SCH ×2 (19:56→21:42)
[2017-10-28 19:59] VITALS: BMI 40.1
[2017-10-28] MEDS: Atorvastatin Calcium 20 MG TAB PO SCH (21:23)
--- NOTE | 2017-10-28 22:53 | HP ---
CHIEF COMPLAINT: Shortness of breath. HISTORY OF PRESENT ILLNESS: This is a 72-year-old female with a history of CABG in 09/2017, who presented with a chief complaint of shortness of breath and nausea. The patient states that she has been having some increased swelling around her lower extremities that has been ongoing for several days to weeks and has been actively managed by her PCP on an outpatient basis with oral Lasix administration; however, this has been progressing. The patient reports chest heaviness, substernal, centrally, she points to her xiphoid process when indicating area of discomfort. It is currently resolved at that point in time of my evaluation in the emergency department. She has been having some accompanying shortness of breath and nausea with this discomfort. REVIEW OF SYSTEMS: As per HPI. General: No fevers. The patient does endorse intermittent chills over the last 2 weeks at home. HEENT: Denies any new headaches or dizziness, but does endorse having felt somewhat more lightheaded during these episodes of chest heaviness. Gastrointestinal: No overt emesis, but does endorse feelings of nausea with these episodes of chest discomfort. No diarrhea, no issues with p.o. intake over the last week. Genitourinary: Denies any dysuria, change in urinary quality or quantity. Respiratory: Shortness of breath as per above. No new cough. No new upper respiratory type symptoms. Denies any sinus congestion. Does endorse some sensation of fullness and "muffled sound" in her right ear. Cardiovascular: Please see HPI. Musculoskeletal: No new arthralgias or myalgias. Remainder of review of systems otherwise negative. PAST MEDICAL HISTORY: As per above. 1. Status post CABG. 2. Hypertension. 3. Diabetes. 4. biliary cirrhosis. 5. Hypothyroidism. 6. Status post appendectomy 7. Status post section. HOME MEDICATIONS: Please see the EMR for full listing. The patient denies any changes other than the addition of Lasix in the last month. ALLERGIES: Include ACETAMINOPHEN, CHOCOLATE FLAVOR, HYDROCODONE. FAMILY HISTORY: The patient denies any family history of other family members having extensive cardiovascular disease, but does endorse a family history of hypertension and diabetes. SOCIAL HISTORY: Denies any alcohol, tobacco or illicit drug use. The patient is accompanied today by both her sister and her who are with her at bedside. The patient does need either her sister or her brother as a medical decision maker. She wishes to be FULL CODE at this point in time. PHYSICAL EXAMINATION: VITAL SIGNS: Blood pressure 124/42, pulse 64, respirations 18, satting 100% on room air. GENERAL: The patient is awake, alert, conversant. HEENT: Moist mucous membranes. Equal ocular motions are intact. Normocephalic , atraumatic. CARDIOVASCULAR: S1, S2. Pulses 2+ bilateral upper extremities, 3+ bilateral pitting pedal edema. RESPIRATORY: Reasonable air movement. No wheezes, rales or rhonchi. ABDOMEN: Obese, large, positive bowel sounds, soft, nontender to palpation. MUSCULOSKELETAL: Moving all 4 extremities on command. LABORATORY DATA AND IMAGIN. Chest x-ray "moderate bilateral pleural effusions." I reviewed the films myself and agree with the radiologist's interpretation. 2. WBC 3.2, hemoglobin 10.6, hematocrit 33.4, platelets 80. 3. PT 19.0, INR 1.6, aPTT 37.1. 4. Sodium 137, potassium 3.9, chloride 104, bicarb 23, BUN 36, creatinine 1.83 , glucose 127, calcium 8.3, magnesium 2.3, total bilirubin 1.2, AST 96, ALT 63, alkaline phosphatase 135, creatine kinase 283, CK-MB 6.9. Troponin 0.048, 0.049 , 0.049. Albumin 2.2, lipase 72. UA significant for protein, moderate blood, leukocyte esterase, 7-10 wbc's and 1 + bacteria. ASSESSMENT AND PLAN: This is a 72-year-old female who presents with chest pain , shortness of breath, status post CABG approximately 1 month ago. 1. Chest pain, rule out acute coronary syndrome, serial troponins, EKG in the morning, echocardiogram. The patient's CV surgeon has been called from the emergency department. 2. Moderate pleural effusions. See discussion above. We will initiate diuresis in the emergency department, has been given IV Lasix. We will continue with Lasix 20 mg IV b.i.d. and closely monitor the patient's electrolytes and renal status as she appears to have a component of acute kidney injury. 3. Acute kidney injury with a creatinine of 1.83, BUN of 36. Prior records seem to suggest a baseline creatinine approximately 1.5, closely monitor in the setting of active diuresis as noted above. 4. History of cirrhosis. Likely the etiology for the patient's mild pancytopenia and low platelets of 80. Hold on any deep venous thrombosis pharmacological prophylaxis. The patient's hepatic disease is likely also the etiology of her elevated INR at 1.6. 5. Abnormal urinalysis, repeat urinalysis. 6. Admit the patient inpatient for failed outpatient therapy and management for fluid overload. Admit the patient to medical/surgical with telemetry. The patient is FULL CODE. Thank you for asking me to care for your patient. Questions or concerns, contact me at [facility]. GERMÁN
[2017-10-29 05:46] LABS: Albumin 1.9 g/dL (3.4-4.8); Anion Gap 12 mmol/L (10-20); BUN (Urea Nitrogen) 33 mg/dL (9.8-20.1); BUN/Creatinine Ratio 20.63; Calc. Creatinine Clearance 45 mL/min (70-130); Calcium 8.2 mg/dL (7.8-10.44); Carbon Dioxide 24 mmol/L (23-31); Chloride 107 mmol/L (98-107); Estimated GFR-MDRD 32; Glucose 83 mg/dL (83-110); Phosphorus 3.4 mg/dL (2.3-4.7); Potassium 3.2 mmol/L (3.5-5.1); Sodium 140 mmol/L (136-145)
[2017-10-29 06:11] LABS: #Lymphocytes 0.9 thou/uL (1.20-3.40); #Monocytes 0.2 thou/uL (0.11-0.59); #Neutrophils 1.5 thou/uL (1.40-6.50); %Basophils 0.9 % (0.0-1.0); %Eosinophils 1.5 % (0.0-10.0); %Lymphocytes 33.3 % (21.0-51.0); %Monocytes 8.1 % (0.0-10.0); %Neutrophils 56.1 % (42.0-75.0); Hemoglobin 9.9 g/dL (12.0-16.0); Mean Corpuscular Hemoglobin 31.5 pg (27.0-31.0); Mean Corpuscular Volume 95.5 fl (81.0-99.0); Mean Platelet Volume 9.1 fL (7.4-10.4); PLT Morphology Comment Appears Decreased; Platelet Count 65 thou/uL (130-400); RBC Distribution Width 15.8 % (11.5-14.5); Red Blood Cell (RBC) Count 3.13 mill/uL (4.20-5.40); White Blood Cell (WBC) Count 2.7 thou/uL (4.8-10.8)
[2017-10-29] MEDS: Levothyroxine Sodium 25 MCG TAB PO SCH (06:12)
[2017-10-29] MEDS: Furosemide 20 MG/2 ML VIAL SLOW IVP SCH ×2 (06:12→14:59)
[2017-10-29] MEDS ORDERED: Potassium Chloride 20 MEQ TAB PO SCH (08:30)
[2017-10-29] MEDS ORDERED: Heparin 5,000 UNITS/ML VIAL SC SCH (09:00)
[2017-10-29] MEDS ORDERED: Famotidine 20 MG TAB PO SCH (09:00)
[2017-10-29] MEDS: Aspirin 325 MG TAB PO SCH (09:38)
[2017-10-29] MEDS: Nadolol 40 MG TAB PO SCH (09:40)
--- NOTE | 2017-10-29 09:43 | PDOC.PN ---
- Subjective Encounter Start Date: 10/29/17 Encounter Start Time: 09:42 Subjective: nsg notes rev, cristy ovn no new c/o overall feels a little better -: friend visiting @ bedside - Objective Resuscitation Status: Resuscitation Status FULL:Full Resuscitation Vital Signs & Weight: Vital Signs (12 hours) Temp Pulse Resp BP Pulse Ox 10/29/17 04:15 98.3 F 94 16 111/55 L 95 Weight Weight 198 lb 8 oz I&O: 10/28/17 10/29/17 10/30/17 06:59 06:59 06:59 Intake Total 240 Output Total 250 Balance -10 Result Diagrams: 10/29/17 04:56 10/29/17 04:56 Additional Labs: Accuchecks 10/29/17 10/28/17 05:37 21:09 POC Glucose 91 109 Phys Exam - Physical Examination Constitutional: NAD HEENT: PERRLA, moist MMs, sclera anicteric diminished, coarse, marginal air movement without w/r/r soft heart tones, otherwise rrr, no m/r/g Gastrointestinal: soft, non-tender, no distention, positive bowel sounds large Musculoskeletal: pulses present 3+ b/l LE pitting pedal edema Neurological: moves all 4 limbs Psychiatric: normal affect, A&O x 3 Dx/Plan (1) Acute on chronic diastolic CHF (congestive heart failure) Code(s): I50.33 - ACUTE ON CHRONIC DIASTOLIC (CONGESTIVE) HEART FAILURE Status : Acute Comment: ef- 55% (2) Acute renal failure Status: Acute Qualifiers: Acute renal failure type: unspecified Qualified Code(s): N17.9 - Acute kidney failure, unspecified (3) Primary biliary cirrhosis Code(s): K74.3 - PRIMARY BILIARY CIRRHOSIS Status: Acute (4) S/P CABG x 2 Code(s): Z95.1 - PRESENCE OF AORTOCORONARY BYPASS GRAFT Status: Acute (5) Pleural effusion Code(s): J90 - PLEURAL EFFUSION, NOT ELSEWHERE CLASSIFIED Status: Chronic - Plan cont current plan of care, collins catheter, continue antibiotics, PT/OT 1. Chest pain, rule out acute coronary syndrome, serial troponins, EKG in the morning, echocardiogram. The patient's CV surgeon has been called from the emergency department. Will also consult patient's outpt manager unit. So far presentation more c/w fluid overload than primary ACS type picture 2. Moderate pleural effusions. Careful diuresis; lasix 20mg IV BID with electrolyte and renal monitoring. Unclear if these are effusion more predominately from cirrhosis or cardiovascular dysfunction 3. Acute kidney injury with a creatinine of 1.83, BUN of 36, improving with diuresis. Continue to monitor. Hypokalemia - continue to monitor on telemetry, oral repletion prn 4. History of cirrhosis. Likely the etiology for the patient's pancytopenia and elevated INR. d/C heparin dvt ppx for plts <70. TEDS for DVT ppx. See discussion above. 5. Abnormal UA - pending repeat UA and culture. Diet: cardiac, hepatic activity: OOB as tony, PT c/s Review of Systems - Medications/Allergies Allergies/Adverse Reactions: Allergies Allergy/AdvReac Type Severity Reaction Status Date / Time chocolate flavor Allergy Verified 10/28/17 20:51 hydrocodone bitartrate Allergy Verified 10/28/17 20:51 [From Vicodin] Medications: Current Medications Aspirin (Aspirin) 325 mg PO DAILY [facility] Atorvastatin Calcium (Lipitor) 20 mg PO HS [facility] Last Admin: 10/28/17 21:23 Dose: 20 mg Famotidine (Pepcid) 20 mg PO DAILY [facility] Furosemide (Lasix) 20 mg SLOW IVP 0600,1400 [facility] Last Admin: 10/29/17 06:12 Dose: 20 mg Heparin Sodium (Porcine) (Heparin) 5,000 units SC TID [facility] Lactulose (Lactulose) 20 gm PO BID [facility] Last Admin: 10/28/17 21:24 Dose: 20 gm Levothyroxine Sodium (Synthroid) 25 mcg PO 0600 [facility] Last Admin: 10/29/17 06:12 Dose: 25 mcg Nadolol (Corgard) 20 mg PO DAILY [facility] (Flaxseed Oil [ Flaxseed Oil] 2,000 Mg) 2,000 mg PO BID [facility] Ondansetron HCl (Zofran Odt) 4 mg PO Q6HR PRN PRN Reason: Nausea/Vomiting Potassium Chloride (K-Dur) 20 meq PO 0830 [facility] Stop: 10/29/17 11:00
--- NOTE | 2017-10-29 11:02 | RAD ---
PORTABLE CHEST: HISTORY: Pleural effusion. COMPARISON: 10/28/17. FINDINGS: Opacification of both lung bases is again noted consistent with bilateral effusions and bibasilar ate lectasis and/or infiltrates. IMPRESSION: There has been no significant change from yesterday. POS: [facility]
[2017-10-29 13:02] LABS: Bilirubin Negative (Negative); Blood, Urine Moderate (Negative); Clarity CLEAR (Clear); Glucose, Urine (Dipstick) Negative (Negative); Leukocyte Moderate (Negative); Nitrite Negative (Negative); Protein, Urine (Dipstick) Negative (Neg-Trace); Specific Gravity, Urine 1.013 (1.002-1.036)
[2017-10-29 13:04] LABS: Bacteria/HPF 1+ HPF (None Seen); Hyaline Casts/LPF 4-6 HYALINE CAST LPF (0-3 Hyaline); Pathc Cast-AUWi Flag 0.94 (0-2.49); RBC/HPF 21-50 HPF (0-3); Squamous Epithelial 0-3 HPF (0-3)
[2017-10-29 13:10] LABS: Renal Epithelial None Seen HPF (0-3); Transitional Epithelial NONE SEEN HPF (0-3)
[2017-10-29] MEDS ORDERED: Preparation H Suppository PR PRN (14:01)
[2017-10-29] MEDS: Ondansetron ODT 4 MG TAB PO PRN (18:59)
[2017-10-29] MEDS: FLAXSEED OIL 2000 MG PO SCH (19:48)
[2017-10-29] MEDS: Atorvastatin Calcium 20 MG TAB PO SCH (22:10)
[2017-10-29] MEDS: Senokot S 8.6-50 MG TAB PO SCH (22:11)
[2017-10-30] MEDS: Levothyroxine Sodium 25 MCG TAB PO SCH (05:58)
[2017-10-30] MEDS: Furosemide 20 MG/2 ML VIAL SLOW IVP SCH (05:58)
--- NOTE | 2017-10-30 09:23 | PQF ---
CLINICAL DOCUMENTATION IMPROVEMENT CLARIFICATION FORM: ICD-10 Updated PLEASE DO AN ADDENDUM TO THE PROGRESS NOTE WITH ANY DOCUMENTATION UPDATES OR ADDITIONS AND CARRY THROUGH TO DC SUMMARY. THANK YOU. DATE: 10/30 ATTN: DR. Gatito PALOMARES Please exercise your independent, professional judgment in responding to the clarification form. Clinical indicators are provided on the bottom of this form for your review Please check appropriate box(s): [ x ] Acute on Chronic Renal Failure please specify Stage of CKD ____4____ (see below) [ ] CKD without ARF/LEONELA please specify Stage of CKD [ ] Other diagnosis [ ] Unable to determine National Kidney Foundation Guidelines for CKD Staging Stage I Kidney damage with normal or increased GFR GFR > 90 Stage II Kidney damage with mildly decreased GFR GFR 60-89 Stage III Kidney damage with moderately decreased GFR GFR 30-59 Stage IV Kidney damage with severely decreased GFR GFR 16-29 Stage V Kidney failure GFR<15 ESRD End Stage Renal Disease On dialysis For continuity of documentation, please document condition throughout progress notes and discharge summary. Thank You. CLINICAL INDICATORS - SIGNS / SYMPTOMS / LABS PHYSICIAN H&P DOCUMENTATION 10/28: ASSESSMENT & PLAN: 3. LEONELA W/CREATININE OF 1.83, BUN 36. PRIOR RECORDS SEEM TO SUGGEST A BASELINE CREATININE APPROXIMATELY 1.5. BUN: 36 CR: 1.83 GFR: 27 (10/28, ADMIT) 33 1.60 32 (10/29) RISK FACTORS: ACUTE ON CHRONIC DIASTOLIC HF DM II HTN IV LASIX (10/28 - PRESENT) TREATMENTS: CLOSE MONITORING OF BUN & CR SERIAL BASEMET THANK YOU! Elissa (This form is maintained as a part of the permanent medical record) 2014 [id number]. All Rights Reserved Elissa Silva RN, BSN [email or web address] Office: [phone] [facility]
--- NOTE | 2017-10-30 09:56 | CON ---
DATE OF CONSULTATION: 10/30/2017 REASON FOR CONSULTATION: Heart failure. HISTORY OF PRESENT ILLNESS: Mrs. Hamilton is a very pleasant 72-year-old female, who comes to the hospital for shortness of breath. She had bypass surgery for ischemic cardiomyopathy in 09/2017 . About a month ago, she had a complicated postoperative course secondary to her primary biliary cir rhosis. She was kept in the hospital longer than usual for diuresis. She was developing a little bi t of hepatorenal syndrome. She did well eventually and was sent to [facility] and has been there sin e. She has been getting a little more fluid overload in the last few days and has been tried to be t reated with p.o. Lasix with minimal success. She was eventually transferred here for further care. She has received IV Lasix so far and is feeling much better. She has diuresed already about 2 liters out and is already breathing better. She is off of oxygen at the time. PAST MEDICAL HISTORY: 1. Coronary artery disease, status post coronary bypass grafting. 2. Probably biliary cirrhosis. 3. Hyperlipidemia. 4. Type 2 diabetes. 5. Gastroesophageal reflux disease. 6. Hypertension. 7. Spinal stenosis. 8. Hypothyroidism. PAST SURGICAL HISTORY: 1. Appendectomy. 2. . 3. CABG x2 with a LEBRON to LAD and a vein graft to an OM. She had severe left main disease. No reas onable target on the RCA so this was not bypassed. OUTPATIENT MEDICATIONS: 1. Tramadol. 2. Actigall. 3. Potassium chloride 10 mEq a day. 4. Zofran p.r.n. 5. Multivitamin daily. 6. Lisinopril 2.5 mg q.a.m. 7. Levothyroxine 25 mcg a day. 8. Lactulose 20 grams p.o. b.i.d. 9. Furosemide 40 mg b.i.d. 10. Flaxseed oil. 11. Famotidine 20 mg a day. 12. Atorvastatin 20 mg at bedtime. 13. Aspirin 325 a day. ALLERGIES: CHOCOLATE FLAVOR and HYDROCODONE. SOCIAL HISTORY: No alcohol, tobacco, or drugs. FAMILY HISTORY: Mother with heart disease. Sister with lung cancer, brother with type 2 diabetes. REVIEW OF SYSTEMS: Twelve-point review of systems was done and is all negative unless stated in the history of present illness. PHYSICAL EXAMINATION: VITAL SIGNS: Temperature 98.5, pulse 60, respiration rate 20, satting 96% on room air, and blood pre ssure 114/56. GENERAL: Awake, alert, oriented x3, in no distress. HEENT: Normocephalic, atraumatic. NECK: Supple. JVP up to about 12 cm of water. LUNGS: Reduced breath sounds bilateral with dullness and crackles in the mid lung carlos. CARDIOVASCULAR: S1 and S2. No S3 or S4, no murmurs or rubs. ABDOMEN: Soft, positive bowel sounds, small amount of ascites probably. EXTREMITIES: 1+ edema. SKIN: Warm and dry. LABORATORY WORK: Reviewed. White count 3.2, hemoglobin 10.6, hematocrit 33, platelet count of 80. Coags with INR 1.6. Chemistry with potassium is 3.2, BUN of 33, creatinine 1.6 down from 1.8. Tropo corey was indeterminate at 0.04, 0.04, and 0.04. CK-MB is 6.9. BNP was 479, albumin of 1.9. UA showe d moderate blood, 21-50 red cells, 11-20 white blood cells, 1+ bacteria. Urine culture is pending. EKG is reviewed. Chest x-rays were reviewed. Most recent echocardiogram was done on 10/22/2017 and she had an EF of 60% to 65% with a tiny pericar dial effusion with no tamponade. ASSESSMENT AND PLAN: 1. Acute on chronic diastolic heart failure. 2. Primary biliary cirrhosis. 3. Volume overload. 4. Coronary artery disease, status post bypass, stable. No acute coronary syndrome. 5. Hypertension. 6. Hyperlipidemia. PLAN: 1. Most of her fluid retention I suspect is related to her primary biliary cirrhosis, not so much fo r cardiac status. Her EF is normal with diastolic dysfunction, which is expected and coronary diseas e; however, the amount of fluid that she is collected and is more consistent with cirrhosis. Either way therapy is the same. Continue IV Lasix, she is already diuresing quite well. She is already fee ling better. 2. We may have to switch her home dose of Lasix to 80 mg b.i.d. She also says that she has a hard t claudio keeping the medicines down. So on discharge, we will have to switch Pepcid to better antacid. W mamadou will put her on Protonix 40 mg a day. Thank you for letting us to participate in the care of your patient. We will follow.
[2017-10-30] MEDS: Senokot S 8.6-50 MG TAB PO SCH ×2 (10:06→20:54)
[2017-10-30] MEDS: Nadolol 40 MG TAB PO SCH (10:06)
[2017-10-30] MEDS: Ondansetron ODT 4 MG TAB PO PRN (10:13)
[2017-10-30 10:17] LABS: #Eosinphils 0.1 thou/uL (0.0-0.7); #Lymphocytes 1.2 thou/uL (1.20-3.40); #Monocytes 0.4 thou/uL (0.11-0.59); #Neutrophils 2.5 thou/uL (1.40-6.50); %Basophils 0.6 % (0.0-1.0); %Lymphocytes 28.1 % (21.0-51.0); %Monocytes 8.6 % (0.0-10.0); %Neutrophils 60.7 % (42.0-75.0); Hemoglobin 10.8 g/dL (12.0-16.0); Mean Corpuscular HGB CONC 31.7 g/dL (32.0-36.0); Mean Corpuscular Hemoglobin 30.6 pg (27.0-31.0); Mean Corpuscular Volume 96.5 fl (81.0-99.0); Mean Platelet Volume 9.1 fL (7.4-10.4); Platelet Count 73 thou/uL (130-400); RBC Distribution Width 15.9 % (11.5-14.5); Red Blood Cell (RBC) Count 3.53 mill/uL (4.20-5.40); White Blood Cell (WBC) Count 4.2 thou/uL (4.8-10.8)
[2017-10-30 10:34] LABS: Anion Gap 13 mmol/L (10-20); BUN (Urea Nitrogen) 27 mg/dL (9.8-20.1); Calc. Creatinine Clearance 48 mL/min (70-130); Calcium 8.5 mg/dL (7.8-10.44); Carbon Dioxide 24 mmol/L (23-31); Chloride 104 mmol/L (98-107); Estimated GFR-MDRD 35; Glucose 181 mg/dL (83-110); Potassium 3.3 mmol/L (3.5-5.1); Sodium 138 mmol/L (136-145)
--- NOTE | 2017-10-30 11:11 | PDOC.PN ---
- Subjective Encounter Start Date: 10/30/17 Encounter Start Time: 11:11 Subjective: nsg notes rev, cristy ovn, no new c/o overall feels better -: sister at bedside - Objective Resuscitation Status: Resuscitation Status FULL:Full Resuscitation Vital Signs & Weight: Vital Signs (12 hours) Temp Pulse Resp BP Pulse Ox 10/30/17 07:40 98.5 F 68 20 114/56 L 96 10/30/17 04:00 99.4 F 76 20 108/52 L 94 L Weight Weight 197 lb I&O: 10/29/17 10/30/17 10/31/17 06:59 06:59 06:59 Intake Total 240 880 Output Total 250 1625 Balance -10 865 Result Diagrams: 10/30/17 09:59 10/30/17 09:59 Phys Exam - Physical Examination Constitutional: NAD HEENT: PERRLA, moist MMs Respiratory: no wheezing, no rales, no rhonchi Cardiovascular: RRR, no rub Gastrointestinal: soft, non-tender, positive bowel sounds Musculoskeletal: edema present Neurological: moves all 4 limbs Psychiatric: normal affect, A&O x 3 Dx/Plan (1) Acute on chronic diastolic CHF (congestive heart failure) Code(s): I50.33 - ACUTE ON CHRONIC DIASTOLIC (CONGESTIVE) HEART FAILURE Status : Acute Comment: ef- 55% (2) Acute renal failure Status: Acute Qualifiers: Acute renal failure type: unspecified Qualified Code(s): N17.9 - Acute kidney failure, unspecified (3) Primary biliary cirrhosis Code(s): K74.3 - PRIMARY BILIARY CIRRHOSIS Status: Acute (4) S/P CABG x 2 Code(s): Z95.1 - PRESENCE OF AORTOCORONARY BYPASS GRAFT Status: Acute (5) Pleural effusion Code(s): J90 - PLEURAL EFFUSION, NOT ELSEWHERE CLASSIFIED Status: Chronic - Plan Clinical fluid overload appears to be improved with IV lasix diuresis. Appreciate cardiology and CV surgery consultation given her known hx of CHF and recent CABG. Will change to oral lasix. Renal function has been improving with diuresis and suspect that this may reflect a component of LEONELA present on admission due to cardiorenal syndrome from increased intra-abdominal pressures. With increased outpatient lasix dosing she will need close outpt monitoring of renal function and electrolytes and likely daily oral potassium repletion therapy. Start lasix 80mg Po BID with KCL 20mg Po daily. Recheck in AM if continued hemodynamic stability, t/c d/c back to nursing facility. Since admission and initiation of diuresis, no further episodes of chest pain which was reason for initial evaluation. Continue fluid restriction. Review of Systems - Medications/Allergies Allergies/Adverse Reactions: Allergies Allergy/AdvReac Type Severity Reaction Status Date / Time chocolate flavor Allergy Verified 10/28/17 20:51 hydrocodone bitartrate Allergy Verified 10/28/17 20:51 [From Vicodin] Medications: Current Medications Aspirin (Aspirin) 325 mg PO DAILY [facility] Last Admin: 10/29/17 09:38 Dose: Not Given Atorvastatin Calcium (Lipitor) 20 mg PO HS [facility] Last Admin: 10/29/17 22:10 Dose: 20 mg Furosemide (Lasix) 20 mg SLOW IVP 0600,1400 [facility] Last Admin: 10/30/17 05:58 Dose: 20 mg Lactulose (Lactulose) 20 gm PO BID [facility] Last Admin: 10/30/17 10:07 Dose: 20 gm Levothyroxine Sodium (Synthroid) 25 mcg PO 0600 [facility] Last Admin: 10/30/17 05:58 Dose: 25 mcg Nadolol (Corgard) 20 mg PO DAILY [facility] Last Admin: 10/30/17 10:06 Dose: 20 mg Ondansetron HCl (Zofran Odt) 4 mg PO Q6HR PRN PRN Reason: Nausea/Vomiting Last Admin: 10/30/17 10:13 Dose: 4 mg Pantoprazole Sodium (Protonix) 40 mg PO DAILY [facility] Last Admin: 10/30/17 10:06 Dose: 40 mg Phenyleph/Shark Oil/[place] Butter (Preparation H) 1 supp SD QID PRN PRN Reason: Hemorrhoids Senna/Docusate Sodium (Senokot S) 1 tab PO BID [facility] Last Admin: 10/30/17 10:06 Dose: 1 tab
[2017-10-30] MEDS: Aspirin 325 MG TAB PO SCH (11:20)
[2017-10-30] MEDS ORDERED: Potassium Chloride 20 MEQ TAB PO SCH (11:22)
[2017-10-30] MEDS: Furosemide 80 MG TAB PO SCH (15:24)
[2017-10-30] MEDS: Atorvastatin Calcium 20 MG TAB PO SCH (20:54)
[2017-10-31] MEDS: Levothyroxine Sodium 25 MCG TAB PO SCH (05:36)
--- NOTE | 2017-10-31 06:32 | PDOC.CTH ---
Cardiology Progress Note - Subjective She feels much better. She has diuresed well and has noticed her swelling is improved. She is now able to lay flat on the bed without feeling short winded. - Objective Vital Signs Temp Pulse Resp BP Pulse Ox 10/31/17 04:00 98.4 F 71 18 120/58 L 93 L 10/31/17 00:00 98.3 F 65 18 109/50 L 96 10/30/17 20:50 98.2 F 65 18 95 10/30/17 19:05 98.2 F 65 18 123/58 L 95 Weight 189 lb 10/29/17 10/30/17 10/31/17 06:59 06:59 06:59 Intake Total 942 837 6303 Output Total 250 1625 2250 Balance -10 -909 -6413 - Physical Examination General/Neuro: alert & oriented x3, NAD Neck: no JVD present Lungs: CTA, unlabored respirations Heart: RRR Abdomen: NT/ND Extremities: + edema B (3+) - Telemetry Telemetry Rhythm: NSR - Labs Result Diagrams: 10/30/17 09:59 10/30/17 09:59 Troponin/CKMB CK-MB (CK-2) 6.9 ng/mL (0-6.6) H* 10/28/17 10:30 Troponin I 0.049 ng/mL (< 0.028) H 10/28/17 16:27 - Assessment/Plan 1. Acute on chronic diastolic heart failure. 2. Primary biliary cirrhosis. 3. Portal hypertension 4. CAD s/p CABG. 5. LEONELA on CKD. PLAN: - Continue IV diuresis. - Replace K - Creatinine improving to baseline. - Most of her fluid retention is likely form portal hypertension. - Will follow.
[2017-10-31] MEDS ORDERED: Potassium Chloride 20 MEQ TAB PO SCH ×2 (08:00→12:00)
[2017-10-31 09:58] LABS: #Eosinphils 0.1 thou/uL (0.0-0.7); #Lymphocytes 1.1 thou/uL (1.20-3.40); #Monocytes 0.3 thou/uL (0.11-0.59); %Basophils 1.1 % (0.0-1.0); %Eosinophils 2.6 % (0.0-10.0); %Lymphocytes 31.6 % (21.0-51.0); %Monocytes 8.7 % (0.0-10.0); %Neutrophils 56.1 % (42.0-75.0); Hemoglobin 10.5 g/dL (12.0-16.0); Mean Corpuscular Hemoglobin 30.9 pg (27.0-31.0); Mean Corpuscular Volume 96.7 fl (81.0-99.0); Mean Platelet Volume 9.7 fL (7.4-10.4); Platelet Count 70 thou/uL (130-400); RBC Distribution Width 15.9 % (11.5-14.5); Red Blood Cell (RBC) Count 3.41 mill/uL (4.20-5.40); White Blood Cell (WBC) Count 3.5 thou/uL (4.8-10.8)
[2017-10-31] MEDS: Potassium Chloride 20 MEQ TAB PO SCH (10:03)
[2017-10-31] MEDS: Nadolol 40 MG TAB PO SCH (10:04)
[2017-10-31] MEDS: Furosemide 80 MG TAB PO SCH ×2 (10:04→16:21)
[2017-10-31] MEDS: Senokot S 8.6-50 MG TAB PO SCH ×2 (10:05→21:57)
[2017-10-31] MEDS: Ondansetron ODT 4 MG TAB PO PRN (10:24)
[2017-10-31] MEDS: Aspirin 325 MG TAB PO SCH (10:44)
--- NOTE | 2017-10-31 15:48 | PDOC.PN ---
- Subjective Encounter Start Date: 10/31/17 Encounter Start Time: 15:47 Subjective: She reports feeling much better and anticipating discharge tomorrow. no c/o - Objective Resuscitation Status: Resuscitation Status FULL:Full Resuscitation MAR Reviewed: Yes Vital Signs & Weight: Vital Signs (12 hours) Temp Pulse Resp BP Pulse Ox 10/31/17 12:00 96.8 F L 61 18 114/63 96 10/31/17 08:30 98.5 F 67 18 93 L 10/31/17 08:00 98.5 F 67 18 118/58 L 93 L 10/31/17 04:00 98.4 F 71 18 120/58 L 93 L Weight Weight 189 lb I&O: 10/30/17 10/31/17 11/01/17 06:59 06:59 06:59 Intake Total 880 1080 Output Total 1625 2250 Balance -745 -1170 Result Diagrams: 10/31/17 09:07 10/30/17 09:59 Phys Exam - Physical Examination HEENT: PERRLA, moist MMs, sclera anicteric Neck: full ROM Respiratory: no wheezing, no rales, clear to auscultation bilateral Cardiovascular: RRR, no significant murmur, no rub, gallop, irregular Gastrointestinal: soft, non-tender, no distention, positive bowel sounds Musculoskeletal: edema present (b/l lower extremities) Neurological: non-focal, moves all 4 limbs Psychiatric: normal affect, A&O x 3 Skin: no rash Dx/Plan (1) Acute on chronic diastolic CHF (congestive heart failure) Code(s): I50.33 - ACUTE ON CHRONIC DIASTOLIC (CONGESTIVE) HEART FAILURE Status : Acute Plan: Improving with diuresis. COntinue new PO lasix dosage (80 mg BID) Monitor creatinine and potassium. Likely d/c to nursing facility tomorrow if indices improve. Comment: ef- 55% (2) Acute renal failure Status: Acute Qualifiers: Acute renal failure type: unspecified Qualified Code(s): N17.9 - Acute kidney failure, unspecified Plan: improving with diuesis. likely 2/2 cardiorenal syndrome. (3) HTN (hypertension) Code(s): I10 - ESSENTIAL (PRIMARY) HYPERTENSION Status: Acute Qualifiers: Hypertension type: essential hypertension Qualified Code(s): I10 - Essential (primary) hypertension Plan: Continue Nadolol. (4) Primary biliary cirrhosis Code(s): K74.3 - PRIMARY BILIARY CIRRHOSIS Status: Acute Plan: Will continue on Ursodiol. (5) S/P CABG x 2 Code(s): Z95.1 - PRESENCE OF AORTOCORONARY BYPASS GRAFT Status: Acute Plan: chest pain free, stable. Continue nadolol, statins. (6) CAD (coronary artery disease) Code(s): I25.10 - ATHSCL HEART DISEASE OF [place] CORONARY ARTERY W/O ANG PCTRS Status: Chronic Qualifiers: Coronary Disease-Associated Artery/Lesion type: [place] artery [place] vs. transplanted heart: [place] heart Associated angina: without angina Qualified Code(s): I25.10 - Atherosclerotic heart disease of [place] coronary artery without angina pectoris Plan: As above. (7) Hypothyroidism Code(s): E03.9 - HYPOTHYROIDISM, UNSPECIFIED Status: Acute Plan: Continue levothyroxine. (8) Thrombocytopenia Code(s): D69.6 - THROMBOCYTOPENIA, UNSPECIFIED Status: Chronic Plan: Chronic, likely 2/2 portal HTN. No signs of bleeding. Will continue to monitor. - Plan cont current plan of care, out of bed/ambulate, DVT proph w/SCDs * .
[2017-10-31 17:32] LABS: Anion Gap 10 mmol/L (10-20); BUN (Urea Nitrogen) 23 mg/dL (9.8-20.1); Calc. Creatinine Clearance 44 mL/min (70-130); Calcium 8.9 mg/dL (7.8-10.44); Carbon Dioxide 31 mmol/L (23-31); Chloride 102 mmol/L (98-107); Estimated GFR-MDRD 33; Glucose 126 mg/dL (83-110); Potassium 3.8 mmol/L (3.5-5.1); Sodium 139 mmol/L (136-145)
[2017-10-31] MEDS: Atorvastatin Calcium 20 MG TAB PO SCH (21:57)
[2017-10-31] MEDS: Ursodiol 300 MG CAP PO SCH (21:57)
[2017-11-01 05:46] LABS: Eosinophils 1 % (0-10); Lymphocytes 31 % (21-51); MDiff Complete? YES; Mean Corpuscular HGB CONC 32.6 g/dL (32.0-36.0); Mean Corpuscular Hemoglobin 31.5 pg (27.0-31.0); Mean Corpuscular Volume 96.6 fl (81.0-99.0); Mean Platelet Volume 10.1 fL (7.4-10.4); Monocytes 8 % (0-10); Neutrophil 60 % (42-75); PLT Morphology Comment Appears Decreased; Platelet Count 41 thou/uL (130-400); RBC Distribution Width 15.9 % (11.5-14.5); White Blood Cell (WBC) Count 3.3 thou/uL (4.8-10.8)
[2017-11-01 05:48] LABS: Anion Gap 12 mmol/L (10-20); BUN (Urea Nitrogen) 21 mg/dL (9.8-20.1); Calc. Creatinine Clearance 45 mL/min (70-130); Calcium 8.8 mg/dL (7.8-10.44); Carbon Dioxide 26 mmol/L (23-31); Chloride 105 mmol/L (98-107); Estimated GFR-MDRD 34; Glucose 92 mg/dL (83-110); Magnesium 1.6 mg/dL (1.6-2.6); Potassium 3.6 mmol/L (3.5-5.1); Sodium 139 mmol/L (136-145)
[2017-11-01] MEDS: Levothyroxine Sodium 25 MCG TAB PO SCH (05:56)
[2017-11-01] MEDS: Nadolol 40 MG TAB PO SCH (09:12)
[2017-11-01] MEDS: Furosemide 80 MG TAB PO SCH (09:13)
[2017-11-01] MEDS: Potassium Chloride 20 MEQ TAB PO SCH (09:13)
[2017-11-01] MEDS: Ursodiol 300 MG CAP PO SCH ×3 (09:13→22:37)
[2017-11-01] MEDS: Ondansetron ODT 4 MG TAB PO PRN (09:16)
[2017-11-01] MEDS: Senokot S 8.6-50 MG TAB PO SCH ×2 (10:37→22:36)
[2017-11-01] MEDS ORDERED: Furosemide 80 MG TAB PO SCH (12:32)
--- NOTE | 2017-11-01 12:34 | PDOC.PN ---
- Subjective Encounter Start Date: 11/01/17 Encounter Start Time: 12:32 Subjective: No acute events overnights, no complaints today. - Objective Resuscitation Status: Resuscitation Status FULL:Full Resuscitation MAR Reviewed: Yes Vital Signs & Weight: Vital Signs (12 hours) Temp Pulse Resp BP BP Pulse Ox 11/01/17 08:00 98.1 F 73 16 95 11/01/17 07:31 98.1 F 73 16 113/51 L 95 11/01/17 04:00 98.4 F 78 18 104/53 L 96 Weight Weight 189 lb 2 oz I&O: 10/31/17 11/01/17 11/02/17 06:59 06:59 06:59 Intake Total 1080 1200 Output Total 2250 2100 Balance -1170 -900 Result Diagrams: 11/01/17 05:11 11/01/17 05:11 Phys Exam - Physical Examination Constitutional: NAD HEENT: PERRLA, moist MMs, sclera anicteric Neck: full ROM Respiratory: no wheezing, clear to auscultation bilateral Cardiovascular: RRR, no significant murmur, no rub Gastrointestinal: soft, non-tender, no distention, positive bowel sounds Musculoskeletal: edema present (1+ b/l lower extremities. ) Neurological: non-focal, moves all 4 limbs Psychiatric: normal affect, A&O x 3 Skin: no rash Dx/Plan (1) Acute on chronic diastolic CHF (congestive heart failure) Code(s): I50.33 - ACUTE ON CHRONIC DIASTOLIC (CONGESTIVE) HEART FAILURE Status : Acute Plan: Continue furosemide. Comment: ef- 55%. improving with diuresis, negative fluid balance. Was on 80 mg BID furosemide, reduced to 40 mg BID (11/01) (2) Acute renal failure Status: Acute Qualifiers: Acute renal failure type: unspecified Qualified Code(s): N17.9 - Acute kidney failure, unspecified Plan: Monitor renal indices. Comment: Likely 2/2 cardiorenal. Improving with diuresis. (3) HTN (hypertension) Code(s): I10 - ESSENTIAL (PRIMARY) HYPERTENSION Status: Acute Qualifiers: Hypertension type: essential hypertension Qualified Code(s): I10 - Essential (primary) hypertension Plan: Continue Nadolol. Comment: On Nadolol. At goal/ (4) Primary biliary cirrhosis Code(s): K74.3 - PRIMARY BILIARY CIRRHOSIS Status: Acute Plan: Continue home regimen. Comment: On Ursodiol on outpatient basis. Has been restarted (5) S/P CABG x 2 Code(s): Z95.1 - PRESENCE OF AORTOCORONARY BYPASS GRAFT Status: Acute Plan: Continue home regimen. Comment: Stable, Chest pain free. On ASA, statil and beta luis. (6) CAD (coronary artery disease) Code(s): I25.10 - ATHSCL HEART DISEASE OF [place] CORONARY ARTERY W/O ANG PCTRS Status: Chronic Qualifiers: Coronary Disease-Associated Artery/Lesion type: [place] artery [place] vs. transplanted heart: [place] heart Associated angina: without angina Qualified Code(s): I25.10 - Atherosclerotic heart disease of [place] coronary artery without angina pectoris (7) Hypothyroidism Code(s): E03.9 - HYPOTHYROIDISM, UNSPECIFIED Status: Acute Plan: COntinue levothyroxine. Comment: On Levothyroxine. (8) Thrombocytopenia Code(s): D69.6 - THROMBOCYTOPENIA, UNSPECIFIED Status: Chronic Plan: Worsening. Likely PBC, worsened by furosemide. No acute signs of bleeding and patient asymptomatic. Will reduce furosemide to 40 mg BID anf get a hematology consult. Unlikely 2/2 ELVIRA as pt not on heparin or related products. Comment: Has chronic thrombocytopenia, likely 2/2 PBC. - Plan cont current plan of care, out of bed/ambulate, DVT proph w/SCDs * .
[2017-11-01] MEDS: Furosemide 40 MG TAB PO SCH (13:10)
--- NOTE | 2017-11-01 16:41 | CON ---
DATE OF CONSULTATION: 11/01/2017 REASON FOR CONSULTATION: Thrombocytopenia. HISTORY OF PRESENT ILLNESS: Ms. Solis is a very pleasant 72-year-old female with a history of primary biliary cirrhosis, portal hypertension, and ischemic cardiomyopathy, who presented to this facility with volume overload. She was started on 80 mg of IV Lasix twice a day with improvement in her volume overload. On admission, her white count was 3.2, her hemoglobin was 10.6 and her platelet count was 80,000. The platelets have been stable over the last 4 days until this morning when they dropped to 41,000. The patient denies any melena, hematochezia, or hemoptysis. She states that she is feeling significantly better since arrival. Denies any shortness of breath or chest pain. PAST MEDICAL HISTORY: 1. Primary biliary cirrhosis. 2. Coronary artery disease. 3. Hyperlipidemia. 4. Type 2 diabetes. 5. Portal hypertension. 6. Essential hypertension. 7. Gastroesophageal reflux disease. 8. Spinal stenosis. 9. Hypothyroidism. PAST SURGICAL HISTORY: 1. Appendectomy. 2. . 3. CABG x2. HOME MEDICATIONS: 1. Aspirin 325 mg daily. 2. Lipitor 20 mg daily. 3. Lasix 40 mg twice a day. 4. Lactulose 20 grams b.i.d. 5. Synthroid 25 mcg daily. 6. Corgard 20 mg daily. 7. Protonix 40 mg daily. 8. Potassium chloride 20 mEq daily. 9. Senokot b.i.d. 10. Ursodiol 300 mg t.i.d. FAMILY HISTORY: Noncontributory. SOCIAL HISTORY: The patient is and lives with her spouse. No alcohol, tobacco or illicit drug use. REVIEW OF SYSTEMS: Ten point review of systems is negative except for noted in HPI. PHYSICAL EXAMINATION: VITAL SIGNS: Temperature is 97.7, pulse is 61, respiratory rate 18, BP is 102/ 49. She is 98% on room air. GENERAL: This is an obese female, in no acute distress. HEENT: Normocephalic, atraumatic. Pupils equal and reactive to light. She has poor dentition. NECK: Supple. CARDIOVASCULAR: Regular rate and rhythm. LUNGS: Clear. ABDOMEN: Obese and soft. Bowel sounds are positive. EXTREMITIES: She has 1+ edema in bilateral lower extremities. SKIN: There is no rash. HEMATOLOGICAL: There is no petechia or purpura. NEUROLOGIC: Nonfocal. PSYCHIATRIC: The patient is alert and oriented and appropriate. PERTINENT LABORATORY AND X-RAYS: Current WBCs are 3.3, hemoglobin 11, hematocrit 33.8, platelet count is 41,000. She has got 60% neutrophils, 30% lymphocytes. PT is 19, INR is 1.6, PTT 37.1. Sodium is 139, potassium 3.6, chloride 105, CO2 is 26, BUN is 21, creatinine is 1.52, calcium is 8.8. Total bilirubin is 1.2, AST is 96, ALT 63, alkaline phosphatase is 135, creatinine kinase is 283, troponin is 0.049. BNP is 479.4. Serum total protein is 6.4, albumin 2.2, globulin 4.5, lipase 72. Urine showed 1+ bacteria with moderate leukocyte esterase, negative nitrites. IMPRESSION: 1. Pancytopenia, this is intermittent and chronic. 2. Primary biliary cirrhosis. 3. Portal hypertension. 4. Volume overload on furosemide administration. DISCUSSION: The patient's platelet count baseline for the past several years is between 70 and 80,000. The drop in her platelets on this admission is most likely due to the high dose of furosemide. This dose has already been reduced. There is no evidence of heparin-induced thrombocytopenia. She has not received any heparin on this admission. I would recommend following a CBC and suspect that her platelet count will improve over the next few days. She will follow up with Dr. Evans in the outpatient setting for her cirrhosis. Thank you for the consult. GERMÁN
--- NOTE | 2017-11-01 17:10 | PDOC.CTH ---
Cardiology Progress Note - Subjective She is doing much better. Her breathing is back to baseline. She is not requiring any Oxygen supplementation. She is walking with PT. - Objective Vital Signs Temp Pulse Resp BP BP Pulse Ox 11/01/17 15:44 97.7 F 65 16 105/47 L 94 L 11/01/17 13:02 97.7 F 61 18 102/49 L 98 11/01/17 08:00 98.1 F 73 16 95 11/01/17 07:31 98.1 F 73 16 113/51 L 95 Weight 189 lb 2 oz 10/31/17 11/01/17 11/02/17 06:59 06:59 06:59 Intake Total 1080 1200 Output Total 2250 2100 Balance -1170 -900 - Physical Examination General/Neuro: alert & oriented x3, NAD Neck: no JVD present Lungs: unlabored respirations Heart: RRR Abdomen: NT/ND Extremities: + edema B (1+ worse on R) - Telemetry Telemetry Rhythm: NSR - Labs Result Diagrams: 11/01/17 05:11 11/01/17 05:11 Troponin/CKMB CK-MB (CK-2) 6.9 ng/mL (0-6.6) H* 10/28/17 10:30 Troponin I 0.049 ng/mL (< 0.028) H 10/28/17 16:27 - Assessment/Plan 1. Acute on chronic diastolic heart failure. 2. Primary biliary cirrhosis. 3. Portal hypertension 4. CAD s/p CABG. 5. LEONELA on CKD. PLAN: - Switch to P{O lasix home dose. - Most of her fluid retention is likely form portal hypertension. - She is close to her baseline. - May discharge home any time from cardiac perspective.
[2017-11-01] MEDS: Atorvastatin Calcium 20 MG TAB PO SCH (22:37)
[2017-11-02] MEDS: Levothyroxine Sodium 25 MCG TAB PO SCH (05:35)
[2017-11-02 05:40] LABS: #Eosinphils 0.1 thou/uL (0.0-0.7); #Lymphocytes 1.4 thou/uL (1.20-3.40); #Monocytes 0.4 thou/uL (0.11-0.59); #Neutrophils 1.7 thou/uL (1.40-6.50); %Eosinophils 3.4 % (0.0-10.0); %Monocytes 9.8 % (0.0-10.0); %Neutrophils 46.8 % (42.0-75.0); Hemoglobin 10.2 g/dL (12.0-16.0); Mean Corpuscular HGB CONC 32.6 g/dL (32.0-36.0); Mean Corpuscular Hemoglobin 31.2 pg (27.0-31.0); Mean Corpuscular Volume 95.7 fl (81.0-99.0); Mean Platelet Volume 8.9 fL (7.4-10.4); Platelet Count 71 thou/uL (130-400); RBC Distribution Width 15.7 % (11.5-14.5); Red Blood Cell (RBC) Count 3.28 mill/uL (4.20-5.40); White Blood Cell (WBC) Count 3.6 thou/uL (4.8-10.8)
[2017-11-02 05:50] LABS: Anion Gap 11 mmol/L (10-20); BUN (Urea Nitrogen) 23 mg/dL (9.8-20.1); Calc. Creatinine Clearance 37 mL/min (70-130); Calcium 8.5 mg/dL (7.8-10.44); Carbon Dioxide 31 mmol/L (23-31); Chloride 102 mmol/L (98-107); Estimated GFR-MDRD 28; Glucose 80 mg/dL (83-110); Magnesium 1.5 mg/dL (1.6-2.6); Potassium 3.3 mmol/L (3.5-5.1); Sodium 141 mmol/L (136-145)
[2017-11-02] MEDS: Furosemide 40 MG TAB PO SCH (08:47)
[2017-11-02] MEDS: Nadolol 40 MG TAB PO SCH (08:47)
[2017-11-02] MEDS: Senokot S 8.6-50 MG TAB PO SCH (08:48)
[2017-11-02] MEDS: Ursodiol 300 MG CAP PO SCH (08:49)
[2017-11-02 13:14] VITALS: BP 109/56; TEMP 98
--- NOTE | 2017-11-03 00:09 | DIS ---
DATE OF ADMISSION: 10/28/2017 DATE OF DISCHARGE: 11/02/2017 PRIMARY CARE PROVIDER: Jo Santacruz M.D. DISPOSITION: Discharge to [facility]. DISCHARGE DIAGNOSIS: Acute on chronic renal failure. SECONDARY DIAGNOSES: Acute on chronic renal failure, hypertension, primary biliary cirrhosis, thromb ocytopenia, status post coronary artery bypass graft x2, CAD, hypothyroidism. ALLERGIES: ACETAMINOPHEN, HYDROCODONE. DISCHARGE MEDICATIONS: Aspirin 325 mg p.o. daily, atorvastatin 20 mg p.o. at bedtime, famotidine 20 mg p.o. daily, flaxseed oil 2000 mg p.o. b.i.d., furosemide 40 mg p.o. b.i.d., lactulose 20 g p.o. b. i.d., levothyroxine 25 mcg p.o. q.a.m., lisinopril 2.5 mg p.o. q.a.m., magnesium oxide 400 mg p.o. b. i.d. for 7 days, multivitamin 1 tablet p.o. daily, nadolol 20 mg p.o. daily, ondansetron 4 mg p.o. q. 4 hours p.r.n. for nausea and vomiting, potassium chloride 10 mEq p.o. daily, tramadol 50 mg p.o. q.4 hours p.r.n. for pain, and ursodiol 300 mg p.o. t.i.d. CONSULTATIONS: Cardiology, Hematology/Oncology. HOSPITAL COURSE: A 72-year-old female with a history of CABG in 09/2017, who presented to the emerge ncy room with shortness of breath and nausea. The patient states she has been having increased short ness of breath and marked lower extremity edema for several days to weeks. This was being managed ac tively by her primary care physician with p.o. furosemide, thought, her symptoms have been progressiv e and then she decided to present to the emergency room. She also reported chest heaviness, which wa s substernal. By the time of examination, it had resolved. She also had accompanying shortness of b reath, nausea. Labs on admission showed elevated troponin 0.48, but was stable throughout admission and started trending down. BNP of 179, BUN/creatinine of 36 and 1.83. She was started on diuretics and admitted for acute on chronic diastolic heart failure. She continues to diurese well with IV fur osemide and initially transitioned to furosemide 80 mg p.o. b.i.d. and eventually reduced to 40 mg b. i.d., per her home regimen. Other medical conditions managed include acute renal failure, which was likely secondary to cardiorenal syndrome. This was treated with diuresis and improved before dischar ge. She also developed thrombocytopenia (the patient has a history of thrombocytopenia, but on this admission, this was aggravated by high dose of diuretics use) this improved before discharge. She sh owed no signs of acute bleeding. She is to follow up with extension work instructor following discharge, labs, BU N/creatinine 23, 1.8, potassium of 3.3 and patient received supplementation and magnesium before disc harge. PROCEDURES: Chest x-ray 10/29/2017, opacification in both lung bases consistent with bilateral effus ions, bibasilar atelectasis/infiltrates. PHYSICAL EXAMINATION: VITAL SIGNS: Stable. CONSTITUTIONAL: Not in acute distress. HEENT: PERRLA. Moist mucous membranes. Sclerae are anicteric. NECK: Supple, full range of movement. RESPIRATORY: No wheezing. Clear to auscultation bilaterally. CARDIOVASCULAR: Regular rate and rhythm. No significant murmur, no rubs. GASTROINTESTINAL: Soft, nontender, nondistended. Positive bowel sounds. MUSCULOSKELETAL: Minimal bilateral lower extremity edema. NEUROLOGIC: Alert and well oriented. No focal deficits. PSYCHIATRIC: Normal affect and mood. SKIN: No rashes or lesions. DISCHARGE CONDITION: Fair. DISPOSITION: Discharged to intermediate facility, restrictions of activity. She will resume acti vities as directed by PT/OT. CARE GOALS: Patient to follow up with her primary care provider within 1 week of discharge for repea t labs. Encouraged to take her medications as prescribed and also to follow up with Cardiology Servi ce. Total time on discharge including chart review and documentation 65 minutes.
--- NOTE | 2017-11-17 16:10 | EKG ---
Test Reason : Blood Pressure : / mmHG Vent. Rate : 069 BPM Atrial Rate : 069 BPM P-R Int : 154 ms QRS Dur : 082 ms QT Int : 408 ms P-R-T Axes : 024 023 045 degrees QTc Int : 437 ms Normal sinus rhythm Nonspecific T wave abnormality Abnormal ECG Confirmed by JUDE BLANTON M.D. ([id number]), production editor RHODA BELLA ([id number] on 11/17/2017 4:09:34 PM Referred By: Confirmed By:JUDE BLANTON M.D.
== END 2017-11-02 13:18 | DRG 291 ==
LOC: ERS 09:53 → ERHOLD 12:04 → 2NO 19:28
PROVIDERS: ADMIT Internal Medicine; ATTEND Internal Medicine
DX: I13.0 Hypertensive heart and chronic kidney disease with heart failure and stage 1 through stage 4 chronic kidney disease, or unspecified chronic kidney disease (principal); I50.33 Acute on chronic diastolic (congestive) heart failure; D61.818 Other pancytopenia; N18.4 Chronic kidney disease, stage 4 (severe); D69.6 Thrombocytopenia, unspecified; E11.22 Type 2 diabetes mellitus with diabetic chronic kidney disease; N17.9 Acute kidney failure, unspecified; K76.6 Portal hypertension; E87.70 Fluid overload, unspecified; I25.5 Ischemic cardiomyopathy; I25.10 Atherosclerotic heart disease of native coronary artery without angina pectoris; Z95.1 Presence of aortocoronary bypass graft; E03.9 Hypothyroidism, unspecified; Z88.6 Allergy status to analgesic agent; Z88.5 Allergy status to narcotic agent; Z91.018 Allergy to other foods; E78.5 Hyperlipidemia, unspecified; K21.9 Gastro-esophageal reflux disease without esophagitis; K74.3 Primary biliary cirrhosis; E87.6 Hypokalemia; F32.9 Major depressive disorder, single episode, unspecified
CPT/HCPCS: 36415; 36416; 71045; 80048; 80053; 80069; 81003; 81015; 82553; 83690; 83735; 83880; 84484; 85025; 85610; 85730; 87086; 93005; 93798; 94760; 96374; J1644; J1940; Q0162

== ENCOUNTER 2018-02-06 10:58 | Outpatient (CLI) | payer MEDICARE, MEDICAID | END 2018-02-06 10:59 | disposition home or self-care (01) | LOC: BICMAMMO 10:58 | PROVIDERS: ATTEND Family Medicine | DX: Z12.31 Encounter for screening mammogram for malignant neoplasm of breast (principal); M81.0 Age-related osteoporosis without current pathological fracture; R92.1 Mammographic calcification found on diagnostic imaging of breast | CPT/HCPCS: 77063; 77067; 77080 ==

== ENCOUNTER 2018-03-29 13:19 | Outpatient (CLI) | payer MEDICARE, MEDICAID ==
--- NOTE | 2018-03-29 13:37 | RAD ---
2 VIEWS CHEST: Date: 03/29/18 COMPARISON: 10/29/17. HISTORY: Coronary artery disease. FINDINGS: Two views of the chest show an enlarged but stable cardiomediastinal silhouette. The patient is statu s post sternotomy. There is elevation of the left hemidiaphragm. There is no evidence of consolidatio n. There may be a small left pleural effusion. IMPRESSION: Possible small left pleural effusion. POS: [facility]
== END 2018-03-29 13:20 | disposition home or self-care (01) ==
LOC: RAD 13:19
PROVIDERS: ATTEND Internal Medicine Cardiovascular Disease
DX: I25.10 Atherosclerotic heart disease of native coronary artery without angina pectoris (principal); I35.0 Nonrheumatic aortic (valve) stenosis
CPT/HCPCS: 71046

== ENCOUNTER 2018-08-26 07:56 | Outpatient (CLI) | payer MEDICARE, MEDICAID ==
--- NOTE | 2018-08-26 08:45 | ULT ---
ULTRASOUND ABDOMEN WITH DOPPER: (silverman scale, color flow, and spectral Doppler) HISTORY: Cirrhosis of the liver. FINDINGS: The liver demonstrates heterogeneous echotexture without focal mass or intrahepatic ductal dilatation . No gallstones, gallbladder wall thickening, or pericholecystic fluid is seen. The common duct shirley sures 4 mm in diameter. The spleen is enlarged measuring 13.8 cm. The pancreas is not well visualiz ed due to overlying bowel gas. Kidneys and visualized portions of the aorta and IVC are unremarkable . There is normal flow and spectral waveforms in the hepatic, portal, and splenic vasculature. No asci priyanka is seen. IMPRESSION: 1. No evidence of hepatic mass or cholelithiasis. 2. Mild splenomegaly. POS: [facility]
== END 2018-08-26 07:57 | disposition home or self-care (01) ==
LOC: SCSULT 07:56 → BICULT 07:57
PROVIDERS: ATTEND Internal Medicine Gastroenterology
DX: K74.60 Unspecified cirrhosis of liver (principal); K74.3 Primary biliary cirrhosis; R16.1 Splenomegaly, not elsewhere classified
CPT/HCPCS: 76700

== ENCOUNTER 2018-08-27 19:49 | Emergency (ER) | payer MEDICARE, MEDICAID ==
[2018-08-27 20:42] LABS: #Eosinphils 0.1 thou/uL (0.0-0.7); #Lymphocytes 0.8 thou/uL (1.20-3.40); #Monocytes 0.3 thou/uL (0.11-0.59); #Neutrophils 1.6 thou/uL (1.40-6.50); %Basophils 1.1 % (0.0-1.0); %Eosinophils 2.4 % (0.0-10.0); %Lymphocytes 30.1 % (21.0-51.0); %Neutrophils 57.5 % (42.0-75.0); Mean Corpuscular HGB CONC 32.1 g/dL (32.0-36.0); Mean Corpuscular Hemoglobin 30.9 pg (27.0-31.0); Mean Corpuscular Volume 96.3 fL (78.0-98.0); Mean Platelet Volume 9.6 fL (7.4-10.4); Platelet Count 72 thou/uL (130-400); RBC Distribution Width 14.4 % (11.5-14.5); Red Blood Cell (RBC) Count 3.55 mill/uL (4.20-5.40); White Blood Cell (WBC) Count 2.8 thou/uL (4.8-10.8)
[2018-08-27 20:57] LABS: ALT (SGPT) 16 U/L (8-55); AST (SGOT) 34 U/L (5-34); Albumin 2.4 g/dL (3.4-4.8); Alkaline Phosphatase 174 U/L (40-150); Anion Gap 9 mmol/L (10-20); BUN (Urea Nitrogen) 29 mg/dL (9.8-20.1); Bilirubin, Total 1.2 mg/dL (0.2-1.2); CK (CPK) 66 U/L (29-168); Calc. Creatinine Clearance 0 mL/min (70-130); Calcium 8.8 mg/dL (7.8-10.44); Carbon Dioxide 27 mmol/L (23-31); Chloride 106 mmol/L (98-107); Estimated GFR-MDRD 38; Glucose 129 mg/dL (83-110); Lipase 73 U/L (8-78); Potassium 3.8 mmol/L (3.5-5.1); Protein, Total 7.4 g/dL (6.0-8.3); Sodium 138 mmol/L (136-145)
[2018-08-27 21:01] LABS: CKMB 1.7 ng/mL (0-6.6); Troponin I Less than 0.010 ng/mL (< 0.028)
[2018-08-27 21:29] LABS: Bilirubin Negative (Negative); Blood, Urine Negative (Negative); Clarity CLOUDY (Clear); Glucose, Urine (Dipstick) Negative (Negative); Leukocyte Large (Negative); Nitrite Negative (Negative); Protein, Urine (Dipstick) Negative (Neg-Trace); Specific Gravity, Urine 1.013 (1.002-1.036); pH, Urine 6.5 (5.0-9.0)
[2018-08-27 21:31] LABS: Bacteria/HPF 2+ HPF (None Seen); Hyaline Casts/LPF 7-10 HYALINE CAST LPF (0-3 Hyaline); Pathc Cast-AUWi Flag 2.47 (0-2.49); WBC/HPF 21-50 HPF (0-3)
[2018-08-27] MEDS ORDERED: Lidocaine Viscous Sol 2% 15 ml UD Cup ONE (22:14)
[2018-08-27] MEDS ORDERED: Mag-Al 1200 mg/1200 mg/30 ML UDCUP ONE (22:14)
== END 2018-08-27 22:21 | disposition home or self-care (01) ==
LOC: ERS 19:49
DX: R10.13 Epigastric pain (principal); E11.9 Type 2 diabetes mellitus without complications; I10 Essential (primary) hypertension; Z79.82 Long term (current) use of aspirin
CPT/HCPCS: 36415; 80053; 81003; 81015; 82550; 82553; 83690; 84484; 85025; 93005

== ENCOUNTER 2018-09-11 11:55 | Inpatient (IN) | payer MEDICARE, MEDICAID ==
--- NOTE | 2018-09-11 13:10 | RAD ---
SINGLE VIEW OF THE CHEST: Comparison: 10-30-17 History: Lethargy, confusion, altered mental status. FINDINGS: Single view of the chest shows a normal sized cardiomediastinal silhouette with atherosclerotic calci fications in the aorta. The patient is status post sternotomy. There is no evidence of consolidation, mass, or pleural effusion. IMPRESSION: No evidence of acute cardiopulmonary disease. POS: [facility]
[2018-09-11 13:11] LABS: #Eosinphils 0.1 thou/uL (0.0-0.7); #Lymphocytes 0.7 thou/uL (1.20-3.40); #Monocytes 0.2 thou/uL (0.11-0.59); #Neutrophils 1.6 thou/uL (1.40-6.50); %Basophils 0.3 % (0.0-1.0); %Eosinophils 2.1 % (0.0-10.0); %Lymphocytes 26.9 % (21.0-51.0); %Monocytes 6.9 % (0.0-10.0); %Neutrophils 63.7 % (42.0-75.0); Mean Corpuscular HGB CONC 32.9 g/dL (32.0-36.0); Mean Corpuscular Hemoglobin 32.1 pg (27.0-31.0); Mean Corpuscular Volume 97.6 fL (78.0-98.0); Mean Platelet Volume 9.8 fL (7.4-10.4); Platelet Count 61 thou/uL (130-400); RBC Distribution Width 13.9 % (11.5-14.5); Red Blood Cell (RBC) Count 3.75 mill/uL (4.20-5.40); White Blood Cell (WBC) Count 2.6 thou/uL (4.8-10.8)
--- NOTE | 2018-09-11 13:12 | CT ---
CT BRAIN WITHOUT CONTRAST: Comparison: None. History: Lethargy and increased confusion. Technique: Multiple contiguous axial images were obtained in a CT of the brain without contrast. FINDINGS: There are scattered hypodensities in the subcortical and periventricular white matter, likely seconda ry to small vessel ischemic disease. No large confluent infarction is seen. There is no evidence of h ydrocephalus, intracranial hemorrhage, or extraaxial fluid collection. The calvarium and overlying soft tissues are unremarkable. The visualized paranasal sinuses and masto id air cells are well aerated. IMPRESSION: No evidence of acute intracranial abnormality. POS: [facility]
[2018-09-11 13:30] LABS: ALT (SGPT) 17 U/L (8-55); AST (SGOT) 39 U/L (5-34); Albumin 2.4 g/dL (3.4-4.8); Alkaline Phosphatase 191 U/L (40-150); Anion Gap 11 mmol/L (10-20); BUN (Urea Nitrogen) 26 mg/dL (9.8-20.1); Bilirubin, Total 1.4 mg/dL (0.2-1.2); CK (CPK) 142 U/L (29-168); Calc. Creatinine Clearance 0 mL/min (70-130); Calcium 9.5 mg/dL (7.8-10.44); Carbon Dioxide 20 mmol/L (23-31); Chloride 111 mmol/L (98-107); Estimated GFR-MDRD 42; Globulin 5.5 g/dL (2.4-3.5); Glucose 149 mg/dL (83-110); Lipase 54 U/L (8-78); Potassium 3.8 mmol/L (3.5-5.1); Protein, Total 7.9 g/dL (6.0-8.3); Sodium 138 mmol/L (136-145)
[2018-09-11 13:46] LABS: Bilirubin Negative (Negative); Blood, Urine Negative (Negative); Clarity CLOUDY (Clear); Glucose, Urine (Dipstick) Negative (Negative); Leukocyte Small (Negative); Nitrite Negative (Negative); Protein, Urine (Dipstick) Negative (Neg-Trace); Specific Gravity, Urine 1.013 (1.002-1.036); pH, Urine 6.5 (5.0-9.0)
[2018-09-11 13:47] LABS: Hyaline Casts/LPF 0-3 HYALINE CAST LPF (0-3 Hyaline); Pathc Cast-AUWi Flag 0.43 (0-2.49); RBC/HPF 0-3 HPF (0-3); Squamous Epithelial 0-3 HPF (0-3)
[2018-09-11 13:56] LABS: Bacteria/HPF 4+ HPF (None Seen); Renal Epithelial None Seen HPF (0-3); Transitional Epithelial NONE SEEN HPF (0-3)
[2018-09-11 14:07] LABS: CKMB 2.5 ng/mL (0-6.6)
[2018-09-11] MEDS ORDERED: cefTRIAXone\\ROCEPHIN 1 GM VIAL ONE (14:24)
--- NOTE | 2018-09-11 15:16 | HP ---
PRIMARY CARE PROVIDER: Dr. Santacruz. HISTORY OF PRESENT ILLNESS: [facility] encephalopathy. The patient was brought to the hospital by EMT after being called by the family, the patient has been hypersomnolent, inactive. By history, she has not been reliable with taking her lactulose and other medicines. She was evaluated in the emergency room and found to have elevated ammonia level of about 85, consistent with a diagnosis of hepatic encephalopathy. She is oriented to person only. She is unable to tell me whether she feels good or not. Her at bedside has given me the history that I have obtained. PAST MEDICAL HISTORY: Pertinent for hepatic encephalopathy, on therapy; biliary cirrhosis; hypertension; diabetes mellitus type 2; coronary artery disease, post coronary artery bypass graft; hypothyroidism; post appendectomy; post . HOME MEDICATIONS: The bottles the family brought in contain; 1. Ursodiol 300 mg three times a day. 2. Potassium chloride 10 mEq once a day. 3. Nadolol 20 mg twice a day. 4. Lactulose 30 mL twice a day. 5. Furosemide 60 mg twice a day. 6. Protonix 40 mg twice a day. 7. Aspirin 81 mg a day. ALLERGIES: LISTED HYDROCODONE AND ACETAMINOPHEN. FAMILY HISTORY: Family history of hypertension and diabetes in multiple members. SOCIAL HISTORY: , accompanied by her of 54 years, at bedside. Full code status. 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 She at this time drinks no alcohol, uses no tobacco. REVIEW OF SYSTEMS: Not obtainable due to the patient's obtunded mental status. who is present states she does not have any other symptoms he is aware of. PHYSICAL EXAMINATION: GENERAL: She is arousable, oriented to person. VITAL SIGNS: Blood pressure 141/43, pulse 67, respirations 18, room air saturations 100, temperature 95. HEAD, EYES, EARS, NOSE, AND THROAT: Revealed pupils are equal and round. Extraocular movements are intact. Sclerae are icteric. Tympanic membranes are icteric. Nose is clear. Oral mucous membranes are wet. Dental hygiene is fair. NECK: No jugular venous distention, adenopathy, or thyromegaly. CHEST: Clear to auscultation and percussion. HEART: Had a regular rate and rhythm. First and second heart sounds are clear. No murmurs, no gallops. ABDOMEN: Soft. No palpable hepatosplenomegaly. No masses. No rebound. No bruits. EXTREMITIES: 1+ edema with no cyanosis or clubbing. PULSES: Carotid, radial, femoral, and dorsalis pedis pulses are intact. SKIN: Warm and dry without bruises or rash. HEME/LYMPH: No tender or swollen lymph nodes in the axilla, inguinal, or cervical area. NEUROLOGIC: Obtunded. Cranial nerves 2 through 12 are grossly intact. Deep tendon reflexes are diminished. Moves all extremities. IMAGING STUDIES: Chest x-ray, post median sternotomy. No cardiomegaly, CHF, or infiltrate. EKG has been ordered. Brain CT was done despite diagnosis easily obtained of hepatic encephalopathy, which shows no acute intracranial abnormality. LABORATORY DATA: Complete metabolic profile shows a creatinine of 1.26, BUN of 26, CO2 of 20, chloride 111, sodium 138, potassium 3.8, bilirubin is elevated at 1.4, AST 39, ALT 17. Ammonia level is 83. CBC; white cell count 2.6, platelet count 61.0, hemoglobin 12.0. ADMITTING DIAGNOSES: 1. Hepatic encephalopathy. 2. Biliary cirrhosis. 3. Hypertension. 4. Diabetes mellitus, type 2. 5. Coronary artery disease. 6. Leukopenia. 7. Thrombocytopenia. PLAN: 1. Lactulose 30 g four times a day p.o. If unable to take p.o., will be given per tube. 2. Dr. Evans has been consulted by the emergency room. We will await his input. 3. Accu-Cheks and sliding scale. 4. We will reinstitute nadolol as soon as possible. 5. Electrolytes daily. 6. Check ammonia in the future to establish a baseline after she has been compensated with lactulose. Job ID: [id number]
[2018-09-11] MEDS ORDERED: Ondansetron PF 4 MG/2 ML Vial IVP PRN (16:39)
[2018-09-11] MEDS ORDERED: HumaLOG 300 UNITS/3 ML VIAL SC PRN (16:39)
[2018-09-11] MEDS ORDERED: Dextrose 50% Abboject 50 ML SYRINGE SLOW IVP PRN (16:39)
[2018-09-11] MEDS ORDERED: Dextrose 5% in Water 1,000 ML IV PRN (16:39)
[2018-09-11 16:57] VITALS: BMI 35.9
[2018-09-11] MEDS: Rifaximin 550 MG TAB PO SCH (20:06)
[2018-09-12 06:00] LABS: Anion Gap 9 mmol/L (10-20); BUN (Urea Nitrogen) 27 mg/dL (9.8-20.1); Calc. Creatinine Clearance 51 mL/min (70-130); Calcium 9.1 mg/dL (7.8-10.44); Carbon Dioxide 23 mmol/L (23-31); Chloride 115 mmol/L (98-107); Estimated GFR-MDRD 42; Glucose 126 mg/dL (83-110); Potassium 3.3 mmol/L (3.5-5.1); Sodium 144 mmol/L (136-145)
[2018-09-12 06:13] LABS: #Eosinphils 0.1 thou/uL (0.0-0.7); #Lymphocytes 0.7 thou/uL (1.20-3.40); #Monocytes 0.3 thou/uL (0.11-0.59); #Neutrophils 1.9 thou/uL (1.40-6.50); %Basophils 0.4 % (0.0-1.0); %Eosinophils 1.7 % (0.0-10.0); %Lymphocytes 24.2 % (21.0-51.0); %Monocytes 8.5 % (0.0-10.0); %Neutrophils 65.2 % (42.0-75.0); Hemoglobin 10.8 g/dL (12.0-16.0); Mean Corpuscular HGB CONC 32.6 g/dL (32.0-36.0); Mean Corpuscular Volume 95.2 fL (78.0-98.0); Platelet Count 61 thou/uL (130-400); RBC Distribution Width 14.1 % (11.5-14.5); Red Blood Cell (RBC) Count 3.47 mill/uL (4.20-5.40); White Blood Cell (WBC) Count 2.9 thou/uL (4.8-10.8)
[2018-09-12] MEDS: Rifaximin 550 MG TAB PO SCH ×2 (08:41→19:38)
--- NOTE | 2018-09-12 08:55 | PDOC.PN ---
- Subjective Encounter Start Date: 09/12/18 Encounter Start Time: 08:55 Subjective: alert, oriented - Objective Resuscitation Status - Order Detail: 09/11/18 13:58 Resuscitation Status Routine Resuscitation Status: FULL: Full Resuscitation MAR Reviewed: Yes Vital Signs & Weight: Vital Signs (12 hours) Temp Pulse Resp BP Pulse Ox 09/12/18 07:16 97.8 F 68 16 126/71 98 09/12/18 04:00 98.3 F 73 16 143/74 H 96 09/12/18 00:51 98.7 F 80 16 111/68 95 09/12/18 00:48 98.7 F 80 16 111/68 95 Weight Weight 178 lb Result Diagrams: 09/12/18 04:51 09/12/18 04:51 Additional Labs: Accuchecks 09/12/18 09/11/18 09/11/18 04:19 19:45 16:40 POC Glucose 125 H 159 H 115 H Phys Exam - Physical Examination Neck: no JVD Respiratory: clear to auscultation bilateral Cardiovascular: RRR, no significant murmur Gastrointestinal: soft, positive bowel sounds Musculoskeletal: no edema Dx/Plan (1) Hepatic encephalopathy Code(s): K72.90 - HEPATIC FAILURE, UNSPECIFIED WITHOUT COMA Status: Acute (2) CKD stage 3 due to type 2 diabetes mellitus Code(s): E11.22 - TYPE 2 DIABETES MELLITUS W DIABETIC CHRONIC KIDNEY DISEASE; N18.3 - CHRONIC KIDNEY DISEASE, STAGE 3 (MODERATE) Status: Acute (3) Diabetes Code(s): E11.9 - TYPE 2 DIABETES MELLITUS WITHOUT COMPLICATIONS Status: Acute Qualifiers: Diabetes mellitus type: type 2 Diabetes mellitus complication status: with kidney complications (4) HTN (hypertension) Code(s): I10 - ESSENTIAL (PRIMARY) HYPERTENSION Status: Acute Qualifiers: Hypertension type: essential hypertension Qualified Code(s): I10 - Essential (primary) hypertension Comment: On Nadolol. At goal/ (5) Hyperlipidemia Code(s): E78.5 - HYPERLIPIDEMIA, UNSPECIFIED Status: Acute (6) Hypothyroidism Code(s): E03.9 - HYPOTHYROIDISM, UNSPECIFIED Status: Chronic Qualifiers: Hypothyroidism type: unspecified Qualified Code(s): E03.9 - Hypothyroidism , unspecified Comment: On Levothyroxine. (7) Primary biliary cirrhosis Code(s): K74.3 - PRIMARY BILIARY CIRRHOSIS Status: Acute Comment: On Ursodiol on outpatient basis. Has been restarted (8) CAD (coronary artery disease) Code(s): I25.10 - ATHSCL HEART DISEASE OF [place] CORONARY ARTERY W/O ANG PCTRS Status: Chronic Qualifiers: Coronary Disease-Associated Artery/Lesion type: [place] artery [place] vs. transplanted heart: [place] heart Associated angina: without angina Qualified Code(s): I25.10 - Atherosclerotic heart disease of [place] coronary artery without angina pectoris (9) Thrombocytopenia Code(s): D69.6 - THROMBOCYTOPENIA, UNSPECIFIED Status: Chronic Comment: Has chronic thrombocytopenia, likely 2/2 PBC. - Plan on antibx per GI -: on lactulose, rifaximin -: discuss with GI * .
[2018-09-12] MEDS ORDERED: Non-Formulary Item 1 EACH (Multivitamin [Multi-Vitamin Daily] 1 TABLET) PO SCH (09:00)
[2018-09-12] MEDS ORDERED: Pantoprazole 40 MG VIAL IVP SCH (09:00)
[2018-09-12] MEDS: Nadolol 40 MG TAB PO SCH (10:51)
[2018-09-12] MEDS ORDERED: Lidocaine 1% PF 5 ML VIAL ONE (11:42)
[2018-09-12] MEDS ORDERED: PROPOFOL 200 MG/20 ML VIAL ONE (11:42)
--- NOTE | 2018-09-12 12:27 | CON ---
DATE OF CONSULTATION: TYPE OF CONSULTATION: GI. HISTORY OF PRESENT ILLNESS: Ms. Alana Hamilton is well known to me, 73-year-old with cirrhosis secondary to primary . She has had complications due to ascites in the past as well as grade 1 varices, which have never bled, and hepatic encephalopathy, which has been her main issue. Recently, she saw me in the office a few weeks ago, just a routine followup. She had a normal sonogram with hepatoma screening, negative alpha-fetoprotein, and no signs of gallstones. She has had issues with encephalopathy and being sleepy or sluggish, but is well-maintained and feeling pretty good on lactulose 1 to 2 times per day. More recently, she has not been taking her lactulose regularly. She was in the emergency room about a week ago when she called my office with severe abdominal pain. She was seen in the emergency room at that time on 08/27. The ultrasound the day before had been normal, there was no ascites. She had normal CBC and no change in liver function tests. She was given a GI cocktail at that time and Protonix and sent home on that and when I saw her again she was feeling much better with the Protonix, but one of her daughters had noticed that she had been more sleepy recently. She admitted to only taking lactulose once a day and not even twice and having 2 bowel movements a day. I suggested they increase that to a goal of 3 to 5 bowel movements a day with 3 doses of lactulose per day. Today, she presented to the emergency room, we actually called her office and set up a followup, and the family said she had gone to the emergency room for abdominal pain again. In talking with the patient herself and a male family member in the room as well as the daughter, it seems she will get nauseated at times and not want to eat. She very rarely has pain; however, she had no fever or chills. In the emergency room, she was found to have abnormal vital signs with elevated ammonia level at 83, and she has been admitted for hepatic encephalopathy. There has been no history of fevers. She has not been on any diuretic doses or at least that has not changed recently. She has not had any sleep aids or sleeping medicines per the family. PAST MEDICAL HISTORY: 1. Primary biliary cholangitis with resultant cirrhosis. 2. Hepatic encephalopathy, on therapy, which she is not compliant with. 3. Hypertension. 4. Diabetes. 5. Coronary artery disease. 6. Hypothyroidism. PAST SURGICAL HISTORY: Previous surgeries include, 1. Coronary artery bypass grafting. 2. Appendectomy. 3. . 4. EGD and colonoscopy earlier this year. HOME MEDICATIONS: 1. Ursodiol 300 mg t.i.d. 2. Potassium chloride. 3. Nadolol 20 mg twice a day. 4. Lactulose 30 mL twice a day, which she did not take regularly. 5. Furosemide 60 mg twice a day. 6. Protonix 40 mg twice a day. 7. Aspirin 81 mg a day. ALLERGIES: HYDROCODONE AND ACETAMINOPHEN. FAMILY HISTORY: Negative for liver disease. SOCIAL HISTORY: The patient lives with her of 54 years. She does not drink alcohol or use tobacco. She has a daughter at the bedside too. REVIEW OF SYSTEMS: Negative for dysphagia, odynophagia, headache, fever, or chills. No hematochezia or hematemesis. PHYSICAL EXAMINATION: GENERAL: The patient is somewhat sluggish, but responds to questions. She is alert to person and place. VITAL SIGNS: Temperature 98, pulse 71, blood pressure 123/95. HEENT: She is nonicteric. LUNGS: Clear. HEART: Regular rate and rhythm. No rubs, gallops, or murmurs. ABDOMEN: Soft and nontender without any palpable hepatosplenomegaly, slight asterixis, slight hyperreflexia. LABORATORY DATA: Sodium 138, potassium 3.8, BUN and creatinine 26 and 1.26. Glucose is 149. Bilirubin is 1.4, AST 39, ALT 17, alkaline phosphatase 191. CK 142. BNP 240 on 09/11. Troponin is negative. Albumin 2.4. Lipase 54. TSH 2.78. AFP was 5.6 in 12/2017. ASSESSMENT: Hepatic encephalopathy, this may be related to use of lactulose. Her urine showed bacteria 4+ with white blood cells and few squamous, she likely has urinary tract infection. We will get a urine culture and start antibiotics. Also, we will proceed with an EGD with regard nausea and epigastric pain twice. Job ID: [id number]
[2018-09-12] MEDS ORDERED: Midazolam HCl 2 mg/2 ml Vial ONE (17:31)
[2018-09-12] MEDS ORDERED: Promethazine HCl 25 MG/ML VIAL IM PRN (18:16)
[2018-09-12] MEDS ORDERED: Promethazine HCl 25 MG/ML VIAL SLOW IVP PRN (18:16)
[2018-09-12] MEDS ORDERED: Ondansetron HCl/PF 4 MG/2 ML Vial IVP PRN (18:16)
--- NOTE | 2018-09-13 04:49 | OP ---
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 PROCEDURE PERFORMED: Esophagogastroduodenoscopy. INDICATIONS: 1. Abdominal pain. 2. History of cirrhosis. MEDICATIONS: See Anesthesia record. FINDINGS: After discussion of the risks, benefits and alternatives of the procedure, informed consent was obtained and witnessed. Pre-endoscopic cardiopulmonary examination was satisfactory. Time-out was performed before sedation was achieved. Sedation was achieved with Anesthesia assistance in the endoscopy unit. A Pentax adult upper endoscope was placed into the oropharynx and passed through the cricopharyngeus under direct visualization. The esophageal mucosa appeared normal throughout. I did not detect any esophageal varices. There was a very shallow esophageal ring at the GE junction, which was easily traversed. The endoscope was passed into the stomach. Forward and retroflexed views of the entire gastric mucosa were obtained. There was diffuse [id number] submucosal hemorrhage with characteristic of mosaic pattern, most consistent with portal hypertensive gastropathy, this was most prominent in the gastric fundus and body. Biopsies were obtained from the gastric antrum, body and fundus to rule out H pylori infection. There was no evidence of any ulcerations or any erosions. The endoscope was advanced through the pylorus and into the first and second portions of the duodenum, which appeared normal. There were no gastric varices noted. The upper endoscope was completely withdrawn and the patient allowed to recover. The patient tolerated the procedure well. There were no immediate postprocedure complications. IMPRESSION: 1. Diffuse [id number] portal hypertensive gastropathy. Gastric biopsies obtained to rule out Helicobacter pylori infection. 2. Otherwise normal esophagogastroduodenoscopy. RECOMMENDATIONS: 1. Advance diet. 2. Continue twice daily proton pump inhibitor for now. 3. Follow up pathology and the gastric biopsies. Job ID: [id number]
[2018-09-13] MEDS: Rifaximin 550 MG TAB PO SCH ×2 (08:09→21:00)
[2018-09-13] MEDS: Nadolol 40 MG TAB PO SCH (08:10)
[2018-09-13] MEDS: Multivit, Therapeutic 1 TAB PO SCH (08:10)
[2018-09-13 08:37] LABS: #Eosinphils 0.1 thou/uL (0.0-0.7); #Lymphocytes 0.8 thou/uL (1.20-3.40); #Monocytes 0.2 thou/uL (0.11-0.59); #Neutrophils 1.4 thou/uL (1.40-6.50); %Basophils 1.2 % (0.0-1.0); %Eosinophils 3.3 % (0.0-10.0); %Lymphocytes 30.2 % (21.0-51.0); %Neutrophils 56.3 % (42.0-75.0); Hemoglobin 10.9 g/dL (12.0-16.0); Mean Corpuscular HGB CONC 33.8 g/dL (32.0-36.0); Mean Corpuscular Hemoglobin 32.4 pg (27.0-31.0); Mean Platelet Volume 9.9 fL (7.4-10.4); Platelet Count 54 thou/uL (130-400); RBC Distribution Width 13.9 % (11.5-14.5); Red Blood Cell (RBC) Count 3.35 mill/uL (4.20-5.40); White Blood Cell (WBC) Count 2.5 thou/uL (4.8-10.8)
[2018-09-13 08:58] LABS: ALT (SGPT) 16 U/L (8-55); AST (SGOT) 34 U/L (5-34); Albumin 2.2 g/dL (3.4-4.8); Alkaline Phosphatase 167 U/L (40-150); Anion Gap 7 mmol/L (10-20); BUN (Urea Nitrogen) 24 mg/dL (9.8-20.1); Bilirubin, Total 1.3 mg/dL (0.2-1.2); Calc. Creatinine Clearance 54 mL/min (70-130); Calcium 8.6 mg/dL (7.8-10.44); Carbon Dioxide 23 mmol/L (23-31); Chloride 115 mmol/L (98-107); Estimated GFR-MDRD 45; Globulin 4.5 g/dL (2.4-3.5); Glucose 92 mg/dL (83-110); Potassium 3.5 mmol/L (3.5-5.1); Protein, Total 6.7 g/dL (6.0-8.3); Sodium 141 mmol/L (136-145)
--- NOTE | 2018-09-13 13:17 | PDOC.PN ---
- Subjective Encounter Start Date: 09/13/18 Encounter Start Time: 09:50 Doing better. Still has slight discomfort in the right flank area. Otherwise feels normal. Reports history of intermittent epigastric pain. - Objective Resuscitation Status - Order Detail: 09/11/18 13:58 Resuscitation Status Routine Resuscitation Status: FULL: Full Resuscitation Vital Signs & Weight: Vital Signs (12 hours) Temp Pulse Resp BP Pulse Ox 09/13/18 12:00 97.9 F 61 16 123/74 97 09/13/18 08:00 96 09/13/18 07:21 98.6 F 65 16 122/70 96 09/13/18 04:00 98.4 F 66 16 106/64 96 Weight Weight 178 lb I&O: 09/12/18 09/13/18 09/14/18 06:59 06:59 06:59 Intake Total 240 Balance 240 Result Diagrams: 09/13/18 08:18 09/13/18 08:18 Additional Labs: Accuchecks 09/13/18 09/13/18 09/12/18 12:08 04:22 19:29 POC Glucose 203 H 154 H 85 Phys Exam - Physical Examination Constitutional: NAD Respiratory: no wheezing, no rales, no rhonchi, clear to auscultation bilateral Cardiovascular: RRR, no significant murmur Gastrointestinal: soft, non-tender, no distention Very modest R CVAT Musculoskeletal: no edema Psychiatric: normal affect, A&O x 3 Dx/Plan (1) UTI (urinary tract infection) Status: Acute (2) CKD stage 3 due to type 2 diabetes mellitus Code(s): E11.22 - TYPE 2 DIABETES MELLITUS W DIABETIC CHRONIC KIDNEY DISEASE; N18.3 - CHRONIC KIDNEY DISEASE, STAGE 3 (MODERATE) Status: Acute (3) Hepatic encephalopathy Code(s): K72.90 - HEPATIC FAILURE, UNSPECIFIED WITHOUT COMA Status: Acute (4) Diabetes Code(s): E11.9 - TYPE 2 DIABETES MELLITUS WITHOUT COMPLICATIONS Status: Acute Qualifiers: Diabetes mellitus type: type 2 Diabetes mellitus complication status: with kidney complications (5) Primary biliary cirrhosis Code(s): K74.3 - PRIMARY BILIARY CIRRHOSIS Status: Acute Comment: On Ursodiol on outpatient basis. Has been restarted (6) Portal hypertensive gastropathy Code(s): K76.6 - PORTAL HYPERTENSION; K31.89 - OTHER DISEASES OF STOMACH AND DUODENUM Status: Acute - Plan * Looks like E coli UTI. Given the flank pain, could be pyelo. Will await the sensitivities, switch to appropriate abx and discharge with those. * Encouraged her to stay on the PPI daily. * Continue with Lactulose. She has some at home and prefers it over the one we have. She understands the need to have at least three loose BM's per day.
[2018-09-14] MEDS: Nadolol 40 MG TAB PO SCH (08:16)
[2018-09-14] MEDS: Rifaximin 550 MG TAB PO SCH (08:17)
[2018-09-14] MEDS: Multivit, Therapeutic 1 TAB PO SCH (08:18)
--- NOTE | 2018-09-14 11:58 | EKG ---
Test Reason : Blood Pressure : / mmHG Vent. Rate : 067 BPM Atrial Rate : 067 BPM P-R Int : 154 ms QRS Dur : 076 ms QT Int : 434 ms P-R-T Axes : 087 025 020 degrees QTc Int : 458 ms Normal sinus rhythm Normal ECG Confirmed by ANA FINLEY, PUAL ([id number]), visual effects editor JACQUELINE JAVIER ([id number]) on 09/14/2018 11:57:46 AM Referred By: Confirmed By:PAUL PEREZ MD
[2018-09-14 12:13] VITALS: BP 102/63; TEMP 97.9
--- NOTE | 2018-09-15 21:14 | PRG ---
DATE OF SERVICE: 09/13/2018 SUBJECTIVE: Ms. Hamilton is feeling much better. She is eating better. She seems more alert and awake according to her . She wonders, if she can get out of bed. She has not been out yet. She notes she is having about 2 to 3 bowel movements per day. She is not out of the bed yet. OBJECTIVE: VITAL SIGNS: Temperature 97.9, pulse 61, blood pressure 123/74. GENERAL: She is more alert and awake. EXTREMITIES: She has no asterixis. HEENT: Oropharynx without lesion. NECK: Supple. LUNGS: Clear. LABORATORY DATA: Urine culture, presumptive E. coli. Sensitivity pending. Today, sodium 141, potassium 3.5, BUN and creatinine of 24 and 1.17. Bilirubin 1.3. Alkaline phosphatase 167, albumin 2.6. White count 2.5, hemoglobin 10.0, platelet count 54,000. Glucose 203. ASSESSMENT: 1. Urinary tract infection, likely causing hepatic encephalopathy. 2. Epigastric pain, resolved. 3. Esophagogastroduodenoscopy showed portal hypertensive gastropathy with no overt bleeding and no evidence of ulcerations. 4. Urinary tract infection. 5. Hepatic encephalopathy. RECOMMENDATIONS: 1. Continue Xifaxan p.o. b.i.d., lactulose . 2. We will change Levaquin to p.o. Cultures were pending and we will defer treatment to Internal Medicine. 3. I think she can go back on regular diet. 4. She needs to get out of bed and getting up to chair with the nurse and possibly walking with physical therapy. 5. will see tomorrow. Hopefully, she will be able to go to home in the next few days unless she needs prolonged physical therapy. Job ID: [id number]
--- NOTE | 2018-09-18 08:18 | DIS ---
DATE OF ADMISSION: 09/11/2018 DATE OF DISCHARGE: 09/14/2018 DISCHARGE DIAGNOSES: 1. Hepatic encephalopathy. 2. Urinary tract infection. 3. Chronic kidney disease stage 3. 4. Diabetes mellitus. 5. Biliary cirrhosis. 6. Portal hypertensive gastropathy. HISTORY OF PRESENT ILLNESS: The patient is a 73-year-old female with a history of primary biliary cirrhosis and a history of hepatic encephalopathy, who presented to the hospital via the emergency department. The patient was apparently becoming more hypersomnolent and inactive, which the patient had in the past related to her liver disease. The patient had a workup including labs, which revealed an elevated ammonia level at 85. The patient was felt to have hepatic encephalopathy and was admitted to the hospital. HOSPITAL COURSE: The patient was treated with lactulose and Xifaxan. She also had urine culture positive for E. coli. It was felt that perhaps this infection triggered the hepatic encephalopathy. She was covered with antibiotics appropriate for the E. coli. Her ammonia level came down substantially and her symptoms improved. She was seen in consultation by Gastroenterology. She gave some additional history of some more chronic nausea and epigastric pain and therefore she underwent an EGD which revealed evidence of portal hypertensive gastropathy. Subsequently, the patient was felt to be stable for discharge with improved mentation and improved ammonia level. PHYSICAL EXAMINATION: VITAL SIGNS: On the day of discharge, temperature is 97.9, pulse 50, respirations 18, O2 saturation 96% on room air, and blood pressure was 102/63. GENERAL: The patient was awake, alert, oriented, pleasant, and cooperative. HEART: Regular rate and rhythm without murmurs, gallops, or rubs. LUNGS: Clear to auscultation bilaterally with good chest wall expansion and air exchange. ABDOMEN: Soft, nontender, and nondistended. Positive bowel sounds. No masses. No organomegaly. EXTREMITIES: Warm and dry. DISPOSITION: The patient is discharged to home. She is to resume her usual diet and activity level. MEDICATIONS: She will be on Cipro 250 mg one p.o. b.i.d. She will continue with her home medications to include; 1. Levothyroxine. 2. Actigall 300 mg one p.o. t.i.d. 3. Lactulose 20 g p.o. b.i.d. 4. Zofran 4 mg q.6 hours p.r.n. 5. Multivitamin 1 p.o. daily. 6. Potassium chloride 10 mEq p.o. daily. 7. Lasix 40 mg p.o. b.i.d. 8. Corgard 20 mg p.o. daily. 9. Aspirin 81 mg daily. 10. Protonix 40 mg p.o. b.i.d. FOLLOWUP: The patient is to follow up with Dr. Marco A Villalba and Dr. Santacruz. She should return to the emergency department should she have any problems prior to that time. Job ID: [id number]
== END 2018-09-14 12:16 | disposition home or self-care (01) | DRG 442 ==
LOC: ERS 11:55 → T4-B 13:34
PROVIDERS: ADMIT Internal Medicine; ATTEND Internal Medicine
PROC: 0DB78ZX Excision of Stomach, Pylorus, Via Natural or Artificial Opening Endoscopic, Diagnostic (ICD-10-PCS; principal; 2018-09-12)
DX: K72.90 Hepatic failure, unspecified without coma (principal); K76.6 Portal hypertension; N39.0 Urinary tract infection, site not specified; K74.5 Biliary cirrhosis, unspecified; I25.10 Atherosclerotic heart disease of native coronary artery without angina pectoris; E03.9 Hypothyroidism, unspecified; D72.819 Decreased white blood cell count, unspecified; D69.6 Thrombocytopenia, unspecified; K31.89 Other diseases of stomach and duodenum; E11.22 Type 2 diabetes mellitus with diabetic chronic kidney disease; I12.9 Hypertensive chronic kidney disease with stage 1 through stage 4 chronic kidney disease, or unspecified chronic kidney disease; N18.3 Chronic kidney disease, stage 3 (moderate); E78.5 Hyperlipidemia, unspecified; B96.20 Unspecified Escherichia coli [E. coli] as the cause of diseases classified elsewhere; Z79.82 Long term (current) use of aspirin; Z95.1 Presence of aortocoronary bypass graft
CPT/HCPCS: 36415; 36416; 51701; 70450; 71045; 80048; 80053; 81003; 81015; 82140; 82550; 82553; 83690; 83880; 84443; 84484; 85025; 87040; 87077; 87086; 87186; 88305; 88312; 93005; 96374; A4353; C9113; J0696; J1956; J2001; J2250; J2405; J2704

== ENCOUNTER 2019-03-07 09:49 | Emergency (ER) | payer MEDICARE, MEDICAID | END 2019-03-07 11:43 | disposition home or self-care (01) | LOC: ERS 09:49 | DX: K06.8 Other specified disorders of gingiva and edentulous alveolar ridge (principal); E11.9 Type 2 diabetes mellitus without complications; I10 Essential (primary) hypertension; E03.9 Hypothyroidism, unspecified; F32.9 Major depressive disorder, single episode, unspecified; Z79.899 Other long term (current) drug therapy ==

== ENCOUNTER 2019-04-01 19:30 | Outpatient (CLI) | payer MEDICARE, MEDICAID | END 2019-04-01 19:31 | disposition home or self-care (01) | LOC: SLEEPLAB 19:30 | PROVIDERS: ATTEND Family Medicine | DX: G47.33 Obstructive sleep apnea (adult) (pediatric) (principal); G47.10 Hypersomnia, unspecified; G47.9 Sleep disorder, unspecified; R53.83 Other fatigue; G31.84 Mild cognitive impairment of uncertain or unknown etiology; E66.9 Obesity, unspecified; R06.83 Snoring; F32.9 Major depressive disorder, single episode, unspecified; I11.0 Hypertensive heart disease with heart failure; I50.9 Heart failure, unspecified; I25.10 Atherosclerotic heart disease of native coronary artery without angina pectoris; E11.9 Type 2 diabetes mellitus without complications | CPT/HCPCS: 95810 ==

== ENCOUNTER 2019-07-02 20:30 | Outpatient (CLI) | payer MEDICARE, MEDICAID | END 2019-07-02 20:31 | disposition home or self-care (01) | LOC: SLEEPLAB 20:30 | PROVIDERS: ATTEND Family Medicine | DX: G47.33 Obstructive sleep apnea (adult) (pediatric) (principal); G47.10 Hypersomnia, unspecified; R53.83 Other fatigue; E66.9 Obesity, unspecified; R06.83 Snoring; F32.9 Major depressive disorder, single episode, unspecified; I11.0 Hypertensive heart disease with heart failure; I50.9 Heart failure, unspecified; I25.10 Atherosclerotic heart disease of native coronary artery without angina pectoris; E11.9 Type 2 diabetes mellitus without complications | CPT/HCPCS: 95811 ==

== ENCOUNTER 2019-12-11 08:23 | Outpatient (CLI) | payer MEDICARE, MEDICAID ==
--- NOTE | 2019-12-11 10:37 | ULT ---
HEPATIC ULTRASOUND WITH BRISENO SCALE AND COLOR FLOW AND SPECTRAL DOPPLER IMAGING: Date: 12/11/2019 HISTORY: Cirrhosis of the liver. FINDINGS: The liver demonstrates a coarse echogenicity and a 3.0 cm hypoechoic mass in the right lobe. No intra hepatic ductal dilatation is seen. The spleen is borderline, measuring 13.0 cm in length, with multiple echogenic foci consistent with o ld granulomatous disease. No gallstones, gallbladder wall thickening, or pericholecystic fluid seen. The common duct measures 4 .0 mm in diameter. The pancreas is not well visualized due to overlying bowel gas. Hepatic, portal, a nd splenic vasculature demonstrate normal flow and spectral waveforms. No free fluid is seen. IMPRESSION: 1. Cirrhosis of the liver with a 3.0 cm right liver lobe mass. Correlation with serum AFP is recomme nded to evaluate for HCC. 2. Borderline splenomegaly. POS: [facility]
== END 2019-12-11 08:24 | disposition home or self-care (01) ==
LOC: BICULT 08:23
PROVIDERS: ATTEND Physician Assistant Medical
DX: K72.90 Hepatic failure, unspecified without coma (principal); K74.3 Primary biliary cirrhosis; K74.60 Unspecified cirrhosis of liver; R16.0 Hepatomegaly, not elsewhere classified
CPT/HCPCS: 76705

== ENCOUNTER 2019-12-20 18:22 | Inpatient (IN) | payer MEDICARE, MEDICAID ==
[2019-12-20 19:20] LABS: Hemoglobin 10.8 g/dL (12.0-16.0); Mean Corpuscular HGB CONC 34.2 g/dL (32.0-36.0); Mean Corpuscular Hemoglobin 33.6 pg (27.0-31.0); Mean Corpuscular Volume 98.4 fL (78.0-98.0); Mean Platelet Volume 9.6 fL (7.4-10.4); Platelet Count 48 thou/uL (130-400); RBC Distribution Width 13.6 % (11.5-14.5); Red Blood Cell (RBC) Count 3.22 mill/uL (4.20-5.40); White Blood Cell (WBC) Count 2.6 thou/uL (4.8-10.8)
[2019-12-20 19:41] LABS: Band 24 % (5-11); Eosinophils 1 % (0-10); Lymphocytes 27 % (21-51); MDiff Complete? YES; Macrocytosis SLIGHT = 6-15 cells (100X) (0-5/hpf); Monocytes 13 % (0-10); Neutrophil 35 % (42-75); Platelet Morphology Comment Appears Decreased; Polychromasia SLIGHT = 2-3 cells (100X) (0-2/hpf)
[2019-12-20 19:42] LABS: ALT (SGPT) 27 U/L (8-55); AST (SGOT) 74 U/L (5-34); Albumin 2.5 g/dL (3.4-4.8); Alkaline Phosphatase 218 U/L (40-110); Anion Gap 12 mmol/L (10-20); BUN (Urea Nitrogen) 25 mg/dL (9.8-20.1); Bilirubin, Total 1.8 mg/dL (0.2-1.2); Calc. Creatinine Clearance 0 mL/min (70-130); Calcium 8.3 mg/dL (7.8-10.44); Carbon Dioxide 21 mmol/L (23-31); Chloride 105 mmol/L (98-107); Estimated GFR-MDRD 43; Globulin 4.8 g/dL (2.4-3.5); Glucose 97 mg/dL (83-110); Potassium 4.1 mmol/L (3.5-5.1); Protein, Total 7.3 g/dL (6.0-8.3); Sodium 134 mmol/L (136-145)
[2019-12-20] MEDS ORDERED: Piperacillin/Tazobactam 4.5 GM VIAL ONE (19:54)
[2019-12-20] MEDS ORDERED: Vancomycin 1 GM/200 ML BAG ONE (19:54)
--- NOTE | 2019-12-20 19:56 | RAD ---
Portable frontal chest radiograph: 12/20/2019 COMPARISON: 09/11/2018 HISTORY: Fever, cough FINDINGS: Stable midline sternotomy wires, Mediastinal clips, and aortic arch atherosclerotic calcifi cation. No pneumothorax, pleural fluid, focal consolidation, or alveolar edema. Impression: No acute findings.
[2019-12-20] MEDS ORDERED: Guaifenesin DM 100-10/5 ML UDCUP PO PRN (20:02)
[2019-12-20] MEDS ORDERED: Acetaminophen 325 MG TAB PO PRN (20:02)
[2019-12-20] MEDS ORDERED: Ondansetron PF 4 MG/2 ML Vial IVP PRN (20:02)
[2019-12-20] MEDS ORDERED: Cefepime 2 GM in Sodium Chloride 0.9% 100 ML IVPB SCH (21:00)
[2019-12-20] MEDS ORDERED: Azithromycin 500 MG in Sodium Chloride 0.9% 250 ML 250 ML IVPB SCH (22:00)
[2019-12-20] MEDS ORDERED: Ibuprofen 800 MG TAB ONE (22:34)
[2019-12-20 22:44] LABS: Bilirubin Negative (Negative); Blood, Urine Moderate (Negative); Clarity Hazy (Clear); Glucose, Urine (Dipstick) Negative (Negative); Leukocyte Negative (Negative); Nitrite Positive (Negative); Protein, Urine (Dipstick) Trace mg/dL (Neg-Trace)
[2019-12-20 22:48] LABS: Bacteria/HPF 4+ HPF (None Seen); RBC/HPF 0-3 HPF (0-3); WBC/HPF 0-3 HPF (0-3)
[2019-12-21 00:05] VITALS: BMI 35.9
[2019-12-21] MEDS: Sodium Chloride 0.9% 1,000 ML IV SCH (00:11)
[2019-12-21] MEDS: Famotidine/PF 20 mg/2ml Vial SLOW IVP SCH ×2 (00:40→09:40)
[2019-12-21] MEDS: Cefepime 2 GM in Sodium Chloride 0.9% 100 ML IVPB SCH ×2 (02:03→13:56)
[2019-12-21] MEDS: Ondansetron PF 4 MG/2 ML Vial IVP PRN ×2 (02:42→09:40)
--- NOTE | 2019-12-21 03:02 | HP ---
CHIEF COMPLAINT: Fever and cough. HISTORY OF PRESENT ILLNESS: Ms. Hamilton is a 74-year-old female with past medical history of liver cirrhosis, chronic kidney disease, diabetes, hypertension, hypothyroidism, among others; presents to the emergency room with cough and fever. Also, the patient has been having chills, headache. Workup in the emergency room, the patient was febrile with a temperature of 102.7. The patient is leukopenic with WBC count of 2.6. Thrombocytopenic with a platelet count of 48. Septic workup done in the ED. Chest x-ray showed possible pneumonia. The patient is being admitted to hospital for further management. IV antibiotics started. PAST MEDICAL HISTORY: As mentioned above in history of present illness. SURGICAL HISTORY: 1. Appendectomy. 2. Coronary artery bypass graft surgery. 3. section x5. PAST PSYCHIATRIC HISTORY: Depression. SOCIAL HISTORY: Denies alcohol use. No smoking history. FAMILY HISTORY: Reviewed and noncontributory. HOME MEDICATIONS: Please see home medication reconciliation form for updated medications. ALLERGIES: ALLERGIC TO HYDROCODONE. REVIEW OF SYSTEMS: Review of 14 systems negative except what is mentioned in history of present illness. PHYSICAL EXAMINATION: GENERAL: The patient is awake, alert, in moderate respiratory distress. VITAL SIGNS: Blood pressure 131/63, temperature 102.7, pulse is 68, respiratory rate is 20. HEAD AND NECK: Normocephalic, atraumatic. NECK: Supple. No JVD. CHEST: Coarse bilateral breath sounds. HEART: S1, S2. Regular. ABDOMEN: Soft, nontender. Bowel sounds present. NEUROLOGIC: Awake, alert, and oriented. PSYCHIATRIC: Unable to assess. EXTREMITIES: No clubbing. No cyanosis. LABORATORY DATA: Sodium 134, BUN is 25, creatinine 1.2. Bilirubin 1.8. WBC count 2.6, hemoglobin 10.8, platelets 48. Lactic acid is 1.5. Chest x-ray as mentioned above in history of present illness. ASSESSMENT: 1. Sepsis due to acute pneumonia. 2. Pneumonia. 3. Liver cirrhosis. 4. Chronic kidney disease. 5. Diabetes mellitus type 2. 6. Hypertension. PLAN: 1. Admit. 2. Septic workup including blood cultures. 3. IV antibiotics. 4. Cautious IV fluid hydration, reassess in a.m. 5. Reconcile home medications. 6. DVT prophylaxis as appropriate. 7. Expected length of stay, 2 midnights or more. Job ID: [id number]
[2019-12-21 06:20] LABS: ALT (SGPT) 27 U/L (8-55); AST (SGOT) 69 U/L (5-34); Alkaline Phosphatase 171 U/L (40-110); Anion Gap 10 mmol/L (10-20); BUN (Urea Nitrogen) 26 mg/dL (9.8-20.1); Bilirubin, Total 1.4 mg/dL (0.2-1.2); Calc. Creatinine Clearance 50 mL/min (70-130); Calcium 7.6 mg/dL (7.8-10.44); Carbon Dioxide 21 mmol/L (23-31); Chloride 110 mmol/L (98-107); Estimated GFR-MDRD 42; Globulin 3.9 g/dL (2.4-3.5); Glucose 91 mg/dL (83-110); Potassium 3.6 mmol/L (3.5-5.1); Protein, Total 5.9 g/dL (6.0-8.3); Sodium 137 mmol/L (136-145)
[2019-12-21 08:12] LABS: Band 10 % (5-11); Hemoglobin 9.6 g/dL (12.0-16.0); Lymphocytes 19 % (21-51); MDiff Complete? YES; Macrocytosis SLIGHT = 6-15 cells (100X) (0-5/hpf); Mean Corpuscular HGB CONC 34.6 g/dL (32.0-36.0); Mean Corpuscular Hemoglobin 34.2 pg (27.0-31.0); Mean Corpuscular Volume 98.8 fL (78.0-98.0); Mean Platelet Volume 9.6 fL (7.4-10.4); Monocytes 9 % (0-10); Neutrophil 62 % (42-75); Platelet Count 36 thou/uL (130-400); Platelet Morphology Comment Appears Decreased; RBC Distribution Width 13.7 % (11.5-14.5); White Blood Cell (WBC) Count 1.3 thou/uL (4.8-10.8)
[2019-12-21] MEDS ORDERED: Prevnar 13-Val Conj/PF 0.5 ML SYRINGE IM ONE (09:00)
[2019-12-21] MEDS ORDERED: Insulin Regular 300 UNITS/3 ML VIAL SC PRN ×2 (11:09)
[2019-12-21] MEDS ORDERED: Dextrose 50% Abboject 50 ML SYRINGE SLOW IVP PRN (11:09)
[2019-12-21] MEDS ORDERED: Dextrose 5% in Water 1,000 ML IV PRN (11:09)
[2019-12-21] MEDS ORDERED: Vancomycin 1 GM in Premix Bag 1 BAG IVPB SCH (11:15)
[2019-12-21] MEDS ORDERED: Acetaminophen 325 MG TAB PO PRN (11:17)
--- NOTE | 2019-12-21 11:50 | CT ---
CT abdomen and pelvis noncontrast HISTORY: Flank pain. FINDINGS: No comparison. Each renal collecting system, ureter, and urinary bladder are decompressed without stone evident. There is prominent calcification throughout the arterial structures. Prominent degenerative changes l umbar spine. Small amount of bilateral pleural fluid and dependent bibasilar atelectasis. Lack of contrast limits evaluation for other abnormalities. Small hyperdense stones are present withi n the dependent portion of the gallbladder neck. Gallbladder is distended up to 8.1 cm. Subtle haziness within the fat immediately adjacent to the gallbladder wall. Biliary system not seen to be s ignificantly dilated. Spleen measures up to 15.5 cm length. No evidence of bowel obstruction. IMPRESSION: No CT evidence of urinary tract obstruction or calcification. Cholelithiasis. Gallbladder distention and possible subtle wall inflammation. Clinical correlation re garding other signs and symptoms of acute cholecystitis is required. No evidence of central biliary obstruction. Small bilateral pleural effusions. Moderate splenomegaly. Consider portal venous hypertension. Prominent atherosclerosis.
[2019-12-21 14:03] LABS: Legionella Urinary Ag Negative (Negative); Strep pneumo Urine Ag NEGATIVE (NEGATIVE)
--- NOTE | 2019-12-21 15:33 | CON ---
DATE OF CONSULTATION: 12/21/2019 REASON FOR CONSULTATION: Fever. HISTORY OF PRESENT ILLNESS: A 74-year-old with history of type 2 diabetes, hypertension, and primary biliary cholangitis with cirrhosis, managed with Ursodiol, who presented for evaluation of fever up to 102.9 on admission. Reportedly, she has had a fever for the past week and a half before admission, and eventually decided to come for evaluation because of persistence. She had some headaches and also noticed a cough with clear sputum production, some myalgias. No back pain. Some abdominal pain in the right upper quadrant. No genitourinary symptoms or diarrhea. No bleeding. No neurological symptoms. PAST MEDICAL HISTORY: Type 2 diabetes, primary biliary cholangitis with cirrhosis, hypertension, episodes of hepatic encephalopathy in the past, depression. PAST SURGICAL HISTORY: Appendectomy, coronary bypass graft surgery, . SOCIAL HISTORY: Never smoker. No alcoholic beverage use. Lives in [place] by herself and her sister helps her. ALLERGIES: HYDROCODONE WITH NOT TRUE HYPERSENSITIVITY REACTION. MEDICATIONS: 1. Azithromycin. 2. Cefepime. 3. Robitussin. 4. Insulin. 5. Zofran. 6. Vancomycin. FAMILY HISTORY: Noncontributory. PHYSICAL EXAMINATION: VITAL SIGNS: Since admission, T-max 100.1, now 98.3; blood pressure 120/68; pulse 55; respirations 18; and O2 saturation 99%. SKIN: Peripheral IV access. She is voiding in the bedpan. HEENT: Ocular movements conjugate. Sclerae are white. Pupils are equal. Conjunctivae are normal. Oral cavity with only a few remaining teeth with marked decay and gum disease. Oral mucosa normal. NECK: Supple. No jugular vein distention. LUNGS: Symmetric air entry with no crackles or wheezing. HEART: S1 and S2. Regular rate. No S3 or S4. ABDOMEN: Moderate tenderness in the right upper quadrant. No bladder distention. EXTREMITIES: No joint inflammatory activity. Plantar responses are flexor. No clonus. No edema. Pulses are 1+ in dorsalis pedis. Moves all extremities equally. Cognitive function appears to be preserved. Asterixis was negative. LABORATORY DATA: White cell count 2.6 and 1.3, hemoglobin 10.8, platelets 48,000 on arrival, 24% bands down to 10% at this moment. Creatinine was 1.24. Bilirubin is 1.8 and 1.4, AST 74, albumin 2.5. Urinalysis was relatively normal. Legionella pneumophila and strep pneumoniae antigen negative. IMAGING STUDIES: Abdomen and pelvis CT with gallbladder distention, possible subtle wall inflammation, splenomegaly, small bilateral pleural effusions. Chest x-ray without any infiltrates. ASSESSMENT: 1. Primary biliary cholangitis with liver cirrhosis. 2. Fever. DISCUSSION: The patient was exposed to her sister, and she apparently had a fever, it is more or less same time that she had, there is a possibility of a viral illness, transmissible within the family particularly influenza A is considered. The patient has no travel history, and lungs are normal. O2 saturations are high, so I do not think that we need to worry about the epidemic coronavirus problem in this patient at the moment. The right upper quadrant tenderness plus the findings on CT scan would be worrisome for cholecystitis, so we need to maybe evaluate an ultrasound down the road depending on clinical progress. We will check respiratory virus PCR and continue cefepime, discontinue the remainder of her antimicrobials for now. Job ID: [id number]
[2019-12-21] MEDS ORDERED: Vancomycin HCl 750 MG in Sodium Chloride 0.9% 250 ML 250 ML IVPB SCH (20:00)
[2019-12-21] MEDS: Ursodiol 300 MG CAP PO SCH (20:41)
[2019-12-22] MEDS: Sodium Chloride 0.9% 1,000 ML IV SCH (01:00)
[2019-12-22] MEDS: Cefepime 2 GM in Sodium Chloride 0.9% 100 ML IVPB SCH ×2 (02:01→16:02)
[2019-12-22 04:51] LABS: INR-International Normal Ratio 1.8; PTT 46.9 SEC (22.9-36.1); Prothrombin Time 20.4 SEC (12.0-14.7)
[2019-12-22 05:19] LABS: CRP (Inflammatory) 2.03 mg/dL (= or < 0.5); Calcium 7.6 mg/dL (7.8-10.44); Chloride 112 mmol/L (98-107); Potassium 3.6 mmol/L (3.5-5.1); Sodium 138 mmol/L (136-145)
[2019-12-22 05:27] LABS: Globulin 3.9 g/dL (2.4-3.5); Glucose 71 mg/dL (83-110); Protein, Total 5.9 g/dL (6.0-8.3)
[2019-12-22 05:28] LABS: Anion Gap 9 mmol/L (10-20); Band 22 % (5-11); Carbon Dioxide 20 mmol/L (23-31); Hemoglobin 10.3 g/dL (12.0-16.0); Lymphocytes 15 % (21-51); MDiff Complete? YES; Mean Corpuscular Hemoglobin 33.7 pg (27.0-31.0); Mean Corpuscular Volume 99.4 fL (78.0-98.0); Mean Platelet Volume 10.5 fL (7.4-10.4); Monocytes 5 % (0-10); Neutrophil 58 % (42-75); Platelet Count 38 thou/uL (130-400); Platelet Morphology Comment Appears Decreased; RBC Distribution Width 13.6 % (11.5-14.5); Red Blood Cell (RBC) Count 3.05 mill/uL (4.20-5.40); White Blood Cell (WBC) Count 1.7 thou/uL (4.8-10.8)
[2019-12-22 05:29] LABS: Alkaline Phosphatase 173 U/L (40-110); Bilirubin, Total 1.4 mg/dL (0.2-1.2)
[2019-12-22 05:30] LABS: Calc. Creatinine Clearance 51 mL/min (70-130); Estimated GFR-MDRD 43
[2019-12-22 05:31] LABS: BUN (Urea Nitrogen) 23 mg/dL (9.8-20.1)
[2019-12-22 05:32] LABS: ALT (SGPT) 32 U/L (8-55); AST (SGOT) 89 U/L (5-34); Magnesium 1.8 mg/dL (1.6-2.6)
[2019-12-22 05:33] LABS: Lipase 44 U/L (8-78)
[2019-12-22] MEDS: Levothyroxine Sodium 25 MCG TAB PO SCH (05:46)
--- NOTE | 2019-12-22 07:40 | PDOC.HOSPP ---
- Subjective Encounter Date: 12/21/19 Encounter Time: 16:00 Subjective: Patient seen and examined for Sepsis. Feels gen weak. Cough with some production. No fever or chills. No other complaints. No overnight events - Objective Vital Signs & Weight: Vital Signs (12 hours) Temp Pulse Resp BP Pulse Ox 12/22/19 07:26 97 12/22/19 07:20 98.5 F 50 L 20 136/55 L 97 12/22/19 05:05 98.8 F 53 L 16 126/57 L 96 12/22/19 00:10 98.2 F 54 L 16 134/65 96 12/21/19 20:00 98.3 F 54 L 18 134/66 96 Weight Weight 177 lb 9.6 oz I&O: 12/21/19 12/22/19 12/23/19 06:59 06:59 06:59 Intake Total 2510 Balance 2510 Result Diagrams: 12/22/19 04:33 12/22/19 04:33 Additional Labs: Accuchecks 12/22/19 12/22/19 12/21/19 06:00 05:30 20:40 POC Glucose 162 H 67 L 129 H 12/21/19 12/21/19 17:07 11:16 POC Glucose 102 109 Radiology Reviewed by me: Yes (CT abd - gall bladder wall thickening) Hospitalist ROS - Review of Systems Cardiovascular: denies: chest pain, palpitations, orthopnea, paroxysmal noc. dyspnea, edema, light headedness, other Gastrointestinal: denies: nausea, vomiting, abdominal pain, diarrhea, constipation, melena, hematochezia, other - Medication Medications: Active Medications Generic Name Dose Route Start Last Admin Trade Name Freq PRN Reason Stop Dose Admin Dextrose/Water 25 gm 12/21/19 11:09 12/22/19 05:33 Dextrose 50% SLOW IVP 25 gm PRN PRN Administration Hypoglycemia Sodium Chloride 1,000 mls @ 50 mls/hr 12/20/19 20:15 12/22/19 01:00 Normal Saline 0.9% IV 1,000 mls .Q20H DYLAN Administration Cefepime HCl 2 gm/ Sodium 100 mls @ 200 mls/hr 12/21/19 02:00 12/22/19 02:01 Chloride IVPB 100 mls 0200,1400 DYLAN Administration Lactulose 20 gm 12/21/19 21:00 12/21/19 20:41 Lactulose PO 20 gm BID [facility] Administration Levothyroxine Sodium 25 mcg 12/22/19 06:00 12/22/19 05:46 Synthroid PO Not Given 0600 [facility] Ondansetron HCl 4 mg 12/21/19 02:14 12/21/19 09:40 Zofran IVP 4 mg Q6H PRN Administration Nausea/Vomiting Pantoprazole Sodium 40 mg 12/21/19 21:00 12/21/19 20:41 Protonix PO 40 mg BID DYLAN Administration Ursodiol 300 mg 12/21/19 21:00 12/21/19 20:41 Actigal PO 300 mg TID DYLAN Administration - Exam General Appearance: NAD Neck: supple, no JVD Heart: no murmur, no gallops, no rubs, normal peripheral pulses Respiratory: no wheezes, no rales, normal chest expansion, rhonchi Gastrointestinal: soft, non-distended, normal bowel sounds, tender to palpation (RUQ) Extremities: no cyanosis, no clubbing Neurological: no new deficit Psychiatric: normal affect, A&O x 3 Hosp A/P - Plan DVT proph w/SCDs Sepsis ?etio Cholelithiasis - r/o cholecystitis Liver Cirrhosis with pancytopenia/coagulopathy/portal HTN Obesity BMI 35.9 DM2 Hyponatremia HTN CKD 3 HLD PLAN: Cont Cefepime RUQ USG ID input appreciated CT abd reviewed Cont sliding scale cultures negative so far
[2019-12-22] MEDS: Ursodiol 300 MG CAP PO SCH ×3 (08:17→21:05)
[2019-12-22] MEDS: Potassium Chloride 10 MEQ TAB PO SCH (08:19)
[2019-12-22] MEDS: Nadolol 40 MG TAB PO SCH (08:19)
[2019-12-22] MEDS: Aspirin Chewable 81 MG TAB PO SCH (08:19)
--- NOTE | 2019-12-22 08:25 | ULT ---
RIGHT UPPER QUADRANT ULTRASOUND: INDICATION: Abnormal CT and fever. COMPARISON: Noncontrast CT of the abdomen and pelvis dated 12/21/2019 and a hepatic Doppler ultrasound dated 020. FINDINGS: There is cirrhotic morphology to the liver. The hypoechoic mass seen within the right hepatic lobe a djacent to the gallbladder fossa is stable measuring 3.6 x 2.3 cm. The gallbladder is mildly distend ed with layered stones within the neck. There is gallbladder wall thickening. No sonographic Quan 's sign is reported. No pericholecystic fluid is evident. The common bile duct measures 3.6 mm. Th e right kidney measured 9 x 4.2 x 6 cm. The pancreas was largely obscured. IMPRESSION: 1. Cirrhosis of the liver with right hepatic lobe mass. Further evaluation with a multiphase CT uti lizing liver mass protocol is recommended for additional characterization. 2. Gallbladder wall thickening with cholelithiasis. A component of gallbladder wall thickening can be related to gallbladder wall edema from the patient's cirrhosis. The findings are equivocal by rig ht upper quadrant ultrasound for acute calculous cholecystitis. There was no report of a sonographic Quan's sign. POS: [facility]
[2019-12-22] MEDS ORDERED: D5 1/2 NS w/20 mEq KCL 1,000 ML IV SCH (10:15)
--- NOTE | 2019-12-22 16:02 | NM ---
HEPATOBILIARY SCAN: HISTORY:Cholelithiasis with gallbladder wall thickening. Clinical concern for acute cholecystitis RADIOPHARMACEUTICAL: 4.8 mCi Technetium 99m Mebrofenin injected intravenously IV CCK-8: The patient was pretreated with 1.6 mcg 30 minutes prior to injection of the radiopharmaceu tical. The dose was repeated on filling of the gallbladder to evaluate gallbladder contractility. FINDINGS: There is normal tracer extraction by the liver with normal excretion into the biliary tracts and norm al filling of the gallbladder. The calculated gallbladder ejection fraction following an IV infusion of CCK-8 measures 58%. Small nola wel activity is noted following CCK patient administration. IMPRESSION:Normal exam.
--- NOTE | 2019-12-22 16:40 | PRG ---
DATE OF SERVICE: 12/22/2019 SUBJECTIVE: The patient is feeling a little better. No headaches. No respiratory symptoms or abdominal pain. OBJECTIVE: VITAL SIGNS: She has been afebrile. Blood pressure 160/60, pulse is 56, respirations 18. GENERAL: Awake, alert. LUNGS: Symmetric. Clear breath sounds. HEART: S1 and S2, regular rate. ABDOMEN: Abdominal pain is improved. LABORATORY DATA: White cell count 1.7, hemoglobin 10, platelets 38,000. Creatinine 1.22. Influenza respiratory virus PCR panel was positive for influenza A. ASSESSMENT AND DISCUSSION: Chronic biliary cholangitis with fever due to influenza A. Discontinue antimicrobial therapy. Continue Tamiflu, discharge planning. Job ID: [id number]
[2019-12-22] MEDS ORDERED: Oseltamivir 75 MG CAP PO SCH (17:00)
--- NOTE | 2019-12-22 17:37 | PDOC.HOSPP ---
- Subjective Encounter Date: 12/22/19 Encounter Time: 11:00 Subjective: Patient seen and examined for Sepsis. c/o RUQ pain with dry cough. Feels gen weak. No overnight events - Objective Vital Signs & Weight: Vital Signs (12 hours) Temp Pulse Resp BP Pulse Ox 12/22/19 15:45 98.0 F 56 L 18 169/60 H 99 12/22/19 10:57 98.1 F 47 L 20 144/70 H 98 12/22/19 08:36 97 12/22/19 07:20 98.5 F 50 L 20 136/55 L 97 Weight Admit Weight 177 lb 9.6 oz Weight 177 lb 9.6 oz I&O: 12/21/19 12/22/19 12/23/19 06:59 06:59 06:59 Intake Total 2510 Balance 2510 Result Diagrams: 12/22/19 04:33 12/22/19 04:33 Additional Labs: Accuchecks 12/22/19 12/22/19 12/22/19 16:31 11:56 09:48 POC Glucose 76 79 77 12/22/19 12/22/19 12/21/19 06:00 05:30 20:40 POC Glucose 162 H 67 L 129 H Radiology Reviewed by me: Yes (CXR - no infiltrate) Hospitalist ROS - Review of Systems Respiratory: reports: cough, dry. denies: shortness of breath, hemoptysis, SOB with excertion, pleuritic pain, sputum, wheezing, other Cardiovascular: denies: chest pain, palpitations, orthopnea, paroxysmal noc. dyspnea, edema, light headedness, other - Medication Medications: Active Medications Generic Name Dose Route Start Last Admin Trade Name Freq PRN Reason Stop Dose Admin Aspirin 81 mg 12/22/19 09:00 12/22/19 08:19 Aspirin Chewable PO Not Given DAILY DYLAN Dextrose/Water 25 gm 12/21/19 11:09 12/22/19 05:33 Dextrose 50% SLOW IVP 25 gm PRN PRN Administration Hypoglycemia Potassium Chloride/Dextrose/Sod Cl 1,000 mls @ 70 mls/hr 12/22/19 10:15 12/21 11:09 D5 1/2 Ns W/20 Meq Kcl IV 1,000 mls .[id number] DYLAN Administration Lactulose 20 gm 12/21/19 21:00 12/22/19 08:17 Lactulose PO Not Given BID [facility] Levothyroxine Sodium 25 mcg 12/22/19 06:00 12/22/19 05:46 Synthroid PO Not Given 0600 DYLAN Nadolol 20 mg 12/22/19 09:00 12/22/19 08:19 Corgard PO Not Given DAILY DYLAN Ondansetron HCl 4 mg 12/21/19 02:14 12/21/19 09:40 Zofran IVP 4 mg Q6H PRN Administration Nausea/Vomiting Pantoprazole Sodium 40 mg 12/21/19 21:00 12/22/19 08:19 Protonix PO Not Given BID [facility] Potassium Chloride 10 meq 12/22/19 09:00 12/22/19 08:19 Klor-Con 10 PO Not Given DAILY [facility] Ursodiol 300 mg 12/21/19 21:00 12/22/19 15:00 Actigal PO Not Given TID DYLAN - Exam General Appearance: NAD Heart: RRR, no gallops Respiratory: no wheezes, rhonchi Gastrointestinal: non-tender, normal bowel sounds Extremities: no cyanosis Neurological: no new deficit Psychiatric: normal affect, A&O x 3 Hosp A/P - Plan DVT proph w/SCDs Sepsis due to Influenza A Cholelithiasis Liver Cirrhosis with pancytopenia/coagulopathy/portal HTN Obesity BMI 35.9 DM2 Hyponatremia HTN CKD 3 HLD PLAN: Start Tamiflu Cefepime dced RUQ USG - reviewed DC IVF after this bag Cont other meds as above
[2019-12-23] MEDS: Levothyroxine Sodium 25 MCG TAB PO SCH (05:29)
[2019-12-23] MEDS: Nadolol 40 MG TAB PO SCH (08:47)
[2019-12-23] MEDS: Oseltamivir 75 MG CAP PO SCH ×2 (08:48→23:05)
[2019-12-23] MEDS: Aspirin Chewable 81 MG TAB PO SCH (08:49)
[2019-12-23] MEDS: Ursodiol 300 MG CAP PO SCH ×3 (08:49→23:05)
[2019-12-23] MEDS: Potassium Chloride 10 MEQ TAB PO SCH (13:05)
--- NOTE | 2019-12-23 13:10 | PDOC.HOSPP ---
- Subjective Encounter Date: 12/23/19 Encounter Time: 09:30 Subjective: Patient seen and examined for Sepsis. Feels somewhat better. No CP or SOB. No new complaints. No overnight events - Objective Vital Signs & Weight: Vital Signs (12 hours) Temp Pulse Resp BP Pulse Ox 12/23/19 08:00 98.4 F 56 L 17 134/75 94 L 12/23/19 07:52 98.4 F 56 L 18 151/70 H 97 Weight Admit Weight 177 lb 9.6 oz Weight 177 lb 9.6 oz I&O: 12/22/19 12/23/19 12/24/19 06:59 06:59 06:59 Intake Total 2510 540 Balance 2510 540 Result Diagrams: 12/22/19 04:33 12/22/19 04:33 Additional Labs: Accuchecks 12/23/19 12/23/19 12/22/19 11:32 03:37 20:33 POC Glucose 84 91 111 H 12/22/19 16:31 POC Glucose 76 Hospitalist ROS - Review of Systems Respiratory: reports: cough, dry Cardiovascular: denies: chest pain, palpitations, orthopnea, paroxysmal noc. dyspnea, edema, light headedness, other Gastrointestinal: denies: nausea, vomiting, abdominal pain, diarrhea, constipation, melena, hematochezia, other - Medication Medications: Active Medications Generic Name Dose Route Start Last Admin Trade Name Freq PRN Reason Stop Dose Admin Aspirin 81 mg 12/22/19 09:00 12/23/19 08:49 Aspirin Chewable PO 81 mg DAILY DYLAN Administration Dextrose/Water 25 gm 12/21/19 11:09 12/22/19 05:33 Dextrose 50% SLOW IVP 25 gm PRN PRN Administration Hypoglycemia Lactulose 20 gm 12/21/19 21:00 12/23/19 13:04 Lactulose PO 20 gm BID DYLAN Administration Levothyroxine Sodium 25 mcg 12/22/19 06:00 12/23/19 05:29 Synthroid PO 25 mcg 0600 DYLAN Administration Nadolol 20 mg 12/22/19 09:00 12/23/19 08:47 Corgard PO 20 mg DAILY DYLAN Administration Ondansetron HCl 4 mg 12/21/19 02:14 12/21/19 09:40 Zofran IVP 4 mg Q6H PRN Administration Nausea/Vomiting Oseltamivir Phosphate 75 mg 12/23/19 09:00 12/23/19 08:48 Tamiflu PO 12/27/19 09:01 75 mg BID DYLAN Administration Pantoprazole Sodium 40 mg 12/21/19 21:00 12/23/19 08:49 Protonix PO 40 mg BID DYLAN Administration Potassium Chloride 10 meq 12/22/19 09:00 12/23/19 13:05 Klor-Con 10 PO 10 meq DAILY DYLAN Administration Sodium Chloride 10 ml 12/22/19 21:00 12/23/19 08:49 Flush - Normal Saline IVF 10 ml Q12HR DYLAN Administration Ursodiol 300 mg 12/21/19 21:00 12/23/19 13:08 Actigal PO 300 mg TID DYLAN Administration - Exam General Appearance: NAD Heart: RRR, no gallops Respiratory: no wheezes, no rales Gastrointestinal: non-tender, normal bowel sounds Extremities: no cyanosis Neurological: no new deficit Hosp A/P - Plan DVT proph w/SCDs Sepsis due to Influenza A Cholelithiasis Liver Cirrhosis with pancytopenia/coagulopathy/portal HTN Obesity BMI 35.9 DM2 Hyponatremia HTN CKD 3 HLD PLAN: Cont Tamiflu [facility] setup Patient feels too weak to go home today. DC later today if patient feels better or in AM Cont other meds as above
[2019-12-23 19:06] VITALS: BP 125/80; TEMP 98.9
[2019-12-24] MEDS: Levothyroxine Sodium 25 MCG TAB PO SCH (06:09)
[2019-12-24] MEDS: Ursodiol 300 MG CAP PO SCH (08:42)
[2019-12-24] MEDS: Oseltamivir 75 MG CAP PO SCH (08:42)
[2019-12-24] MEDS: Aspirin Chewable 81 MG TAB PO SCH (08:42)
[2019-12-24] MEDS: Potassium Chloride 10 MEQ TAB PO SCH (11:01)
[2019-12-24] MEDS: Nadolol 40 MG TAB PO SCH (11:02)
--- NOTE | 2019-12-24 15:52 | DIS ---
DATE OF ADMISSION: 12/20/2019 DATE OF DISCHARGE: 12/24/2019 DISCHARGE DISPOSITION: Home. FOLLOWUP: 1. Follow up with primary care physician, Dr. Santacruz, in 1 week. 2. Follow up with Dr. Evans as scheduled. 3. [facility] has been arranged. ALLERGIES: THE PATIENT IS ALLERGIC TO HYDROCODONE. DISCHARGE MEDICATIONS: Tamiflu 75 mg twice daily, #6. All other home medications were left unchanged. INPATIENT SENIOR QA ENGINEER: Infectious Disease, Dr. You. DIAGNOSTIC TESTS: 1. Chest x-ray on admission was negative for infiltrate. 2. Right upper quadrant ultrasound showed gallbladder wall thickening with cholelithiasis. The findings were equivocal for cholecystitis. It also showed right hepatic lobe mass. 3. HIDA scan was negative. 4. CT scan of the abdomen and pelvis without contrast showed cholelithiasis with gallbladder distention with possible subtle wall inflammation. It also showed moderate splenomegaly with small bilateral pleural effusion. 5. Strep pneumoniae urinary antigen was negative. Legionella antigen was negative. BRIEF HOSPITAL COURSE: The patient is a 74-year-old female with cirrhosis, hypertension, diabetes mellitus type 2, and CKD, presented to the hospital on December 20, 2019, with fever, cough, headache, along with generalized myalgia. Her temperature in the emergency room was 102.9. A chest x-ray was negative for infiltrate. Right upper quadrant ultrasound showed questionable cholecystitis. The patient also had significant right upper quadrant abdominal pain, which later resolved. HIDA scan was negative for acute cholecystitis. Her influenza screen initially was negative. Blood cultures remain negative at 48 hours. However, the respiratory viral panel was positive for influenza A. The patient was also evaluated by Infectious Disease, Dr. You. She showed good improvement with Tamiflu. She appears stable for discharge. FINAL DIAGNOSES: 1. Sepsis secondary to influenza A. 2. Chronic biliary cholangitis/cirrhosis. 3. Fever secondary to influenza A. 4. Liver cirrhosis with pancytopenia, coagulopathy, and portal hypertension. 5. Obesity with a BMI of 35.9. 6. Diabetes mellitus type 2. 7. Hyponatremia. 8. Hypertension. 9. Chronic kidney disease, stage 2. 10. Hyperlipidemia. 11. Right hepatic lobe mass. The patient will follow up with GI Clinic as outpatient. 12. The patient understands the above plan of care. Job ID: [id number]
--- NOTE | 2019-12-26 09:50 | PQF ---
MELITON ROSSI MALIK MD [id number] CLINICAL DOCUMENTATION CLARIFICATION FORM: POST DISCHARGE Addendum to original discharge summary date: ____ Late entry note date: __ DATE:12/26/2019 ATTN:JAYNA MENDOZA MD Please exercise your independent, professional judgment in responding to the clarification form. Clinical indicators are provided on the bottom of this form for your review Please check appropriate box(s) to clarify if the following diagnosis has been ruled in or ruled out: Pneumonia [ x ] Ruled in diagnosis - suspected [ ] Continue to treat [ x ] Resolved [ ] Ruled out diagnosis [ ] Cannot rule out diagnosis [ ] Other diagnosis [ ] Unable to determine For continuity of documentation, please document condition throughout progress notes and discharge summary. Thank You. CLINICAL INDICATORS - SIGNS / SYMPTOMS / LABS Chest x ray showed possible pneumonia -Documented in H&P on 12/19 by Avelino Agustin MD Sepsis due to acute pneumonia -Documented in H&P on 12/19 by Avelino Saunders MD Pneumonia-Documented in H&P on 12/19 by Avelino Saunders MD Chronic biliary cholangitis with fever due to influenza A Discontinue antimicrobial therapy-Documented in PN on 12/21 by Israel You MD A chest x ray was negative for infiltrate-Documented in Discharge summary on by Oneal stahl MD Sepsis secondary to influenza A-Documented in Discharge summary on 12/23 by Oneal stahl MD RISK FACTORS Sepsis secondary to influenza A-Documented in Discharge summary on 12/23 by Oneal stahl MD TREATMENTS IV antibiotics started-Documented in H&P on 12/19 by Avelino Saunders MD Continue Tamiflu-Documented in PN on 12/21 by Israel You MD 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 All Rights Reserved [email or web address] [phone] MTDD
== END 2019-12-24 11:41 | disposition home or self-care (01) | DRG 871 ==
LOC: ERS 18:22 → T4-A 20:15
PROVIDERS: ADMIT Internal Medicine; ATTEND Internal Medicine
DX: A41.89 Other specified sepsis (principal); J18.9 Pneumonia, unspecified organism; D61.818 Other pancytopenia; D68.9 Coagulation defect, unspecified; K76.6 Portal hypertension; E87.1 Hypo-osmolality and hyponatremia; J10.1 Influenza due to other identified influenza virus with other respiratory manifestations; K80.20 Calculus of gallbladder without cholecystitis without obstruction; I12.9 Hypertensive chronic kidney disease with stage 1 through stage 4 chronic kidney disease, or unspecified chronic kidney disease; E11.22 Type 2 diabetes mellitus with diabetic chronic kidney disease; R16.0 Hepatomegaly, not elsewhere classified; F32.9 Major depressive disorder, single episode, unspecified; E03.9 Hypothyroidism, unspecified; K74.3 Primary biliary cirrhosis; N18.3 Chronic kidney disease, stage 3 (moderate); Z90.49 Acquired absence of other specified parts of digestive tract; Z88.5 Allergy status to narcotic agent; Z91.02 Food additives allergy status; Z95.1 Presence of aortocoronary bypass graft; E66.9 Obesity, unspecified; Z68.35 Body mass index [BMI] 35.0-35.9, adult; E78.5 Hyperlipidemia, unspecified
CPT/HCPCS: 36415; 36416; 51701; 71045; 74176; 76705; 78227; 80053; 81003; 81015; 82140; 83605; 83690; 83735; 85007; 85025; 85027; 85610; 85730; 86140; 87040; 87086; 87449; 87633; 87804; 87899; 94640; 96365; 96366; 96368; A4353; A9537; J0456; J0692; J1956; J2405; J2543; J3370; J3490; J7050; S0028

== ENCOUNTER 2019-12-29 10:36 | Outpatient (CLI) | payer MEDICARE, MEDICAID ==
--- NOTE | 2019-12-29 12:21 | MRI ---
MRI ABDOMEN WITH AND WITHOUT IV CONTRAST: Date: 12/29/2019 HISTORY: Cirrhosis of liver with liver mass. FINDINGS: Correlation is made with the gallbladder ultrasound of 12/22/[address] abdomen and pelvis of 2019. The spleen is enlarged measuring 14.5 cm in length. No gallstones are seen. There are heterogeneous m asses in the liver measuring 4.0 cm in the anterior segment of the right lobe of the liver and 2.5 cm in the medial segment of the left lobe of the liver. No abnormal biliary ductal dilatation is seen. No portal or splenic vein thrombosis is seen. Varicosities are seen in the left upper quadrant. The adrenal glands and kidneys are unremarkable. There is a 7.0 mm nonenhancing cystic mass arising from the anterior aspect of the body of the pancre as, No ascites seen. No evidence of lymphadenopathy. No aneurysmal dilatation of abdominal aorta noted. D egenerative changes in the spine. Gallstones are present. IMPRESSION: 1. Cirrhosis of the liver with liver masses suspicious for malignancy. 2. Splenomegaly. 3. Gallstones. 4. 7.0 mm cystic pancreatic mass. POS: MIMI
[2019-12-29] MEDS ORDERED: Magnevist 469MG/ML 20 ML VIAL ONE (14:45)
== END 2019-12-29 10:37 | disposition home or self-care (01) ==
LOC: BICMRI 10:36
PROVIDERS: ATTEND Internal Medicine Gastroenterology
DX: R16.2 Hepatomegaly with splenomegaly, not elsewhere classified (principal); K74.60 Unspecified cirrhosis of liver; K74.3 Primary biliary cirrhosis; K80.20 Calculus of gallbladder without cholecystitis without obstruction; K86.89 Other specified diseases of pancreas
CPT/HCPCS: 74183; 82565; A9579